=== PATIENT | male | born 1940 | race Caucasian/White ===

== ENCOUNTER → 2023-08-21 14:34 | Outpatient (REF) | payer MEDICARE, SELFPAY ==
[2023-08-21 17:04] LABS: Albumin 3.7 g/dl (3.5-5.0); Blood Urea Nitrogen 40 mg/dl (9-20); Calcium 8.6 mg/dl (8.4-10.2); Carbon Dioxide 19 mmol/L (22-30); Chloride 112 mmol/L (98-107); Glucose 91 mg/dl (70-99); Phosphorus 4.2 mg/dl (2.5-4.5); Potassium 5.1 mmol/L (3.5-5.1); Sodium 140 mmol/L (135-145); eGFR 49.56
== END ==
LOC: REG 14:34
PROVIDERS: ATTENDING PHYSICIAN Internal Medicine Cardiovascular Disease; FAMILY PHYSICIAN Family Medicine
DX: I50.22 Chronic systolic (congestive) heart failure (principal); I48.21 Permanent atrial fibrillation; I25.10 Atherosclerotic heart disease of native coronary artery without angina pectoris
CPT/HCPCS: 36415; 80069

== ENCOUNTER 2023-08-29 15:44 | Inpatient (IN) | payer MEDICARE, SELFPAY ==
[2023-08-29] VITALS (12 sets, daily range): BP systolic 87–116; BP diastolic 51–74; BMI 28.1; BMI 27.1
--- NOTE | 2023-08-29 10:33 | ED.GENMED ---
History of Present Illness
General
Chief Complaint: Change in Mental Status
Source: patient and family
Time Seen by Provider: 08/29/23 09:56
Travel History
Have you had any contact with someone who has COVID-19?: No
Do you have any symptoms of coronavirus? Fever > 100 degrees, chills, cough, shortness of breath, sore throat, loss of taste or smell, muscle aches, or headache?: No
History of Present Illness
History of Present Illness:
83-year-old male presents to the emergency room for evaluation of altered mental status. Patient noted to be more confused than his baseline. Patient suffered a CVA in June. Went to rehab is apparently doing fairly well walking independently.
He does have some residual aphasia and processing things from a physical standpoint was discharged from therapy recently. Over the past several days has been noted to, confused. He fell approximate 4 to 5 days ago. Unclear if he had a head
injury. Patient also complaining of left shoulder pain fall., No chills. Patient has adequate oral intake.
Past History
Past History
ED Past Medical History: Arrthythmia (AFib), CAD, COPD, Hypercholesterolemia, Hypothyroidism and Other (abd aneurysm BPH)
ED Past Surgical History: Bowel resection, Cardiac (coronary stents) and Other (stenting of aorta, hernia repair)
Social History
Tobacco: Former smoker
Alcohol: None
Drug: None
Personal:
Living: with family
Employment: Retired
Family History
Family History: Other; Negative Early CAD
Phy Exam
Physical Exam
Physical Exam:
General: Awake, Alert, Oriented X3. Appears chronically ill
Vitals: Soft blood pressure
Head: Atraumatic
Eyes: Pupils equal, EOMI
Throat: Airway intact, no exudates, dry mucosa
Neck: Trachea midline
Lungs: Clear and equal b/l
Heart: Regular rate, no murmurs
Abd: Soft, Nontender, No pulsatile mass
Neuro: Muscle strength equal throughout, difficulty evaluating left arm due to shoulder pain
Skin: Warm, dry, no rash
Extremities: pulses equal b/l, no edema
Course
Orders/Labs/Results
Orders:
Orders
08/29/23 10:20
Urinalysis Reflex To Culture Urgent
Date Specimen was Collected: 08/29/23
Time Specimen was Collected: 10:41
Urine Microscopic Reflex Cult Urgent
08/29/23 10:31
0.9% Sodium Chloride 500 ml [Nss] 500 ml IV BOLUS
08/29/23 10:32
CT Head W/o Iv Contrast Urgent
Comment:
Reason For Exam: altered mental status
08/29/23 10:33
CR Chest - 2 Views Urgent
Comment:
Reason For Exam: altered mental status
08/29/23 10:36
Shoulder, Left, Trauma CR [CR Shoulder, Trauma - Left] Urgent
Comment:
Reason For Exam: pain after a fall
08/29/23 10:47
Complete Blood Count/With Diff Urgent
Comprehensive Metabolic Panel Urgent
Lactic Acid Q4H
Comment: CANCEL 2nd LACTIC ACID IF 1st LACTIC ACID IS LESS THAN 2
Abnormal Lab Results
08/29/23 08/29/23
10:20 10:47
WBC 12.5 H 10^3/uL
(4.8-10.8)
RBC 3.62 L 10^6/uL
(4.70-6.10)
Hgb 9.9 L g/dL
(13.0-18.0)
Hct 30.2 L %
(39.0-52.0)
MCHC 32.8 L g/dL
(33.0-37.0)
RDW 20.8 H %
(11.5-14.5)
Plt Count 109 L 10^3/uL
(130-400)
Abs Immat Gran (auto) 0.1 H 10^3/uL
(0-0.05)
Absolute Neuts (auto) 10.9 H 10^3/uL
(1.4-6.5)
Absolute Lymphs (auto) 0.9 L 10^3/uL
(1.2-3.4)
Immature Gran % 0.7 H %
(0-0.5)
Neutrophils % 87.0 H %
(42.2-75.2)
Lymphocytes % 6.9 L %
(20.5-51.1)
Chloride 109 H mmol/L
(98-107)
Carbon Dioxide 21 L mmol/L
(22-30)
BUN 38 H mg/dl
(9-20)
Glucose 127 H mg/dl
(70-99)
Total Bilirubin 2.9 H mg/dl
(0.2-1.3)
Urine Ketones Trace A
(Negative)
Urine Bilirubin 1+ A
(Negative)
Leukocyte Esterase Rfl Trace A
(Negative)
08/29/23 10:47
08/29/23 10:47
Vital Signs
Initial and Last Documented VS:
Initial Vital Signs
Temp Pulse Resp BP
97.6 F 80 20 94/51
08/29/23 09:46 08/29/23 09:46 08/29/23 09:46 08/29/23 09:46
Last Documented Vital Signs
Temp Pulse Resp BP Pulse Ox
98.7 F 80 18 116/67 95
08/29/23 10:53 08/29/23 12:30 08/29/23 12:30 08/29/23 12:03 08/29/23 12:15
MDM/Problems Addressed
Differential Diagnosis Includes:
UTI, renal failure, electrode abnormality, dehydration, CVA
MDM/Problems Addressed:
Patient presents with increased confusion, difficulty ambulating. Gross muscle weakness on exam patient clearly cannot ambulate like he did a couple days ago. Exacerbating factors such as UTI or lab abnormality. Will hospitalize patient for
neurology evaluation, further workup.
Chronic conditions affecting care: HTN and CAD
*Radiology
Radiology exam reviewed: radiology read reviewed
*Pulse Oximetry
Patient hypoxic: no
*Critical Care Note
Total Time (30-74mins, 75-104mins- exclusive of procedures): Not Applicable
ED Attending Note
-
Portions of this chart may have been created with voice recognition software.� Occasional wrong word or��sound alike� substitutions may have occurred due to the inherent limitations of voice recognition software.
Discharge Plan
Departure
Patient Disposition: Admit
Date of Disposition: 08/29/23
Time of Disposition: 13:57
Admit to: Telemetry
Presentation/result/management discussed w/ accepting MD/DO: Hospitalist
Condition: Fair
Discharge Problem:
Altered mental status
Prescriptions:
No Action
levothyroxine 50 MCG tablet
50 mcg PO DAILY
furosemide 40 mg Tablet
40 mg PO DAILY Qty: 0 0RF
atorvastatin 40 mg Tablet
40 mg PO HS
Eliquis 5 mg Tablet
5 mg PO BID
Entresto 24-26 mg Tablet
1 tab PO BID
Trelegy Ellipta 100-62.5-25 mcg Blister With Device
1 inh INHALATION DAILY
pantoprazole 40 mg tablet,delayed release (DR/EC)
40 mg PO HS
finasteride 5 MG tablet
5 mg PO DAILY
Referrals:
Tashi Rueda MD [Family Provider] -
Interventions
Interventions:
*Risk Screen - Suicide Last Done: 08/29/23 10:40
*General Assessment Last Done: 08/29/23 10:40
*Neglect/Abuse Screening Last Done: 08/29/23 10:40
ED- Fall Risk Assessment Last Done: 08/29/23 10:40
*ED COVID-19 Vaccine History Last Done: 08/29/23 09:46
ED- Pulmonary Assessment Last Done: 08/29/23 10:40
ED-Psychological Assessment Last Done: 08/29/23 10:40
ED- Neurological Assessment Last Done: 08/29/23 10:40
ED- Cardiac Assessment Last Done: 08/29/23 10:40
ED Swallowing Screen Last Done: 08/29/23 10:40
Discharge Date and Time
Print Language: BENGALI
[2023-08-29] MEDS: NSS 500 IV (10:54)
[2023-08-29 11:04] LABS: Urine Albumin Trace (Neg - Trace); Urine Bilirubin 1+ (Negative); Urine Character Clear (Clear); Urine Color Amber; Urine Glucose Negative (Negative); Urine Ketone Trace (Negative); Urine Leukocyte Trace (Negative); Urine Nitrite Negative (Negative); Urine Occult Blood Negative (Negative); Urine Specific Gravity 1.025 (<1.030); Urine Urobilinogen 1+ (Neg - 1+)
[2023-08-29 11:09] LABS: % Basophils 0.3 % (0-2); % Eosinophils 0.1 % (0-6); % Immature Granulocytes 0.7 % (0-0.5); % Lymphocytes 6.9 % (20.5-51.1); Absolute Immature Granulocytes 0.1 10^3/uL (0-0.05); Absolute Lymphocytes 0.9 10^3/uL (1.2-3.4); Absolute Monocytes 0.6 10^3/uL (0.1-0.6); Absolute Neutrophils 10.9 10^3/uL (1.4-6.5); Hematocrit 30.2 % (39.0-52.0); Hemoglobin 9.9 g/dL (13.0-18.0); Mean Corp Hgb Conc. 32.8 g/dL (33.0-37.0); Mean Corpuscular Hgb 27.3 pg (27.0-31.0); Mean Corpuscular Volume 83.4 fL (80.0-94.0); Mean Platelet Volume 9.9 fL (7.4-10.4); Nucleated Red Blood Cells % 0 % (-); Platelet Count 109 10^3/uL (130-400); Red Blood Cell Count 3.62 10^6/uL (4.70-6.10); Red Cell Dist. Width 20.8 % (11.5-14.5); White Blood Cell Count 12.5 10^3/uL (4.8-10.8)
[2023-08-29 11:17] LABS: Lactic Acid 1.9 mmol/L (0.7-2.0)
[2023-08-29 11:18] LABS: ALT (SGPT) 12 U/L (0-50); AST (SGOT) 20 U/L (17-59); Albumin 3.7 g/dl (3.5-5.0); Alkaline Phosphatase 70 U/L (38-126); Blood Urea Nitrogen 38 mg/dl (9-20); Calcium 8.7 mg/dl (8.4-10.2); Carbon Dioxide 21 mmol/L (22-30); Chloride 109 mmol/L (98-107); Estimated Creatinine Clearance 41 ml/min; Glucose 127 mg/dl (70-99); Potassium 4.3 mmol/L (3.5-5.1); Sodium 138 mmol/L (135-145); Total Bilirubin 2.9 mg/dl (0.2-1.3); Total Protein 7.3 g/dl (6.3-8.2); eGFR 54.17
[2023-08-29 11:20] LABS: Urine Red Blood Cell 0-2 /HPF (0-2); Urine Squamous Cell 0-2 /LPF (Few); Urine White Cell 0-2 /HPF (0-5)
--- NOTE | 2023-08-29 14:58 | HPS.HSE ---
Family Physician
-
Family Physician: Tashi Rueda
Chief Complaint
-
Confusion, left-sided weakness
History of Present Illness
83-year-old male with a past medical history of recent stroke in June 2023 with residual aphasia, permanent atrial fibrillation on Eliquis, CHF, COPD, hypertension, hyperlipidemia, and hypothyroidism presents with a 1 day history of ambulatory
dysfunction, left-sided weakness, and confusion. Patient was admitted at [facility] in June 2023 for stroke, and discharged to short-term rehab. His only residual deficits were aphasia per family. He was released from the short-term
rehab to live with his son and [id number] 4-6 weeks ago. Yesterday, he developed confusion, and was having increased falls due to ambulatory dysfunction. He denies chest pain, shortness of breath, or palpitations. No fever, no vomiting.
Daughter reports that he has not missed any doses of his Eliquis.
Medical History
Past Medical History
Past Medical History: Reports Other
Additional Past Medical History:
Hypothyroidism, COPD, CHF, hyperlipidemia, essential hypertension, permanent atrial fibrillation on Xarelto, history of CVA, history of brachial artery injury intraoperatively requiring repair, history of lung granuloma, COVID-19 viral infection in
20, history of colitis, former smoker, AAA, BPH
Past Surgical History: Reports Other
Additional Past Surgical History:
RLE bypass, bowel resection, coronary stents, stenting of aorta, hernia repair, brachial artery injury intraoperatively requiring repair
Social History
Tobacco: Former Smoker
Alcohol: None
Drug: None
Living: With Family
Family History
Family History: Not pertinent
Allergies / Home Medications
Allergies reflects when Allergies were last updated in [facility].
Home Medications with original date entered in [facility]
Allergy/Medication List:
Allergies
Allergy/AdvReac Type Severity Reaction Status Date / Time
adhesive tape Allergy Unknown Verified 08/29/23 09:49
Iodinated Contrast Media Allergy BURNING Verified 08/29/23 09:49
[IV Dye, Iodine Containing] SENSATION
Home Medications Table - record
�Medication �Instructions �Recorded �Confirmed
finasteride 5 mg tablet 5 mg PO DAILY Urinary issue 06/07/20 08/29/23
levothyroxine 50 mcg tablet 50 mcg PO DAILY Thyroid 06/07/20 08/29/23
acetaminophen 325 mg tablet 650 mg PO Q6HPRN PRN mild pain 08/29/23 08/29/23
(Tylenol)
apixaban 5 mg tablet (Eliquis) 5 mg PO BID Blood Clot 08/29/23 08/29/23
Prevention/Tx
atorvastatin 40 mg tablet 40 mg PO HS High Cholesterol 08/29/23 08/29/23
fluticasone fur. 100 mcg-umeclid 1 inh inhalation R DAILY 08/29/23 08/29/23
62.5 mcg-vilant 25 mcg Lung/Breathing Issues
inhalat.powder (Trelegy Ellipta)
furosemide 40 mg tablet 40 mg PO DAILY Fluid 08/29/23 08/29/23
Retention/Swelling
pantoprazole 40 mg tablet,delayed 40 mg PO HS Gastrointestinal Issue 08/29/23 08/29/23
release
sacubitril 24 mg-valsartan 26 mg 1 tab PO BID Heart Failure 08/29/23 08/29/23
tablet (Entresto)
Review of Systems
-
A 12 point ROS was completed and negative except as noted: Yes
Physical Exam
Vital Signs
Vital Signs
Temp Pulse Resp BP Pulse Ox
98.1 F 77 16 96/64 96
08/29/23 14:48 08/29/23 14:48 08/29/23 14:48 08/29/23 14:48 08/29/23 14:48
Physical Exam
General: No Apparent Distress
HEENT: NormoCephalic, Anicteric and Moist mucous membranes
Cardiac: S1/S2 and Irregular Rhythm
GI: Soft, Non Tender, Non Distended and Normal Bowel Sounds
Musculoskeletal: No Clubbing, No Cyanosis, Edema, Left Lower Extremity and Edema, Right Lower Extremity
Skin: Warm and Dry
Neuro: Awake, Alert, Oriented (Oriented to person and place, not time) and Other (Aphasia noted. Left upper extremity and left lower extremity weakness noted)
Psych: Calm
Laboratory Results
-
08/29/23 10:47
08/29/23 10:47
Laboratory Results
Lactic Acid Cancelled 08/29/23 14:45
Total Bilirubin 2.9 mg/dl (0.2-1.3) H 08/29/23 10:47
AST 20 U/L (17-59) 08/29/23 10:47
ALT 12 U/L (0-50) 08/29/23 10:47
Alkaline Phosphatase 70 U/L (38-126) 08/29/23 10:47
Impression/Plan
-
HPI: 83-year-old male with a past medical history of recent stroke in June 2023 with residual aphasia, permanent atrial fibrillation on Eliquis, CHF, COPD, hypertension, hyperlipidemia, and hypothyroidism presents with a 1 day history of
ambulatory dysfunction, left-sided weakness, and confusion. Patient was admitted at [facility] in June 2023 for stroke, and discharged to short-term rehab. His only residual deficits were aphasia per family. He was released from the
short-term rehab to live with his son and [id number] 4-6 weeks ago. Yesterday, he developed confusion, and was having increased falls due to ambulatory dysfunction. He denies chest pain, shortness of breath, or palpitations. No fever, no
vomiting. Daughter reports that he has not missed any doses of his Eliquis.
#Left-sided weakness
#Altered mental status
Concerning for new CVA
Hold Eliquis, check brain MRI/MRA, check fasting lipid profile, check hemoglobin A1c
Give aspirin 325 mg stat, start aspirin 81 mg daily until MRI returns, continue statin
Consult neurology, PT/OT/SPL
Resume Eliquis when cleared by neurology
#History of recent stroke in June 2023 with residual aphasia
#History of hypertension
#Chronic CHF
Blood pressure soft, hold Entresto, hold Lasix
Will order midodrine for 5 mg every 4 hours as needed
#BPH
Continue finasteride
#COPD
Stable, continue bronchodilators
#Hypothyroidism
Continue Synthroid
#Gastroesophageal reflux disease
Continue PPI
DVT prophylaxis�subcu lovenox until neurology clears patient to resume Eliquis
Full code
Updated daughter and [id number] at bedside on 08/28
Total time spent to see the patient on the floor, examine the patient, review data and lab results, discuss treatment plan with patient, nursing staff around 75 minutes.
--- NOTE | 2023-08-29 15:49 | EDRN ---
pharmacy notified that orders were processed
--- NOTE | 2023-08-29 16:06 | EDRN ---
this RN called the receiving unit and notified them that paper report was going to be tubed up
[2023-08-29] MEDS: LOVENOX 40 MG SC (18:42)
[2023-08-29] MEDS: ASPIRIN 325 MG PO (19:48)
[2023-08-29] MEDS: PROTONIX 40 MG PO (22:24)
[2023-08-29] MEDS: LIPITOR 40 MG PO (22:24)
[2023-08-30] VITALS (8 sets, daily range): BP systolic 96–142; BP diastolic 54–94; PULSE 77; O2SAT 95; BMI 26.6
[2023-08-30] MEDS: SYNTHROID 50 MCG PO (05:44)
[2023-08-30 06:14] LABS: Hematocrit 30.7 % (39.0-52.0); Hemoglobin 9.7 g/dL (13.0-18.0); Mean Corp Hgb Conc. 31.6 g/dL (33.0-37.0); Mean Corpuscular Volume 85.5 fL (80.0-94.0); Mean Platelet Volume 9.1 fL (7.4-10.4); Platelet Count 98 10^3/uL (130-400); Red Blood Cell Count 3.59 10^6/uL (4.70-6.10); Red Cell Dist. Width 20.5 % (11.5-14.5); White Blood Cell Count 6.3 10^3/uL (4.8-10.8)
[2023-08-30 06:41] LABS: Blood Urea Nitrogen 36 mg/dl (9-20); Calcium 8.6 mg/dl (8.4-10.2); Carbon Dioxide 19 mmol/L (22-30); Chloride 111 mmol/L (98-107); Estimated Creatinine Clearance 46 ml/min; Glucose 97 mg/dl (70-99); HDL Cholesterol 23 mg/dl; LDL Cholesterol, Calculated 30 mg/dl; Magnesium 2.2 mg/dl (1.6-2.3); Potassium 3.6 mmol/L (3.5-5.1); Sodium 139 mmol/L (135-145); Total Cholesterol 66 mg/dl (50-199); Triglyceride 69 mg/dl (10-149); Very Low Density Lipoprotein 13 mg/dl (0-30); eGFR 59.63
[2023-08-30] MEDS: SYMBICORT 80/4.5 MCG INHALER 2 PUFF INH ×2 (07:48→19:50)
[2023-08-30] MEDS: SPIRIVA RESPIMAT 2.5 MCG 2 PUFF INH (07:48)
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
[2023-08-30] MEDS: PROSCAR 5 MG PO (08:11)
[2023-08-30] MEDS: ASPIR LOW (ENTERIC COATED) 81 MG PO (08:11)
--- NOTE | 2023-08-30 09:02 | W.PN.HOSP.TC ---
Today's Communication/Plan
-
see bold
Assessment / Plan
Assessment / Plan
HPI: 83-year-old male with a past medical history of recent stroke in June 2023 with residual aphasia, permanent atrial fibrillation on Eliquis, CHF, COPD, hypertension, hyperlipidemia, and hypothyroidism presents with a 1 day history of
ambulatory dysfunction, left-sided weakness, and confusion. Patient was admitted at [facility] in June 2023 for stroke, and discharged to short-term rehab. His only residual deficits were aphasia per family. He was released from the
short-term rehab to live with his son and jyqmiuiw-nh-pfl 4-6 weeks ago. Yesterday, he developed confusion, and was having increased falls due to ambulatory dysfunction. He denies chest pain, shortness of breath, or palpitations. No fever, no
vomiting. Daughter reports that he has not missed any doses of his Eliquis.
#Acute/subacute left CVA
#Left-sided weakness
#Altered mental status
MRI shows few small foci of nonhemorrhagic acute/subacute infarcts in the left cerebral hemisphere
Neurology recommends aspirin 81 mg x 4 weeks with the Eliquis, continue statin
Consult neurology, PT/OT/SPL
Resume Eliquis tomorrow per neurology
#History of recent stroke in June 2023 with residual aphasia
#History of hypertension
#Chronic CHF
Blood pressure soft, hold Entresto, hold Lasix
Improved, monitor for now
#BPH
Continue finasteride
#COPD
Stable, continue bronchodilators
#Hypothyroidism
Continue Synthroid
#Gastroesophageal reflux disease
Continue PPI
DVT prophylaxis�subcu lovenox today, eliquis tomorrow
Full code
Updated daughter and ldwusmfw-vf-zab at bedside on 08/28
Total time spent to see the patient on the floor, examine the patient, review data and lab results, discuss treatment plan with patient, nursing staff around 35 minutes.
Physical Exam
General: No Apparent Distress
HEENT: NormoCephalic, Anicteric and Moist mucous membranes
Cardiac: S1/S2 and Irregular Rhythm
GI: Soft, Non Tender, Non Distended and Normal Bowel Sounds
Musculoskeletal: No Clubbing, No Cyanosis, Edema, Left Lower Extremity and Edema, Right Lower Extremity
Skin: Warm and Dry
Neuro: Awake, Alert, Oriented (Oriented to person and place, not time) and Other (Aphasia noted. Left upper extremity and left lower extremity weakness noted)
Psych: Calm
Anticipated Discharge: Within 24 hours
Subjective/Interval History
-
Date of Service: August 30, 2023
Patient's left sided weakness and confusion are improved. No fever, no vomiting.
Objective Data
-
Labs:
Laboratory Results
08/30/23
05:42
WBC 6.3
Hgb 9.7 L
Hct 30.7 L
Plt Count 98 L
Sodium 139
Potassium 3.6
Chloride 111 H
Carbon Dioxide 19 L
BUN 36 H
Creatinine 1.2
Glucose 97
Calcium 8.6
Vital Signs:
Vital Signs
Temp Pulse Resp BP Pulse Ox
97.4 F 55 18 142/79 100
08/30/23 07:00 08/30/23 07:00 08/30/23 07:00 08/30/23 07:00 08/30/23 07:00
I&O
08/29/23 08/30/23 08/31/23
06:59 06:59 06:59
Intake Total 1060 / 1060
Output Total 600 / 600
Balance 460 / 460
[2023-08-30 09:23] LABS: Glycohemoglobin (HgbA1c) 4.9 % (4.0-5.6)
--- NOTE | 2023-08-30 12:32 | PTOTSP ---
ST Acute Care Evaluation:
Pt presents with mild oropharyngeal dysphagia characterized by impulsivity, reduced insight to deficits, mildly prolonged mastication and bolus formation, mildly reduced bolus formation, and intermittent deficits in airway protection with ingestion
of liquids.
Pt admitted that he is having more difficulty communicating than his baseline, and thus pt would benefit from a comprehensive cognitive communication evaluation.
Recommendations:
- DOWNGRADE pt's diet to SOFT BITE SIZED SOLIDS (IDDSI 6) and continue with REGULAR THIN LIQUIDS, meds whole in applesauce as needed.
- General aspiration precautions: Sitting upright for all PO intake; monitor intake rate and bite size; alternate bites/sips; intermittent supervision; no talking while eating/drinking.
- SLIP COVER MAKER to contact family re: baseline cognitive communication function as well as possibility of accessing hearing aids.
- SLIP COVER MAKER to complete comprehensive cognitive communication evaluation.
- SLIP COVER MAKER will continue to follow for skilled dysphagia tx.
[2023-08-30 12:58] LABS: TSH Reflex To Free T4 3.51 uIU/ml (0.47-4.68)
--- NOTE | 2023-08-30 15:48 | CM ---
Spoke with pts son Tomer
Pt lives in a apartment/in-law suite within his son's home. There are 14 steps to pts apartment, home is multi-story
Pt is confused at baseline, performs adl's with assist and cues, ambulates with rolling walker
DME - rolling walker, shower chair
SNF - has been to [facility] and [facility] in past
HH - has had [facility] in past
Will have ride at d/c
PCP - Dr Rueda
Pharm - [facility]
Seen by PT/OT - recommending SNF. Discussed with son - prefers [facility]. Will send referral in [facility]
Plan - anticipate SNF when medically ready
[2023-08-30] MEDS: LOVENOX 40 MG SC (17:02)
[2023-08-30 17:42] LABS: Folate 10.1 ng/ml (2.76-20); Vitamin B12 781 pg/ml (239-931)
[2023-08-30] MEDS: PROTONIX 40 MG PO (21:43)
[2023-08-30] MEDS: LIPITOR 40 MG PO (21:43)
[2023-08-31] VITALS (8 sets, daily range): BP systolic 96–144; BP diastolic 44–90; PULSE 84; BMI 25.9
[2023-08-31] MEDS: SYNTHROID 50 MCG PO (05:07)
[2023-08-31 06:04] LABS: Hematocrit 29.3 % (39.0-52.0); Hemoglobin 9.3 g/dL (13.0-18.0); Mean Corp Hgb Conc. 31.7 g/dL (33.0-37.0); Mean Corpuscular Hgb 27.3 pg (27.0-31.0); Mean Corpuscular Volume 85.9 fL (80.0-94.0); Mean Platelet Volume 9.4 fL (7.4-10.4); Platelet Count 106 10^3/uL (130-400); Red Blood Cell Count 3.41 10^6/uL (4.70-6.10); Red Cell Dist. Width 20.4 % (11.5-14.5); White Blood Cell Count 7.6 10^3/uL (4.8-10.8)
[2023-08-31 06:38] LABS: Blood Urea Nitrogen 35 mg/dl (9-20); Calcium 8.4 mg/dl (8.4-10.2); Carbon Dioxide 21 mmol/L (22-30); Chloride 112 mmol/L (98-107); Estimated Creatinine Clearance 50 ml/min; Glucose 102 mg/dl (70-99); Magnesium 2.1 mg/dl (1.6-2.3); Sodium 137 mmol/L (135-145); eGFR > 60.00
--- NOTE | 2023-08-31 07:39 | W.PN.NEURO.1 ---
Today's Communication / Plan
-
-Resume Apixaban full dosing
-Keep aspirin 81 mg daily and take this medication for 4 weeks to give some extra protection against atheroembolic stroke
-Continue Atorvastatin 40 mg daily
-Speech, physical therapies
-Goal normotension
-NIH and neurologic checks
Will follow as needed call with questions and concerns
Neuro Assessment/Plan
Assessment
Assessment: Embolic appearing strokes either atheroembolic or cardioembolic in source, occurred despite compliance with apixaban patient with multiple risk factors or atheroembolic stroke as well as risk for embolic stroke with atrial fibrillation.
Presented with sudden change in ambulation, mild aphasia
Subjective/Objective
Subjective Data
Date of Service: August 31, 2023
No acute events, denies headache, eating okay
Objective Data
Vital Signs
Temp Pulse Resp BP Pulse Ox
98.1 F 86 24 113/44 94
08/31/23 03:29 08/31/23 03:29 08/31/23 03:29 08/31/23 03:29 08/31/23 03:29
Lab Results
08/31/23 05:43
08/31/23 05:43
Sodium 137 mmol/L (135-145) 08/31/23 05:43
Potassium 4.0 mmol/L (3.5-5.1) 08/31/23 05:43
BUN 35 mg/dl (9-20) H 08/31/23 05:43
Glucose 102 mg/dl (70-99) H 08/31/23 05:43
Calcium 8.4 mg/dl (8.4-10.2) 08/31/23 05:43
LDL Cholesterol, Calc 30 mg/dl 08/30/23 05:42
Vitamin B12 781 pg/ml (239-931) 08/30/23 05:42
Patient Allergies
adhesive tape Allergy (Verified 08/29/23 09:49)
Unknown
Iodinated Contrast Media [IV Dye, Iodine Containing] Allergy (Verified 08/29/23 09:49)
BURNING SENSATION
Review of Systems
-
History Source: Patient
All other systems: Reviewed and negative
Constitutional: No Symptoms
EENT: No Symptoms Reported
Respiratory: No Symptoms
Cardiac: No Symptoms
Abdomen/GI: No Symptoms
Genitourinary: No Symptoms
Musculoskeletal: No Symptoms
Skin: No Symptoms
Neuro: Speech Problem
Endocrine: No Symptoms
Hematologic / Lymphatic: No Symptoms
Allergy / Immunology: No Symptoms
Physical Exam
-
General: Comfortable
Eyes: No Ptosis
HEENT: Normocephalic
Neck: No Bruits Bilaterally
Respiratory: Clear to Auscultation
Cardiac: Regular Rhythm
GI: Normal Bowel Sounds
Skin: Unremarkable
Extremities: No Clubbing
Psych: Confused; Negative Intact Judgement/Insight
Extended Neurological Exam
Attention Span & Concentration: Awake, Alert and Interactive
Memory: Reduced
Tremor: Hand Tremor Absent
Involuntary Movement: None
Speech: Expressive Aphasia, Receptive Aphasia and Dysarthric
Cranial Nerve II: Left Eye: Pupillary Reactivity Unremarkable, Pupillary Size Unremarkable and Visual Jackson Intact
Cranial Nerve II: Right Eye: Pupillary Reactivity Unremarkable, Pupillary Size Unremarkable and Visual Jackson Intact
Cranial Nerves III, IV, : Extraocular Movement: Extraocular Movement Full in all Directions
Pronator Drift: Drift in Left Upper Extremity
Deep Tendon Reflexes: Trace Throughout
Touch Sensation: Withdrawal to Pain
Coordination: Qpzuxe-huvw-trzoeh Testing Unremarkable
Data Reviewed
-
CT Head: Report Reviewed and Image Reviewed
MRI Head: Report Reviewed and Image Reviewed
MRA Head: Report Reviewed and Image Reviewed
Carotid Ultrasound: Report Reviewed
Echocardiogram: Report Reviewed
Labs: Report Reviewed
[2023-08-31] MEDS: SPIRIVA RESPIMAT 2.5 MCG 2 PUFF INH (08:09)
[2023-08-31] MEDS: SYMBICORT 80/4.5 MCG INHALER 2 PUFF INH ×2 (08:09→20:55)
--- NOTE | 2023-08-31 08:28 | W.PN.HOSP.TC ---
Today's Communication/Plan
-
Discharge to rehab when bed available
Assessment / Plan
Assessment / Plan
HPI: 83-year-old male with a past medical history of recent stroke in June 2023 with residual aphasia, permanent atrial fibrillation on Eliquis, CHF, COPD, hypertension, hyperlipidemia, and hypothyroidism presents with a 1 day history of
ambulatory dysfunction, left-sided weakness, and confusion. Patient was admitted at [facility] in June 2023 for stroke, and discharged to short-term rehab. His only residual deficits were aphasia per family. He was released from the
short-term rehab to live with his son and ezswzvvg-oc-caf 4-6 weeks ago. Yesterday, he developed confusion, and was having increased falls due to ambulatory dysfunction. He denies chest pain, shortness of breath, or palpitations. No fever, no
vomiting. Daughter reports that he has not missed any doses of his Eliquis.
#Acute/subacute left CVA
#Left-sided weakness
#Altered mental status
MRI shows few small foci of nonhemorrhagic acute/subacute infarcts in the left cerebral hemisphere
Neurology recommends aspirin 81 mg x 4 weeks, then stop, continue statin (LDL 30, A1C 4.9)
PT/OT/SPL rec STR. Resume Eliquis 08/31/23 per neurology
#History of recent stroke in June 2023 with residual aphasia
#History of hypertension
#Chronic CHF
Blood pressure improved, hold Entresto, resume Lasix
Improved, monitor for now
#BPH
Continue finasteride
#COPD
Stable, continue bronchodilators
#Hypothyroidism
Continue Synthroid
#Gastroesophageal reflux disease
Continue PPI
DVT prophylaxis�eliquis
Full code
Total time spent to see the patient on the floor, examine the patient, review data and lab results, discuss treatment plan with patient, nursing staff around 35 minutes.
Physical Exam
General: No Apparent Distress
HEENT: NormoCephalic, Anicteric and Moist mucous membranes
Cardiac: S1/S2 and Irregular Rhythm
GI: Soft, Non Tender, Non Distended and Normal Bowel Sounds
Musculoskeletal: No Clubbing, No Cyanosis, Edema, Left Lower Extremity and Edema, Right Lower Extremity
Skin: Warm and Dry
Neuro: Awake, Alert, Oriented (Oriented to person and place, not time) and Other (Aphasia noted. Left upper extremity and left lower extremity weakness noted)
Psych: Calm
Anticipated Discharge: Within 24 hours
Subjective/Interval History
-
Date of Service: August 31, 2023
Patient is left-sided weakness continues to improve. He still has aphasia, and confusion. No fever, no vomiting.
Objective Data
-
Labs:
Laboratory Results
08/31/23
05:43
WBC 7.6
Hgb 9.3 L
Hct 29.3 L
Plt Count 106 L
Sodium 137
Potassium 4.0
Chloride 112 H
Carbon Dioxide 21 L
BUN 35 H
Creatinine 1.1
Glucose 102 H
Calcium 8.4
Vital Signs:
Vital Signs
Temp Pulse Resp BP Pulse Ox
98.1 F 78 16 113/44 95
08/31/23 03:29 08/31/23 08:16 08/31/23 08:16 08/31/23 03:29 08/31/23 08:16
I&O
08/30/23 08/31/23 09/01/23
06:59 06:59 06:59
Intake Total 1060 / 1060 600 / 600
Output Total 600 / 600 550 / 550
Balance 460 / 460 50 / 50
[2023-08-31] MEDS: ASPIR LOW (ENTERIC COATED) 81 MG PO (09:21)
[2023-08-31] MEDS: ELIQUIS 5 MG PO ×2 (09:21→19:43)
[2023-08-31] MEDS: LASIX 40 MG PO (09:22)
[2023-08-31] MEDS: PROSCAR 5 MG PO (09:22)
--- NOTE | 2023-08-31 11:43 | CM ---
Addendum entered by Salima Garrett 08/31/23 15:04:
Called Savannah at [facility] to review referral
Original Note:
Case management following for d/c planning
Recommended SNF when medically stable
Spoke with daughter at bedside - aware of plan
CM will continue to follow for d/c needs
Plan - for SNF when medically stable - will need 3 might stay
[2023-08-31] MEDS: TYLENOL 650 MG PO (20:01)
[2023-08-31] MEDS: LIPITOR 40 MG PO (21:36)
[2023-08-31] MEDS: PROTONIX 40 MG PO (21:36)
[2023-09-01] VITALS (7 sets, daily range): BP systolic 78–125; BP diastolic 49–84; PULSE 80; O2SAT 99; BMI 25.9
[2023-09-01] MEDS: SYNTHROID 50 MCG PO (05:53)
--- NOTE | 2023-09-01 07:53 | W.PN.HOSP.TC ---
Today's Communication/Plan
-
Discharge to short-term rehab when bed available
Assessment / Plan
Assessment / Plan
HPI: 83-year-old male with a past medical history of recent stroke in June 2023 with residual aphasia, permanent atrial fibrillation on Eliquis, CHF, COPD, hypertension, hyperlipidemia, and hypothyroidism presents with a 1 day history of
ambulatory dysfunction, left-sided weakness, and confusion. Patient was admitted at [facility] in June 2023 for stroke, and discharged to short-term rehab. His only residual deficits were aphasia per family. He was released from the
short-term rehab to live with his son and [id number]-[id number] 4-6 weeks ago. Yesterday, he developed confusion, and was having increased falls due to ambulatory dysfunction. He denies chest pain, shortness of breath, or palpitations. No fever, no
vomiting. Daughter reports that he has not missed any doses of his Eliquis.
#Acute/subacute left CVA
#Left-sided weakness
#Altered mental status
MRI shows few small foci of nonhemorrhagic acute/subacute infarcts in the left cerebral hemisphere
Neurology recommends aspirin 81 mg x 4 weeks through 09/25/23. Eliquis resumed 08/31/2023 per neurology.
Continue statin (LDL 30, A1C 4.9). PT/OT/SPL rec STR.
Medically stable for discharge to short-term rehab when bed available.
#History of recent stroke in June 2023 with residual aphasia
#History of hypertension
#Chronic CHF
Blood pressure improved, can resume Lasix and Entresto
#Permanent atrial fibrillation
Continue Eliquis
Rate controlled without any beta-blockers
#Memory impairment concerning for dementia
Check B12, TSH. Follow-up with Dr. Chan outpatient for neuropsychiatric testing.
#BPH
Continue finasteride
#COPD
Stable, continue bronchodilators
#Hypothyroidism
Continue Synthroid
#Gastroesophageal reflux disease
Continue PPI
DVT prophylaxis�eliquis
Full code
Updated son on phone 08/31
Total time spent to see the patient on the floor, examine the patient, review data and lab results, discuss treatment plan with patient, nursing staff around 50 minutes.
Physical Exam
General: No Apparent Distress
HEENT: NormoCephalic, Anicteric and Moist mucous membranes
Cardiac: S1/S2 and Irregular Rhythm
GI: Soft, Non Tender, Non Distended and Normal Bowel Sounds
Musculoskeletal: No Clubbing, No Cyanosis, Edema, Left Lower Extremity and Edema, Right Lower Extremity
Skin: Warm and Dry
Neuro: Waxing waning confusion. Awake, Alert, Oriented to person and place, not time. Aphasia noted. Left upper extremity and left lower extremity weakness noted
Psych: Calm
Anticipated Discharge: 24 - 48 hours
Subjective/Interval History
-
Date of Service: September 01, 2023
No acute events. Confusion waxes and wanes. No fever, no vomiting.
Objective Data
-
Labs:
Laboratory Results
09/01/23
06:00
WBC Pending
Hgb Pending
Hct Pending
Plt Count Pending
Sodium Pending
Potassium Pending
Chloride Pending
Carbon Dioxide Pending
BUN Pending
Creatinine Pending
Glucose Pending
Calcium Pending
Vital Signs:
Vital Signs
Temp Pulse Resp BP Pulse Ox
97.5 F 81 20 125/67 94
09/01/23 03:37 09/01/23 03:37 09/01/23 03:37 09/01/23 03:37 09/01/23 03:37
I&O
08/31/23 09/01/23 09/02/23
06:59 06:59 06:59
Intake Total 600 / 600 520 / 520
Output Total 550 / 550
Balance 50 / 50 520 / 520
[2023-09-01] MEDS: SYMBICORT 80/4.5 MCG INHALER 2 PUFF INH ×2 (08:08→18:12)
[2023-09-01] MEDS: SPIRIVA RESPIMAT 2.5 MCG 2 PUFF INH (08:08)
[2023-09-01 09:25] LABS: Hematocrit 27.2 % (39.0-52.0); Hemoglobin 8.8 g/dL (13.0-18.0); Mean Corp Hgb Conc. 32.4 g/dL (33.0-37.0); Mean Corpuscular Hgb 26.7 pg (27.0-31.0); Mean Corpuscular Volume 82.4 fL (80.0-94.0); Mean Platelet Volume 10.5 fL (7.4-10.4); Platelet Count 110 10^3/uL (130-400); Red Cell Dist. Width 20.4 % (11.5-14.5); White Blood Cell Count 6.6 10^3/uL (4.8-10.8)
[2023-09-01] MEDS: ASPIR LOW (ENTERIC COATED) 81 MG PO (09:31)
[2023-09-01] MEDS: PROSCAR 5 MG PO (09:31)
[2023-09-01] MEDS: ELIQUIS 5 MG PO ×2 (09:31→20:43)
[2023-09-01] MEDS: LASIX 40 MG PO (09:31)
--- NOTE | 2023-09-01 10:27 | CM ---
Per Attending's request, contacted [facility]; spoke with Admissions office; unable to accept patient today.
CM will follow up with Savannah @ [facility] on Sunday
[2023-09-01 10:44] LABS: Blood Urea Nitrogen 34 mg/dl (9-20); Calcium 8.3 mg/dl (8.4-10.2); Carbon Dioxide 19 mmol/L (22-30); Chloride 111 mmol/L (98-107); Estimated Creatinine Clearance 55 ml/min; Glucose 95 mg/dl (70-99); Potassium 3.7 mmol/L (3.5-5.1); Sodium 136 mmol/L (135-145); eGFR > 60.00
[2023-09-01] MEDS: ENTRESTO 24 MG/26 MG 1 TAB PO (20:43)
[2023-09-01] MEDS: PROTONIX 40 MG PO (21:10)
[2023-09-01] MEDS: LIPITOR 40 MG PO (21:10)
[2023-09-02 03:47] VITALS: BP 121/62
[2023-09-02 06:00] VITALS: BMI 25.4
[2023-09-02] MEDS: SYNTHROID 50 MCG PO (06:04)
[2023-09-02 08:04] VITALS: BP 99/54
--- NOTE | 2023-09-02 08:05 | W.PN.HOSP.TC ---
Today's Communication/Plan
-
Discharge to short-term rehab when bed available
Assessment / Plan
Assessment / Plan
HPI: 83-year-old male with a past medical history of recent stroke in June 2023 with residual aphasia, permanent atrial fibrillation on Eliquis, CHF, COPD, hypertension, hyperlipidemia, and hypothyroidism presents with a 1 day history of
ambulatory dysfunction, left-sided weakness, and confusion. Patient was admitted at [facility] in June 2023 for stroke, and discharged to short-term rehab. His only residual deficits were aphasia per family. He was released from the
short-term rehab to live with his son and [id number] 4-6 weeks ago. Yesterday, he developed confusion, and was having increased falls due to ambulatory dysfunction. He denies chest pain, shortness of breath, or palpitations. No fever, no
vomiting. Daughter reports that he has not missed any doses of his Eliquis.
#Acute/subacute left CVA
#Left-sided weakness
#Altered mental status
MRI shows few small foci of nonhemorrhagic acute/subacute infarcts in the left cerebral hemisphere
Neurology recommends aspirin 81 mg x 4 weeks through 09/25/23. Eliquis resumed 08/31/2023 per neurology.
Continue statin (LDL 30, A1C 4.9). PT/OT/SPL rec STR.
Medically stable for discharge to short-term rehab when bed available.
#History of recent stroke in June 2023 with residual aphasia
#Acute on chronic normocytic anemia
Hemoglobin 8.8 today, was 9.9 upon admission
B12/folic acid normal, check iron studies, folic acid
Trend hemoglobin
#History of hypertension
#Chronic CHF
Blood pressure improved, resumed Lasix and Entresto with hold parameters
#Permanent atrial fibrillation
Continue Eliquis
Rate controlled without any beta-blockers
#Memory impairment concerning for dementia
B12, TSH normal. Follow-up with Dr. Chan outpatient for neuropsychiatric testing.
#BPH
Continue finasteride
#COPD
Stable, continue bronchodilators
#Hypothyroidism
Continue Synthroid
#Gastroesophageal reflux disease
Continue PPI
DVT prophylaxis�eliquis
Full code
Updated son on phone 08/31
Total time spent to see the patient on the floor, examine the patient, review data and lab results, discuss treatment plan with patient, nursing staff around 35 minutes.
Physical Exam
General: No Apparent Distress
HEENT: NormoCephalic, Anicteric and Moist mucous membranes
Cardiac: S1/S2 and Irregular Rhythm
GI: Soft, Non Tender, Non Distended and Normal Bowel Sounds
Musculoskeletal: No Clubbing, No Cyanosis, Edema, Left Lower Extremity and Edema, Right Lower Extremity
Skin: Warm and Dry
Neuro: Waxing waning confusion. Awake, Alert, Oriented to person and place, not time. Aphasia noted. Left upper extremity and left lower extremity weakness noted
Psych: Calm
Anticipated Discharge: Within 24 hours
Subjective/Interval History
-
Date of Service: September 01, 2023
No acute events overnight. Patient is intermittently confused. No fever, no vomiting.
Objective Data
-
Labs:
Laboratory Results
09/01/23
08:40
WBC 6.6
Hgb 8.8 L
Hct 27.2 L
Plt Count 110 L
Sodium 136
Potassium 3.7
Chloride 111 H
Carbon Dioxide 19 L
BUN 34 H
Creatinine 1.0
Glucose 95
Calcium 8.3 L
Vital Signs:
Vital Signs
Temp Pulse Resp BP Pulse Ox
97.6 F 68 16 102/76 95
09/01/23 11:00 09/01/23 11:00 09/01/23 11:00 09/01/23 11:09/01/23 08:12
I&O
08/31/23 09/01/23 09/02/23
06:59 06:59 06:59
Intake Total 600 / 600 520 / 520
Output Total 550 / 550
Balance 50 / 50 520 / 520
[2023-09-02 08:18] LABS: Hematocrit 26.7 % (39.0-52.0); Hemoglobin 8.6 g/dL (13.0-18.0); Mean Corp Hgb Conc. 32.2 g/dL (33.0-37.0); Mean Corpuscular Hgb 26.8 pg (27.0-31.0); Mean Corpuscular Volume 83.2 fL (80.0-94.0); Mean Platelet Volume 9.9 fL (7.4-10.4); Platelet Count 113 10^3/uL (130-400); Red Blood Cell Count 3.21 10^6/uL (4.70-6.10); Red Cell Dist. Width 19.9 % (11.5-14.5); White Blood Cell Count 8.1 10^3/uL (4.8-10.8)
[2023-09-02] MEDS: SPIRIVA RESPIMAT 2.5 MCG 2 PUFF INH (08:23)
[2023-09-02] MEDS: SYMBICORT 80/4.5 MCG INHALER 2 PUFF INH ×2 (08:23→20:10)
[2023-09-02] MEDS: ASPIR LOW (ENTERIC COATED) 81 MG PO (08:54)
[2023-09-02] MEDS: PROSCAR 5 MG PO (08:54)
[2023-09-02] MEDS: ELIQUIS 5 MG PO ×2 (08:54→19:42)
[2023-09-02] MEDS: LASIX PO (08:55)
[2023-09-02] MEDS: ENTRESTO 24 MG/26 MG PO (08:55)
[2023-09-02 08:58] LABS: Blood Urea Nitrogen 34 mg/dl (9-20); Calcium 8.5 mg/dl (8.4-10.2); Carbon Dioxide 18 mmol/L (22-30); Chloride 110 mmol/L (98-107); Estimated Creatinine Clearance 50 ml/min; Glucose 99 mg/dl (70-99); Iron 33 ug/dl (49-181); Potassium 3.9 mmol/L (3.5-5.1); Sodium 137 mmol/L (135-145); eGFR > 60.00
[2023-09-02 09:07] LABS: Percent Saturation 15 % (20-50); Total Iron Binding Capacity 211 ug/dl (261-462)
[2023-09-02 11:10] VITALS: BP 112/56
[2023-09-02 11:45] VITALS: BP 102/55; PULSE 73; O2SAT 96
--- NOTE | 2023-09-02 14:01 | PTOTSP ---
Speech Therapy
PORTRAIT PAINTER attempted to assess patient's communicative deficits with the use of the Quick Aphasia Battery in which patient's lethargy appeared to be a large barrier to completion. The patient scored the following: level of consciousness: 15/32, sentence
comprehension: , repetition: 10/03, motor speech: 2/6 tasks completed, and connected speech consisted of dysarthria, expressive aphasia, short (2 word utterances max), and inability to follow conversation (tangential at times).
Continuation of the assessment was stopped due to patient's poor alertness despite PORTRAIT PAINTER's attempt to redirect/ arouse patient. Given the above, expressive aphasia and dysarthria are likely barriers to communication.
PORTRAIT PAINTER will continue to follow; pending hospitalization.
[2023-09-02 15:30] VITALS: BP 94/44
[2023-09-02 19:40] VITALS: BP 116/61
[2023-09-02] MEDS: ENTRESTO 24 MG/26 MG 1 TAB PO (19:42)
[2023-09-02] MEDS: PROTONIX 40 MG PO (21:21)
[2023-09-02] MEDS: LIPITOR 40 MG PO (21:21)
[2023-09-03 03:58] VITALS: BP 110/61; BMI 25.4
[2023-09-03] MEDS: SYNTHROID 50 MCG PO (05:23)
--- NOTE | 2023-09-03 05:49 | W.PN.HOSP.TC ---
Today's Communication/Plan
-
Monitor H&H
Bowel Regimen
Hematology Eval
Assessment / Plan
Assessment / Plan
HPI: 83-year-old male with a past medical history of recent stroke in June 2023 with residual aphasia, permanent atrial fibrillation on Eliquis, CHF, COPD, hypertension, hyperlipidemia, and hypothyroidism presents with a 1 day history of
ambulatory dysfunction, left-sided weakness, and confusion. Patient was admitted at [facility] in June 2023 for stroke, and discharged to short-term rehab. His only residual deficits were aphasia per family. He was released from the
short-term rehab to live with his son and [id number] 4-6 weeks ago. Yesterday, he developed confusion, and was having increased falls due to ambulatory dysfunction. He denies chest pain, shortness of breath, or palpitations. No fever, no
vomiting. Daughter reports that he has not missed any doses of his Eliquis.
#Acute/subacute left CVA
#Left-sided weakness
#Altered mental status
MRI shows few small foci of nonhemorrhagic acute/subacute infarcts in the left cerebral hemisphere
Neurology recommends aspirin 81 mg x 4 weeks through 09/25/23. Eliquis resumed 08/31/2023 per neurology.
Continue statin (LDL 30, A1C 4.9). PT/OT/SPL rec STR.
#History of recent stroke in June 2023 with residual aphasia
#Acute on chronic normocytic anemia
#Anemia of Chronic Disease
Hemoglobin trended down to matthew 8.6, was 9.9 upon admission
B12/folic acid normal, Iron Studies suggestive anemia of chronic disease
Elevated Ferritin
no obvious signs of bleeding
Hgb starting to trend up
Hematology eval requested
#History of hypertension
#Chronic CHF
Blood pressure improved, resumed Lasix and Entresto with hold parameters, continue
#Permanent atrial fibrillation
Continue Eliquis
Rate controlled without any beta-blockers
#Memory impairment concerning for dementia
B12, TSH normal.
Follow-up with Dr. Chan outpatient for neuropsychiatric testing.
#BPH
Continue finasteride
#COPD
Stable, continue bronchodilators
#Hypothyroidism
Continue Synthroid
#Gastroesophageal reflux disease
Continue PPI
#Constipation
unclear when patient's last bowel movement was
none documented during current hospital stay
Laxatives started
DVT prophylaxis�eliquis
Full code
discussed with patient and his grandson at bedside, son Agustin over phone
Total time spent to see the patient on the floor, examine the patient, review data and lab results, discuss treatment plan with patient, nursing staff around 50 minutes.
Physical Exam
General: No Apparent Distress
HEENT: NormoCephalic, Anicteric and Moist mucous membranes
Cardiac: S1/S2 and Irregular Rhythm
GI: Soft, Non Tender, Non Distended and Normal Bowel Sounds
Musculoskeletal: No Clubbing, No Cyanosis, Edema, Left Lower Extremity and Edema, Right Lower Extremity
Skin: Warm and Dry
Neuro: Waxing waning confusion. Awake, Alert, Oriented to person and place, not time. Aphasia noted. Left upper extremity and left lower extremity weakness noted
Psych: Calm
Anticipated Discharge: 24 - 48 hours
Subjective/Interval History
-
Date of Service: September 03, 2023
No acute distress resting comfortably in bed. Grandson present during evaluation. Denies any new acute issues at this time. Unclear as to when patient last had bowel movement. None noted during hospitalization. Patient otherwise reports feeling
well. Denies nausea vomiting abd pain.
Objective Data
-
Vital Signs:
Vital Signs
Temp Pulse Resp BP Pulse Ox
97.6 F 76 20 110/61 94
09/03/23 03:58 09/03/23 03:58 09/03/23 03:58 09/03/23 03:58 09/03/23 03:58
I&O
09/01/23 09/02/2309/02/24
06:59 06:59 06:59
Intake Total 520 / 520 240 / 240
Output Total 600 / 600 150 / 150
Balance 520 / 520 -360 / -360 -150 / -150
[2023-09-03 07:00] VITALS: BP 115/79
[2023-09-03] MEDS: SPIRIVA RESPIMAT 2.5 MCG 2 PUFF INH (08:00)
[2023-09-03] MEDS: SYMBICORT 80/4.5 MCG INHALER 2 PUFF INH ×2 (08:01→19:47)
[2023-09-03] MEDS: ENTRESTO 24 MG/26 MG 1 TAB PO ×2 (08:07→21:16)
[2023-09-03] MEDS: ELIQUIS 5 MG PO ×2 (08:08→21:16)
[2023-09-03] MEDS: ASPIR LOW (ENTERIC COATED) 81 MG PO (08:08)
[2023-09-03] MEDS: LASIX 40 MG PO (08:08)
[2023-09-03] MEDS: PROSCAR 5 MG PO (08:09)
--- NOTE | 2023-09-03 12:52 | CM ---
Case management following for d/c planning
Accepted at [facility] for SNF - bed available
Per Dr Fish - not ready today - following anemia
Plan - SNF ([facility]) when medically ready
[2023-09-03 13:22] LABS: Hematocrit 28.8 % (39.0-52.0); Hemoglobin 9.4 g/dL (13.0-18.0); Mean Corp Hgb Conc. 32.6 g/dL (33.0-37.0); Mean Corpuscular Hgb 27.2 pg (27.0-31.0); Mean Corpuscular Volume 83.2 fL (80.0-94.0); Mean Platelet Volume 9.6 fL (7.4-10.4); Platelet Count 110 10^3/uL (130-400); Red Blood Cell Count 3.46 10^6/uL (4.70-6.10); Red Cell Dist. Width 20.1 % (11.5-14.5); White Blood Cell Count 6.5 10^3/uL (4.8-10.8)
[2023-09-03] MEDS: SENOKOT-S 1 TABLET PO ×2 (13:45→21:27)
[2023-09-03 13:49] LABS: Blood Urea Nitrogen 34 mg/dl (9-20); Calcium 8.2 mg/dl (8.4-10.2); Carbon Dioxide 19 mmol/L (22-30); Chloride 110 mmol/L (98-107); Estimated Creatinine Clearance 50 ml/min; Glucose 112 mg/dl (70-99); Potassium 3.9 mmol/L (3.5-5.1); Sodium 138 mmol/L (135-145); eGFR > 60.00
[2023-09-03 15:00] VITALS: BP 96/61
[2023-09-03 17:52] LABS: Transferrin 144 mg/dL (200-360)
[2023-09-03 20:04] VITALS: BP 105/65
[2023-09-03] MEDS: PROTONIX 40 MG PO (21:27)
[2023-09-03] MEDS: LIPITOR 40 MG PO (21:27)
[2023-09-03 23:29] VITALS: BP 100/62
[2023-09-04 03:47] VITALS: BP 117/62
[2023-09-04] MEDS: SYNTHROID 50 MCG PO (05:25)
[2023-09-04] MEDS: TYLENOL 650 MG PO (05:26)
[2023-09-04 06:00] VITALS: BMI 25.9
[2023-09-04 06:56] LABS: Hematocrit 29.2 % (39.0-52.0); Hemoglobin 9.3 g/dL (13.0-18.0); Mean Corp Hgb Conc. 31.8 g/dL (33.0-37.0); Mean Corpuscular Hgb 26.4 pg (27.0-31.0); Mean Platelet Volume 9.7 fL (7.4-10.4); Platelet Count 110 10^3/uL (130-400); Red Blood Cell Count 3.52 10^6/uL (4.70-6.10); Red Cell Dist. Width 19.8 % (11.5-14.5); White Blood Cell Count 6.5 10^3/uL (4.8-10.8)
--- NOTE | 2023-09-04 07:30 | W.PN.HOSP.TC ---
Today's Communication/Plan
-
discharge
Assessment / Plan
Assessment / Plan
HPI: 83-year-old male with a past medical history of recent stroke in June 2023 with residual aphasia, permanent atrial fibrillation on Eliquis, CHF, COPD, hypertension, hyperlipidemia, and hypothyroidism presents with a 1 day history of
ambulatory dysfunction, left-sided weakness, and confusion. Patient was admitted at [facility] in June 2023 for stroke, and discharged to short-term rehab. His only residual deficits were aphasia per family. He was released from the
short-term rehab to live with his son and [id number] 4-6 weeks ago. Yesterday, he developed confusion, and was having increased falls due to ambulatory dysfunction. He denies chest pain, shortness of breath, or palpitations. No fever, no
vomiting. Daughter reports that he has not missed any doses of his Eliquis.
#Acute/subacute left CVA
#Left-sided weakness
#Altered mental status
MRI shows few small foci of nonhemorrhagic acute/subacute infarcts in the left cerebral hemisphere
Neurology recommends aspirin 81 mg x 4 weeks through 09/25/23. Eliquis resumed 08/31/2023 per neurology.
Continue statin (LDL 30, A1C 4.9). PT/OT/SPL rec STR.
#History of recent stroke in June 2023 with residual aphasia
#Acute on chronic normocytic anemia
#Anemia of Chronic Disease
Hemoglobin trended down to matthew 8.6, was 9.9 upon admission
B12/folic acid normal, Iron Studies suggestive anemia of chronic disease
Elevated Ferritin
no obvious signs of bleeding
Hgb trending up stable >9
Outpatient Hematology follow up recommended
#History of hypertension
#Chronic CHF
Blood pressure improved, resumed Lasix and Entresto with hold parameters, continue
#Permanent atrial fibrillation
Continue Eliquis
Rate controlled without any beta-blockers
#Memory impairment concerning for dementia
B12, TSH normal.
Follow-up with Dr. Chan outpatient for neuropsychiatric testing.
#BPH
Continue finasteride
#COPD
Stable, continue bronchodilators
#Hypothyroidism
Continue Synthroid
#Gastroesophageal reflux disease
Continue PPI
#Constipation
resolved with bowel regimen
DVT prophylaxis�eliquis
Full code
Medically stable for discharge SNF rehab with outpatient follow up recommendations.
discussed with patient at bedside and son Agustin over phone
Total Time Preparing Discharge __50 minutes including examination of the patient, summary of the hospital stay, instructions for continuing care to all relevant caregivers; and preparation of discharge records, prescriptions, and referral
forms if necessary.
Physical Exam
General: No Apparent Distress
HEENT: NormoCephalic, Anicteric and Moist mucous membranes
Cardiac: S1/S2 and Irregular Rhythm
GI: Soft, Non Tender, Non Distended and Normal Bowel Sounds
Musculoskeletal: No Clubbing, No Cyanosis, Edema, Left Lower Extremity and Edema, Right Lower Extremity
Skin: Warm and Dry
Neuro: Waxing waning confusion. Awake, Alert, Oriented to person and place, not time. Aphasia noted. Left upper extremity and left lower extremity weakness noted
Psych: Calm
Anticipated Discharge: Today
Subjective/Interval History
-
Date of Service: September 04, 2023
Seen and examined at bedside in no acute distress resting comfortably in bed. Constipation noted resolved. Denies any new acute issues at this time. overall reports feeling well.
Objective Data
-
Labs:
Laboratory Results
09/04/23
06:27
WBC 6.5
Hgb 9.3 L
Hct 29.2 L
Plt Count 110 L
Sodium Pending
Potassium Pending
Chloride Pending
Carbon Dioxide Pending
BUN Pending
Creatinine Pending
Glucose Pending
Calcium Pending
Vital Signs:
Vital Signs
Temp Pulse Resp BP Pulse Ox
98.2 F 73 20 117/62 93
09/04/23 03:47 09/04/23 03:47 09/04/23 03:47 09/04/23 03:47 09/04/23 03:47
I&O
09/03/23 09/04/23 09/05/23
06:59 06:59 06:59
Intake Total 480 / 480 900 / 900
Output Total 150 / 150 650 / 650
Balance 330 / 330 250 / 250
[2023-09-04] MEDS: SPIRIVA RESPIMAT 2.5 MCG 2 PUFF INH (07:40)
[2023-09-04] MEDS: SYMBICORT 80/4.5 MCG INHALER 2 PUFF INH (07:41)
[2023-09-04 07:44] LABS: Blood Urea Nitrogen 31 mg/dl (9-20); Calcium 8.2 mg/dl (8.4-10.2); Carbon Dioxide 20 mmol/L (22-30); Chloride 110 mmol/L (98-107); Estimated Creatinine Clearance 55 ml/min; Glucose 99 mg/dl (70-99); Magnesium 2.1 mg/dl (1.6-2.3); Phosphorus 3.5 mg/dl (2.5-4.5); Potassium 3.7 mmol/L (3.5-5.1); Sodium 138 mmol/L (135-145); eGFR > 60.00
[2023-09-04 08:00] VITALS: BP 91/60
[2023-09-04] MEDS: SENOKOT-S 1 TABLET PO (08:46)
[2023-09-04] MEDS: ELIQUIS 5 MG PO (08:46)
[2023-09-04] MEDS: LASIX 40 MG PO (08:47)
[2023-09-04] MEDS: ENTRESTO 24 MG/26 MG 1 TAB PO (08:47)
[2023-09-04] MEDS: ASPIR LOW (ENTERIC COATED) 81 MG PO (08:47)
[2023-09-04] MEDS: PROSCAR 5 MG PO (08:47)
[2023-09-04] MEDS: MIRALAX 17 GRAMS PO (08:47)
--- NOTE | 2023-09-04 11:21 | CM ---
Addendum entered by Salima Garrett 09/04/23 12:35:
Transport at 3PM
Facility made aware
LM for pts son Tomer - transport time given
Original Note:
Case management following for d/c planning
Pt for d/c today
Spoke with Savannah at [facility] - able to accept today
Spoke with pts richelle Jeff - aware and agrees with plan
Discussed IMM with pts son
Plan - transfer to [facility]
R - [phone]
- [phone]
[2023-09-04 12:00] VITALS: BP 107/89
--- NOTE | 2023-09-04 13:56 | W.DCSUMMARY ---
Discharge Summary
Discharge Data
Date of Admission: 08/29/23
Date of Discharge: 09/04/23
-
Pending Results: No
Discharge Plan
-
Patient Disposition: Prison/SNF
Discharge Diagnosis/Procedures: Acute stroke, left-sided weakness, altered mental status, recent stroke in June with residual aphasia, permanent atrial fibrillation on Eliquis, Anemia of Chronic Disease
Condition: Good
Diet: Low Fat and Low Cholesterol
Additional Diets: small bites/soft diet
Activity: As tolerated
Driving Restrictions: No driving
Bathing Restrictions: None
Blood Work: Please repeat CBC and BMP with a primary care provider in 1 week of discharge
Other Services: PT, OT and ST
Activity Restrictions/Additional Instructions:
You had a stroke. Confusion from a stroke should improve with time.
Neurology recommends taking aspirin 81 mg for 4 weeks through 09/25/23.
However you may also be having confusion from dementia. Confusion from dementia will wax and wane. Please follow-up with Dr. Chan for neuropsychiatric testing for dementia.
Follow up with Hematology also recommended for anemia of chronic disease.
Please follow-up with your primary care doctor 1 week after leaving rehab.
Referrals:
Deuce Dia MD [Active] - in one month
Tashi Rueda MD [Family Provider] - in one week
Nino Chan PSY [Specified Professional Personl] - in two to four weeks
Karie Infante MD [Active] - in two to four weeks
Prescriptions:
New
aspirin 81 mg Tablet,Delayed Release (Dr/Ec)
81 mg PO DAILY Qty: 21 0RF
Rx Instructions:
Through 09/25/23 then stop
Continued
levothyroxine 50 MCG tablet
50 mcg PO DAILY
atorvastatin 40 mg Tablet
40 mg PO HS
Eliquis 5 mg Tablet
5 mg PO BID
Entresto 24-26 mg Tablet
1 tab PO BID
Trelegy Ellipta 100-62.5-25 mcg Blister With Device
1 inh INHALATION R DAILY
pantoprazole 40 mg tablet,delayed release (DR/EC)
40 mg PO HS
acetaminophen [Tylenol] 325 mg Tablet
650 mg PO Q6HPRN PRN (Reason: mild pain)
furosemide 40 mg tablet
40 mg PO DAILY
finasteride 5 MG tablet
5 mg PO DAILY
Discharge Orders:
Discharge Patient (As Directed); Ordered 09/04/23
Ordered By: Suzi Fish
Discharge Date and Time
Print Language: ESTONIAN
== END 2023-09-04 15:00 | DRG 65 ==
LOC: 3 WEST ACU 15:44
PROVIDERS: ADMITTING PHYSICIAN Family Medicine; ATTENDING PHYSICIAN Internal Medicine; CONSULT PHYSICIAN Student in an Organized Health Care Education/Training Program; EMERGENCY PHYSICIAN Emergency Medicine; FAMILY PHYSICIAN Family Medicine
DX: I63.9 Cerebral infarction, unspecified (principal); G81.94 Hemiplegia, unspecified affecting left nondominant side; I48.21 Permanent atrial fibrillation; D63.8 Anemia in other chronic diseases classified elsewhere; R47.01 Aphasia; I11.0 Hypertensive heart disease with heart failure; I50.9 Heart failure, unspecified; I25.10 Atherosclerotic heart disease of native coronary artery without angina pectoris; J44.9 Chronic obstructive pulmonary disease, unspecified; E03.9 Hypothyroidism, unspecified; E78.00 Pure hypercholesterolemia, unspecified; K21.9 Gastro-esophageal reflux disease without esophagitis
CPT/HCPCS: 70450; 70544; 70551; 71046; 73030; 80048; 80053; 80061; 81003; 81015; 82607; 82728; 82746; 83036; 83540; 83550; 83605; 83735; 84100; 84443; 84466; 85025; 85027; 92507; 92610; 93306; 93880; 94640; 96360; 97116; 97163; 97166; 97530; 97535; 99285

== ENCOUNTER → 2023-09-05 12:27 | Outpatient (REF) | payer OTHER, MEDICARE, SELFPAY ==
[2023-09-05 13:25] LABS: % Basophils 0.3 % (0-2); % Eosinophils 0.1 % (0-6); % Immature Granulocytes 0.7 % (0-0.5); % Lymphocytes 6.6 % (20.5-51.1); % Monocytes 5.6 % (1.7-9.3); % Neutrophils 86.7 % (42.2-75.2); Absolute Immature Granulocytes 0.1 10^3/uL (0-0.05); Absolute Lymphocytes 0.8 10^3/uL (1.2-3.4); Absolute Monocytes 0.7 10^3/uL (0.1-0.6); Absolute Neutrophils 10.4 10^3/uL (1.4-6.5); Hematocrit 29.8 % (39.0-52.0); Hemoglobin 9.4 g/dL (13.0-18.0); Mean Corp Hgb Conc. 31.5 g/dL (33.0-37.0); Mean Corpuscular Hgb 27.3 pg (27.0-31.0); Mean Corpuscular Volume 86.6 fL (80.0-94.0); Mean Platelet Volume 10.4 fL (7.4-10.4); Nucleated Red Blood Cells % 0 % (-); Platelet Count 110 10^3/uL (130-400); Red Blood Cell Count 3.44 10^6/uL (4.70-6.10); Red Cell Dist. Width 19.7 % (11.5-14.5)
[2023-09-05 14:19] LABS: Blood Urea Nitrogen 37 mg/dl (9-20); Calcium 8.2 mg/dl (8.4-10.2); Carbon Dioxide 20 mmol/L (22-30); Chloride 110 mmol/L (98-107); Glucose 115 mg/dl (70-99); Sodium 137 mmol/L (135-145); eGFR 59.63
== END ==
LOC: OLABP 12:27
PROVIDERS: ATTENDING PHYSICIAN Family Medicine
DX: I63.9 Cerebral infarction, unspecified (principal); I50.9 Heart failure, unspecified; J44.9 Chronic obstructive pulmonary disease, unspecified; I25.10 Atherosclerotic heart disease of native coronary artery without angina pectoris; I48.21 Permanent atrial fibrillation; I11.0 Hypertensive heart disease with heart failure
CPT/HCPCS: 36415; 80048; 85025

== ENCOUNTER 2023-09-06 18:23 | Inpatient (IN) | payer MEDICARE, SELFPAY ==
[2023-09-06] VITALS (14 sets, daily range): BP systolic 84–148; BP diastolic 37–133; BMI 28.5; BMI 26.9
[2023-09-06 11:11] LABS: % Basophils 0.3 % (0-2); % Eosinophils 0.1 % (0-6); % Immature Granulocytes 0.7 % (0-0.5); % Lymphocytes 7.4 % (20.5-51.1); % Monocytes 4.4 % (1.7-9.3); % Neutrophils 87.1 % (42.2-75.2); Absolute Immature Granulocytes 0.1 10^3/uL (0-0.05); Absolute Lymphocytes 0.7 10^3/uL (1.2-3.4); Absolute Monocytes 0.4 10^3/uL (0.1-0.6); Absolute Neutrophils 8.7 10^3/uL (1.4-6.5); Hematocrit 30.1 % (39.0-52.0); Hemoglobin 9.2 g/dL (13.0-18.0); Mean Corp Hgb Conc. 30.6 g/dL (33.0-37.0); Mean Corpuscular Hgb 26.3 pg (27.0-31.0); Mean Platelet Volume 9.8 fL (7.4-10.4); Nucleated Red Blood Cells % 0 % (-); Platelet Count 109 10^3/uL (130-400); Red Cell Dist. Width 19.8 % (11.5-14.5); White Blood Cell Count 9.9 10^3/uL (4.8-10.8)
[2023-09-06 11:26] LABS: ALT (SGPT) 17 U/L (0-50); AST (SGOT) 27 U/L (17-59); Alkaline Phosphatase 61 U/L (38-126); Blood Urea Nitrogen 49 mg/dl (9-20); Carbon Dioxide 19 mmol/L (22-30); Chloride 110 mmol/L (98-107); Estimated Creatinine Clearance 31 ml/min; Glucose 149 mg/dl (70-99); Sodium 136 mmol/L (135-145); Total Bilirubin 2.7 mg/dl (0.2-1.3); Total Protein 6.8 g/dl (6.3-8.2); eGFR 39.26
[2023-09-06 11:34] LABS: NT-proBNP 5450 pg/ml
--- NOTE | 2023-09-06 12:03 | ED.GENMED ---
History of Present Illness
<Kelley Garibay PA-C - Last Filed: 09/06/23 17:02>
General
Chief Complaint: Change in Mental Status
Source: patient and records
Exam Limitations: none
Time Seen by Provider: 09/06/23 12:02
Nursing documentation reviewed up to this point in time: agreed with
Travel History
Have you had any contact with someone who has COVID-19?: No
Do you have any symptoms of coronavirus? Fever > 100 degrees, chills, cough, shortness of breath, sore throat, loss of taste or smell, muscle aches, or headache?: No
History of Present Illness
History of Present Illness:
This is a 83-year-old male with a past medical history of COPD, A-fib on Eliquis, recent CVA, CHF presenting to the emergency department with concerns of low blood pressure and confusion. Patient was recently discharged from [facility] for
a stroke. Patient was transferred to [facility] rehab facility where staff noticed that his blood pressure was low today, systolically in the 80s. He also noted that he seemed a bit more confused than his baseline, but their main concern was the
blood pressure. Patient himself does not provide much history due to the confusion. I spoke to patient's son on phone who reports that ever since his stroke, patient has been confused, and he reports that 2 days ago when he visited him, he was
very hard to carry on a conversation with. [place] bailey also notes that patient fell last night from sitting onto the floor, unsure if there is a head strike. Patient himself denies any dysuria, abdominal pain, nausea, vomiting, fevers or chills,
shortness of breath.
Past History
<Kelley Garibay PA-C - Last Filed: 09/06/23 17:02>
Past History
ED Past Medical History: Arrthythmia (AFib), CAD, COPD, Hypercholesterolemia, Hypothyroidism and Other (abd aneurysm BPH)
ED Past Surgical History: Bowel resection, Cardiac (coronary stents) and Other (stenting of aorta, hernia repair)
Social History
Tobacco: Former smoker
Alcohol: None
Drug: None
Personal:
Living: with family
Employment: Retired
Family History
Family History: Other; Negative Early CAD
Review of Systems
<Kelley Garibay PA-C - Last Filed: 09/06/23 17:02>
Review of Systems
All Other Systems: ROS reviewed and negative except as documented in HPI and ROS
Phy Exam
<Kelley Garibay PA-C - Last Filed: 09/06/23 17:02>
Physical Exam
Physical Exam:
General: Patient is well appearing and in no acute distress; non-toxic
Skin: Warm and dry, no rashes or lesions
Head: Normocephalic, atraumatic
Eyes: Sclera non-icteric. EOMs intact. PERRLA.
Cardiac: Regular rate, no murmurs
Peripheral Vascular: No lower extremity swelling, 2+ dorsalis pedis pulses bilaterally
Pulm: Normal respiratory effort, no crackles heard on exam
Abdomen: No abdominal tenderness�no tenderness palpation in the right upper quadrant, no guarding, no rebound tenderness, no palpable mass
Neuro: CN II-XII intact, no focal neurologic deficits. Patient oriented to person but not place and time.
Psychiatric: Poor insight and judgement.
Course
<Kelley Garibay PA-C - Last Filed: 09/06/23 17:02>
Orders/Labs/Results
Orders:
Orders
09/06/23 10:45
Electrocardiogram (*1) Urgent
Reason for Study: Other
Other Reason for Exam: Respiratory Distress
Cardiac Monitoring- Treatment ONCE
EKG- Treatment ONCE
IV Insert/Care/Rem.- Treatment PRN
CR Chest - 2 Views Urgent
Comment:
Reason For Exam: respiratory distress
Pulse Ox/cont/shift [RESP] Urgent
Quantity: 1
Special Instructions: continuous pulse ox
09/06/23 10:53
Complete Blood Count/With Diff Urgent
Comprehensive Metabolic Panel Urgent
NT-proBNP Urgent
09/06/23 12:30
CT Head W/o Iv Contrast Urgent
Comment:
Reason For Exam: fall, confusion
09/06/23 12:37
Urinalysis Reflex To Culture Urgent
Date Specimen was Collected: 09/06/23
Time Specimen was Collected: 12:36
Urine Microscopic Reflex Cult Urgent
Urine Culture Urgent
KIAT Source: U
Specimen Description:
Date Specimen was Collected: 09/06/23
Time Specimen was Collected: 12:36
Abnormal Lab Results
09/06/23 09/06/23
10:53 12:37
RBC 3.50 L 10^6/uL
(4.70-6.10)
Hgb 9.2 L g/dL
(13.0-18.0)
Hct 30.1 L %
(39.0-52.0)
MCH 26.3 L pg
(27.0-31.0)
MCHC 30.6 L g/dL
(33.0-37.0)
RDW 19.8 H %
(11.5-14.5)
Plt Count 109 L 10^3/uL
(130-400)
Abs Immat Gran (auto) 0.1 H 10^3/uL
(0-0.05)
Absolute Neuts (auto) 8.7 H 10^3/uL
(1.4-6.5)
Absolute Lymphs (auto) 0.7 L 10^3/uL
(1.2-3.4)
Immature Gran % 0.7 H %
(0-0.5)
Neutrophils % 87.1 H %
(42.2-75.2)
Lymphocytes % 7.4 L %
(20.5-51.1)
Chloride 110 H mmol/L
(98-107)
Carbon Dioxide 19 L mmol/L
(22-30)
BUN 49 H mg/dl
(9-20)
Creatinine 1.7 H mg/dL
(0.7-1.3)
Glucose 149 H mg/dl
(70-99)
Calcium 8.0 L mg/dl
(8.4-10.2)
Total Bilirubin 2.7 H mg/dl
(0.2-1.3)
Albumin 3.0 L g/dl
(3.5-5.0)
Urine Bilirubin 1+ A
(Negative)
Urine Urobilinogen 3+ A
(Neg - 1+)
Leukocyte Esterase Rfl Trace A
(Negative)
Urine Bacteria (Reflex) Moderate A
(Negative)
09/06/23 10:53
09/06/23 10:53
Vital Signs
Initial and Last Documented VS:
Initial Vital Signs
Temp Pulse Resp Pulse Ox
97.7 F 71 18 100
09/06/23 10:48 09/06/23 10:48 09/06/23 10:48 09/06/23 10:48
Last Documented Vital Signs
Temp Pulse Resp BP Pulse Ox
97.7 F 77 20 97/73 96
09/06/23 10:48 09/06/23 15:00 09/06/23 15:00 09/06/23 14:00 09/06/23 11:07
<Chris Stockton MD - Last Filed: 09/06/23 14:08>
Orders/Labs/Results
Orders:
Orders
09/06/23 10:45
Electrocardiogram (*1) Urgent
Reason for Study: Other
Other Reason for Exam: Respiratory Distress
Cardiac Monitoring- Treatment ONCE
EKG- Treatment ONCE
IV Insert/Care/Rem.- Treatment PRN
CR Chest - 2 Views Urgent
Comment:
Reason For Exam: respiratory distress
Pulse Ox/cont/shift [RESP] Urgent
Quantity: 1
Special Instructions: continuous pulse ox
09/06/23 10:53
Complete Blood Count/With Diff Urgent
Comprehensive Metabolic Panel Urgent
NT-proBNP Urgent
09/06/23 12:30
CT Head W/o Iv Contrast Urgent
Comment:
Reason For Exam: fall, confusion
09/06/23 12:37
Urinalysis Reflex To Culture Urgent
Date Specimen was Collected: 09/06/23
Time Specimen was Collected: 12:36
Urine Microscopic Reflex Cult Urgent
Urine Culture Urgent
KAIT Source: U
Specimen Description:
Date Specimen was Collected: 09/06/23
Time Specimen was Collected: 12:36
Abnormal Lab Results
09/06/23 09/06/23
10:53 12:37
RBC 3.50 L 10^6/uL
(4.70-6.10)
Hgb 9.2 L g/dL
(13.0-18.0)
Hct 30.1 L %
(39.0-52.0)
MCH 26.3 L pg
(27.0-31.0)
MCHC 30.6 L g/dL
(33.0-37.0)
RDW 19.8 H %
(11.5-14.5)
Plt Count 109 L 10^3/uL
(130-400)
Abs Immat Gran (auto) 0.1 H 10^3/uL
(0-0.05)
Absolute Neuts (auto) 8.7 H 10^3/uL
(1.4-6.5)
Absolute Lymphs (auto) 0.7 L 10^3/uL
(1.2-3.4)
Immature Gran % 0.7 H %
(0-0.5)
Neutrophils % 87.1 H %
(42.2-75.2)
Lymphocytes % 7.4 L %
(20.5-51.1)
Chloride 110 H mmol/L
(98-107)
Carbon Dioxide 19 L mmol/L
(22-30)
BUN 49 H mg/dl
(9-20)
Creatinine 1.7 H mg/dL
(0.7-1.3)
Glucose 149 H mg/dl
(70-99)
Calcium 8.0 L mg/dl
(8.4-10.2)
Total Bilirubin 2.7 H mg/dl
(0.2-1.3)
Albumin 3.0 L g/dl
(3.5-5.0)
Urine Bilirubin 1+ A
(Negative)
Urine Urobilinogen 3+ A
(Neg - 1+)
Leukocyte Esterase Rfl Trace A
(Negative)
Urine Bacteria (Reflex) Moderate A
(Negative)
09/06/23 10:53
09/06/23 10:53
Vital Signs
Initial and Last Documented VS:
Initial Vital Signs
Temp Pulse Resp Pulse Ox
97.7 F 71 18 100
09/06/23 10:48 09/06/23 10:48 09/06/23 10:48 09/06/23 10:48
Last Documented Vital Signs
Temp Pulse Resp BP Pulse Ox
97.7 F 77 20 97/73 96
09/06/23 10:48 09/06/23 15:00 09/06/23 15:00 09/06/23 14:00 09/06/23 11:07
<Kelley Garibay PA-C - Last Filed: 09/06/23 17:02>
MDM/Problems Addressed
Differential Diagnosis Includes:
Differential diagnosis includes dehydration, CVA deficit, polypharmacy, delirium, dementia, urinary tract infection, pneumonia,
MDM/Problems Addressed:
altered mental status/hypotension
Chronic conditions affecting care:
afib, CAD, CHF, hyperlipedemia, hypertension, CVA, dementia
<Kelley Garibay PA-C - Last Filed: 09/06/23 17:02>
*Critical Care Note
Total Time (30-74mins, 75-104mins- exclusive of procedures): Not Applicable
<LISA Bañuelos Last Filed: 09/06/23 17:02>
Patient Management
Escalation/DeEscalation of care consider admission/obs:
This is a 83-year-old male with a past medical history of COPD, A-fib on Eliquis, recent CVA, CHF presenting to the emergency department with concerns of low blood pressure and confusion. Patient was recently discharged from [facility] for
a stroke. Son reports that this appears to be patient's baseline as after the stroke, he has been very confused. [place] run seemed to be very concerned about his low blood pressure, upon review of previous records, it appears that patient's blood
pressure does run lower at his baseline. On exam, patient is oriented to person but not place or time. He has no focal deficits, his CBC demonstrates a chronic anemia and his CMP shows a OBI as well as a baseline elevated bilirubin. Considering
he was just discharged 2 days ago, we spoke to the hospitalist physician on-call who happened to see him throughout his hospital stay, and he recommends admission and is concerned about overdiuresis and acute encephalopathy. Patient made aware of
plan. Son updated.
ED Attending Note
<Kelley Garibay PA-C - Last Filed: 09/06/23 17:02>
-
Portions of this chart may have been created with voice recognition software.� Occasional wrong word or��sound alike� substitutions may have occurred due to the inherent limitations of voice recognition software.
<Chris Stockton MD - Last Filed: 09/06/23 14:08>
ED Attending Note
Patient seen and examined by attending physician: Yes
I performed the substantive portion of visit, reviewed & personally made and approve the management plan that is documented in note by myself or ANDERS.: Yes
ED Attending Note:
Patient sent for some increased confusion and mental status changes. Recently discharged for CVA. On exam patient is mildly hypotensive. Alert to name only. Warm and dry. Perfusing well. Lungs clear and equal. Heart mildly irregular.
Baseline mental status somewhat difficult not knowing this patient. Suspect this is near his baseline. Mildly prerenal. Will ask the hospitalist to evaluate who know this patient from 2 days ago.
Discharge Plan
Departure
Patient Disposition: Admit
Date of Disposition: 09/06/23
Time of Disposition: 16:42
Admit to: Med/Surg
Admit to doctor: Dr. Fish
Presentation/result/management discussed w/ accepting MD/DO: Hospitalist
Patient with high blood pressure during this ER visit?: No
Condition: Fair
Discharge Problem:
OBI (acute kidney injury), Altered mental status
Prescriptions:
No Action
levothyroxine 50 MCG tablet
50 mcg PO DAILY
atorvastatin 40 mg Tablet
40 mg PO HS
Eliquis 5 mg Tablet
5 mg PO BID
Entresto 24-26 mg Tablet
1 tab PO BID
Trelegy Ellipta 100-62.5-25 mcg Blister With Device
1 inh INHALATION R HS
pantoprazole 40 mg tablet,delayed release (DR/EC)
40 mg PO HS
acetaminophen [Tylenol] 325 mg Tablet
650 mg PO Q4HPRN MDD 3000 mg PRN (Reason: mild pain/fever>100)
furosemide 40 mg tablet
40 mg PO DAILY
aspirin 81 mg Tablet,Delayed Release (Dr/Ec)
81 mg PO DAILY Qty: 21 0RF
melatonin 3 mg Tablet
3 mg PO HS PRN (Reason: cerebral infarction)
magnesium hydroxide [Milk of Magnesia] 400 mg/5 mL Suspension
30 ml PO DAILY PRN (Reason: if no BM x 4 days)
bisacodyl [Dulcolax (bisacodyl)] 10 mg Suppository
10 mg WA DAILY PRN (Reason: if MOM ineffective, give on day 5 of no BM)
Fleet Enema 19-7 gram/118 mL Enema
118 ml WA DAILYPRN PRN (Reason: if dulcolax supp ineffective, on day 6 of no BM)
finasteride 5 MG tablet
5 mg PO DAILY
Referrals:
UNKNOWN,NO INTERVIEW [Family Provider] -
Interventions
Interventions:
*Risk Screen - Suicide Last Done: 09/06/23 10:48
*General Assessment Last Done: 09/06/23 10:48
*Neglect/Abuse Screening Last Done: 09/06/23 10:48
*ED COVID-19 Vaccine History Last Done: 09/06/23 10:48
ED- Pulmonary Assessment Last Done: 09/06/23 10:59
ED- Neurological Assessment Last Done: 09/06/23 10:59
ED Swallowing Screen Last Done: 09/06/23 10:59
Discharge Date and Time
Print Language: ARMENIAN
[2023-09-06 13:18] LABS: Urine Albumin Trace (Neg - Trace); Urine Bilirubin 1+ (Negative); Urine Character Clear (Clear); Urine Color Amber; Urine Glucose Negative (Negative); Urine Ketone Negative (Negative); Urine Leukocyte Trace (Negative); Urine Nitrite Negative (Negative); Urine Occult Blood Negative (Negative); Urine Specific Gravity 1.025 (<1.030); Urine Urobilinogen 3+ (Neg - 1+)
[2023-09-06 13:27] LABS: Urine Mucus Many
[2023-09-06 13:28] LABS: Urine Bacteria Moderate (Negative); Urine Red Blood Cell 0-2 /HPF (0-2); Urine White Cell 0-2 /HPF (0-5)
--- NOTE | 2023-09-06 13:46 | HPS.HSE ---
Family Physician
-
Family Physician: NO INTERVIEW UNKNOWN
Chief Complaint
-
AMS
History of Present Illness
83M COPD, A-fib on Eliquis, recent CVA, HFpEF (recovered EF) presents from [place] d/t concerns low blood pressure confusion fall. Patient was recently discharged from this facility following hospitalization for stroke. Following transfer to [facility]
blood pressure was noted periodically low systolic 80s. Patient also seemed confused, though possible baseline given aphasia. Patient was found sitting on the floor sparking concerns for unwitnessed fall prompting return to ED for evaluation.
Medical History
Past Medical History
Past Medical History: Reports Other (as above)
Past Surgical History: Reports Other (as above)
Social History
Unable to obtain full social history at this time due to: Other (Patient confused)
Family History
Family History: Not pertinent (reviewed)
Allergies / Home Medications
Allergies reflects when Allergies were last updated in [employer].
Home Medications with original date entered in [employer]
Allergy/Medication List:
Allergies
Allergy/AdvReac Type Severity Reaction Status Date / Time
adhesive tape Allergy Unknown Verified 08/29/23 09:49
Iodinated Contrast Media Allergy BURNING Verified 08/29/23 09:49
[IV Dye, Iodine Containing] SENSATION
Home Medications
finasteride 5 mg tablet 5 mg PO DAILY Urinary issue 06/07/20
levothyroxine 50 mcg tablet 50 mcg PO DAILY Thyroid 06/07/20
acetaminophen 325 mg tablet (Tylenol) 650 mg PO Q4HPRN PRN mild pain/fever>100 08/29/23
apixaban 5 mg tablet (Eliquis) 5 mg PO BID Blood Clot Prevention/Tx 08/29/23
atorvastatin 40 mg tablet 40 mg PO HS High Cholesterol 08/29/23
fluticasone fur. 100 mcg-umeclid 62.5 mcg-vilant 25 mcg inhalat.powder (Trelegy Ellipta) 1 inh inhalation R HS Lung/Breathing Issues 08/29/23
furosemide 40 mg tablet 40 mg PO DAILY Fluid Retention/Swelling 08/29/23
pantoprazole 40 mg tablet,delayed release 40 mg PO HS Gastrointestinal Issue 08/29/23
sacubitril 24 mg-valsartan 26 mg tablet (Entresto) 1 tab PO BID Heart Failure 08/29/23
aspirin 81 mg tablet,delayed release 81 mg PO DAILY #21 tabs 09/04/23
bisacodyl 10 mg rectal suppository (Dulcolax (bisacodyl)) 10 mg NE DAILY PRN if MOM ineffective, give on day 5 of no BM 09/06/23
magnesium hydroxide 400 mg/5 mL oral suspension (Milk of Magnesia) 30 ml PO DAILY PRN if no BM x 4 days 09/06/23
melatonin 3 mg tablet 3 mg PO HS PRN cerebral infarction 09/06/23
sodium phosphates 19 gram-7 gram/118 mL enema (Fleet Enema) 118 ml NE DAILYPRN PRN if dulcolax supp ineffective, on day 6 of no BM 09/06/23
Review of Systems
-
Unable to obtain full review of systems at this time due to: Other (patient confused, unable to obtain meaningful ROS)
Physical Exam
Vital Signs
Vital Signs
Temp Pulse Resp BP Pulse Ox
97.7 F 73 13 93/37 96
09/06/23 10:48 09/06/23 11:30 09/06/23 11:30 09/06/23 11:07 09/06/23 11:07
Physical Exam
General: Other (as below)
Laboratory Results
-
09/06/23 10:53
09/06/23 10:53
Laboratory Results
Total Bilirubin 2.7 mg/dl (0.2-1.3) H 09/06/23 10:53
AST 27 U/L (17-59) 09/06/23 10:53
ALT 17 U/L (0-50) 09/06/23 10:53
Alkaline Phosphatase 61 U/L (38-126) 09/06/23 10:53
Troponin I Cancelled 09/06/23 10:45
Impression/Plan
-
Physical Exam
General: No pallor, cyanosis, or jaundice.
HEENT: Throat clear. Normocephalic atraumatic. Possible left side facial droop vs ptosis
NECK: Supple. No JVD Carotid Bruits
RESPIRATORY: Lungs clear to auscultation. No crackles wheezes stridor
CVS: S1, S2 normal. RRR. No murmur, rub or gallop.
ABDOMEN: Soft, non-tender. No distension. BS+/normal.
EXTREMITIES: No peripheral cyanosis or edema.
BRICK BURNER HEAD: Awake Conversant but seems confused Aphasia noted. Left sided weakness
IMPRESSION:
83M COPD, A-fib on Eliquis, recent CVA, HFpEF (recovered EF) [place] d/t concerns low blood pressure confusion fall. Patient was recently discharged from this facility 3 days ago following hospitalization for stroke. Following transfer to
[facility] blood pressure was noted periodically low systolic 80s. Patient also seemed confused, though possible baseline given aphasia. Patient was found sitting on the floor sparking concerns for unwitnessed fall prompting return to ED for
evaluation. CT head noted no acute abn's. Patient was hypotensive 80s since improved 90s without intervention. Afebrile stable respiratory status room air. Labs were notable for OBI Cr 1.7, baseline 1.0-1.1. T bili elevation and BNP elevation
5000s though improved from prior Apr 2023. Weight gain was noted. 85k. Patient was 79.407 kg on discharge 3 days ago. CXR noted mild interstitial edema cardiomegaly.
PLAN:
#Acute Encephalopathy possibly 2/2 acute on Chronic HFpEF cardiorenal syndrome vs overdiuresis dehydration hypotension
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
#hx CVA
Tele admit
Daily weight I/O fluid restriction diet 50 oz
hold Lasix Entresto for now
Cardio eval requested
CT head notes no new acute abn's
Cont home Eliquis ASA
Neuro eval requested
neuro checks NIH
CXR notes new pulmonary nodule
persistent bilirubin elevation
follow up abd US AM
#OBI possibley cardiorenal vs dehydration vs hypotension
monitor off lasix Entresto for now
bladder renal US
Urinalysis not suggestive of UTI though bacteria present
monitor off abx
follow up urine cx
#BPH cont finasteride
#COPD
Stable respiratory status room air
cont home inhalers
#Hypothyroidism
Continue Synthroid
Recent TSH wnl
#Gastroesophageal reflux disease
Continue PPI
dvt ppx Eliquis
gi ppx protonix
meds reconciled and resumed as appropriate
Full Code
discussed with patient's son CORBY Jeff
I spent a total of 80 minutes with the patient or on the floor. More than 50% of this time involved counseling and coordination of care.
[2023-09-06] MEDS: ELIQUIS 5 MG PO (22:45)
[2023-09-06] MEDS: PROTONIX 40 MG PO (22:45)
[2023-09-06] MEDS: LIPITOR 40 MG PO (22:45)
[2023-09-06] MEDS: HALDOL 1 MG IV (23:23)
[2023-09-06] MEDS: FLUSH (NSS) 2 FLUSH IV (23:25)
[2023-09-07] VITALS (8 sets, daily range): BP systolic 99–128; BP diastolic 53–107; PULSE 84; O2SAT 95–100; BMI 26.9; BMI 26.5
--- NOTE | 2023-09-07 02:46 | PTCARENOTE ---
Patient received form ED via stretcher and was pulled to bed by staff. He was drowsy but arousable. Able to follow commands and answer some questions but became more wakeful, agitated and uncooperative. He continued to attempt to climb OOB.
Patient A x 3 to zeus chair. LE weak. Patient restless in the zeus chair and flailing in chair. He sustained a left woodson skin tear. Wound care done. Tray and chair covered with blanket for protection. Haldol as ordered. Patient continued
with confused conversation including some hallucinations. Maintained in Zeus chair for safety.
--- NOTE | 2023-09-07 05:56 | W.PN.UPDATE ---
Update Note
Progress Note Update
Patient noted earlier to be agitated and climbing oob. Brought him out to nursing station in [facility] for safety and Haldol IV x1 given in hopes he could calm down and sleep. Few hours later he began with episodes of tremors of upper and lower
extremities (which was his baseline) but this time they were amplified lasting about 10 seconds. He would state prior to this 'Oh, here we go...' He never loses consciousness or has post-ictal period to suggest this is seizure activity. Almost has
the appearance of him trying to stop the sensation of falling or the feeling of the room spinning and he is trying to stop it. AM labs are pending. Added a stat ABG.
--- NOTE | 2023-09-07 06:04 | W.PN.UPDATE ---
Update Note
Progress Note Update
ABG with critical pO2 56. 4 liter NC added will recheck ABG again at 1000
[2023-09-07 06:12] LABS: Glucose - Point of Care 122 mg/dl (70-99)
[2023-09-07 06:23] LABS: B.E. -5.2 mmol/L; HCO3 17.4 mmol/L (21-28); O2 Saturation % 90.9 % (94-98); PCO2 25 mmHg (35-48); pH 7.45 (7.35-7.45)
--- NOTE | 2023-09-07 06:26 | PTCARENOTE ---
Patient falling asleep intermittently. He is having intermittent episode of body tremors approximately 10seconds long but with awareness. During one episode he stated 'Here we go'. [employer] MANAGER, covering house, to floor and able to witness. ABG
ordered. BS 122. VSS
[2023-09-07 06:34] LABS: PO2 59 mmHg (83-108)
--- NOTE | 2023-09-07 06:59 | W.PN.HOSP.TC ---
Today's Communication/Plan
-
Seroquel HS prn as per psych
resume Lasix, continue hold Entresto as per Cardiology
small bite sized diet
Wean O2 supplementation as tolerated
Assessment / Plan
Assessment / Plan
Physical Exam
General: No pallor, cyanosis, or jaundice.
HEENT: Throat clear. Normocephalic atraumatic. Possible left side facial droop vs ptosis
NECK: Supple. No JVD Carotid Bruits
RESPIRATORY: Lungs clear to auscultation. No crackles wheezes stridor
CVS: S1, S2 normal. RRR. No murmur, rub or gallop.
ABDOMEN: Soft, non-tender. No distension. BS+/normal.
EXTREMITIES: No peripheral cyanosis or edema.
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 Left sided weakness
IMPRESSION:
83M COPD, A-fib on Eliquis, recent CVA, HFpEF (recovered EF) presents from [place] d/t concerns low blood pressure confusion fall. Patient was recently discharged from this facility 3 days ago following hospitalization for stroke. Following transfer to
[facility] blood pressure was noted periodically low systolic 80s. Patient also seemed confused, though possible baseline given aphasia. Patient was found sitting on the floor sparking concerns for unwitnessed fall prompting return to ED for
evaluation. CT head noted no acute abn's. Patient was hypotensive 80s since improved 90s without intervention. Afebrile stable respiratory status room air. Labs were notable for OBI Cr 1.7, baseline 1.0-1.1. T bili elevation and BNP elevation
5000s though improved from prior Apr 2023. Weight gain was noted. 85k. Patient was 79.407 kg on discharge 3 days ago. CXR noted mild interstitial edema cardiomegaly.
PLAN:
#Acute Encephalopathy possibly 2/2 acute on Chronic HFpEF cardiorenal syndrome vs overdiuresis dehydration hypotension OBI
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
#hx CVA
Tele admit
Daily weight I/O fluid restriction diet 50 oz
Cardio eval appreciated cont hold Entresto, resume Lasix
CT head notes no new acute abn's
Cont home Eliquis ASA
Neuro eval appreciated likely Toxic Metabolic Encephalopathy no further brain imaging recommended at this time
Psych eval appreciated prn seroquel HS
Hypoxia/low PaO2 noted on ABG during episode confusion delirium agitation overnight
since improved on nasal cannula 4L
wean O2 supplementation as tolerated
ABG note respiratory alkalosis with compensated Metabolic acidosis
CXR notes new pulmonary nodule, outpt follow up recommended
persistent bilirubin elevation
Abd US notes cholelithiasis with top normal common bile duct/no intrahepatic biliary dilation
Hepatosplenomegaly
#OBI possibly cardiorenal (less likely) vs dehydration/hypotension (more likely)
Initial Cr 1.7 improved to 1.2 without IVF or diuresis
bladder renal US appreciated b/l renal cysts up to 6 cm, incompletely distended bladder, no hydronephrosis abnormal solid or complex renal masses, no renal calculi
Urinalysis not suggestive of UTI though bacteria present
Urine cx no significant growth, no need for abx at this time.
#BPH cont finasteride
#COPD
Stable respiratory status room air
cont home inhalers
#Hypothyroidism
Continue Synthroid
Recent TSH wnl
#Gastroesophageal reflux disease
Continue PPI
dvt ppx Eliquis
gi ppx protonix
Full Code
discussed with patient's son CORBY Jeff
I spent a total of 58 minutes with the patient or on the floor. More than 50% of this time involved counseling and coordination of care.
Anticipated Discharge: 24 - 48 hours
Subjective/Interval History
-
Date of Service: September 07, 2023
Seen and examined at bedside in no acute distress sitting up comfortably in bed. Confusion appears improved from initial presentation in ED. Aphasia remains significant.
Objective Data
-
Labs:
Laboratory Results
09/07/23 09/07/23 09/07/23
06:00 06:11 10:00
WBC Pending
Hgb Pending
Hct Pending
Plt Count Pending
HCO3 17.4 L Pending
Sodium Pending
Potassium Pending
Chloride Pending
Carbon Dioxide Pending
BUN Pending
Creatinine Pending
Glucose Pending
Calcium Pending
Total Bilirubin Pending
AST Pending
ALT Pending
Alkaline Phosphatase Pending
Vital Signs:
Vital Signs
Temp Pulse Resp BP Pulse Ox
98.5 F 96 20 99/63 96
09/07/23 04:44 09/07/23 03:45 09/07/23 03:45 09/07/23 03:45 09/07/23 04:44
I&O
09/05/23 09/06/23 09/07/23
06:59 06:59 06:59
Intake Total 240 / 240
Output Total 100 / 100
Balance 140 / 140
--- NOTE | 2023-09-07 07:34 | PTCARENOTE ---
Patient placed on 4lpm nasal cannula for critical ABG pO2 of 25. AN, covering house, notified. Orders entered.
--- NOTE | 2023-09-07 07:38 | CON.NEURO4 ---
Consultation - Neurology 4
-
CONSULTING PHYSICIAN: Jenae Dia
REFERRING PHYSICIAN: Hospitalist
DICTATED BY: Jenae Dia
DATE/TIME OF REQUEST: 09/06/23
DATE/TIME OF CONSULTATION: 09/07/23
Reason for Consultation: Encephalopathy, history of recent stroke
History of Present Illness:
Patient is an 83 year old man with history of recent ischemic stroke, atrial fibrillation, CAD, HFpEF presenting from snf due to confusion and low blood pressure. He had had a recent hospitalization here for ischemic strokes in the left
MCA territory, had aspirin added to existing Eliquis. He had some hypotension here with lowest blood pressure 86/63 and 84/66 which have since improved, labwork notable for OBI with creatinine elevated to 1.7 from baseline around 1.0. Noted to have
some weight gain compared to discharge with elevated BNP in 5000's.
He had some agitation last night, climbing out of bed, was given one dose of IV Haloperidol, had tremors of the arms and legs a couple of hours later without loss of consciousness. Had ABG drawn showing pH 7.45, pCO2 25 and pO2 low at 59.
Currently patient denies pain or headache, denies dyspnea or chest pain. Has confusion and aphasia.
Past Medical History: Ischemic strokes in June and August of 2023, Atrial fibrillation, CAD, CHF, COPD, emphysema, ILD, HTN, HLD, AAA, BPH, hypothyroidism, PAD, depression, colitis
Surgical History: Right popliteal artery bypass, cardiac stents, EVAR, hernia repair x5, brachial artery injury repair, colectomy, right hand trigger finger repair
Family History: Reviewed and noncontributory.
Social History: Lives with son who is supportive, former smoker. No alcohol or illicit drug use.
Review of Symptoms:
Patient denies any fever, headache, chest pain, shortness of breath, GI or symptoms.
Physical Exam:
Elderly man no acute distress, no trauma to head or neck, dry mucous membranes, neck no masses, eyes clear, heart rate irregular, no wheezing or rhales, abdomen soft non tender, no edema or rash of lower extremities
Neurologic Examination:
Mental Status: Patient is awake and alert, oriented to person, , son's name, understands in hospital, little recall to recent events, inattentive, difficulty with multi step commands and complex tasks, obeys simple commands consistently, some
word finding difficulty with mixed aphasia
Cranial Nerves: Dysarthria present, no ptosis seen, resting gaze midline, EOM are normal, visual dubose intact to visual threat in all quadrants, smile symmetric
Motor: Normal bulk and tone, no abnormal movements or tremor seen, mild left leg weaknesss 4/5, shoulder abduction arm flexion 5/5 bilaterally
Sensory: Intact light touch and noxious sitmulation
Reflexes: Diminished throughout
Coordination: Normal spontaneous movements and finger to nose of arms bilaterally
Gait: Unable to assess
Neuro Imaging: CT head non contrast with no acute infarct or hemorrhage, no masses
Previous brain MRI from August 29 with left sided small ischemic strokes
Impressions
1. Most likely metabolic encephalopathy due to OBI, hypoxia on top of a recent ischemic stroke.
2. Recent ischemic stroke in left MCA territory despite Apixaban use. Some residual aphasia and dyarthria. Atheroembolic versus cardioembolic cause. Aspirin for 4 weeks recommended by myself last admission for this
3.
4.
Patient has the following risk factors for their symptoms: OBI, elderly age, history of recent stroke, hypoxia
Recommendations:
1. Would use IM Olanzapine instead of Haloperidol if having further agitation
2. Workup OBI and hypoxia
3. Agree with the reduced dosing of Apixaban given OBI
4. Continue with aspirin 81 mg daily, end date of aspirin 09/25
5. Minimize sedating medications as able
6. Not recommending further brain imaging
7. Try to keep sleep wake cycles, avoid naps during day, melatonin at night, minimize nighttime interruptions and invasive lines
Will follow as needed call with questions and concerns
[2023-09-07 08:20] LABS: Hematocrit 28.8 % (39.0-52.0); Hemoglobin 9.1 g/dL (13.0-18.0); Mean Corp Hgb Conc. 31.6 g/dL (33.0-37.0); Mean Corpuscular Hgb 26.5 pg (27.0-31.0); Mean Corpuscular Volume 83.7 fL (80.0-94.0); Mean Platelet Volume 8.9 fL (7.4-10.4); Platelet Count 111 10^3/uL (130-400); Red Blood Cell Count 3.44 10^6/uL (4.70-6.10); Red Cell Dist. Width 19.7 % (11.5-14.5); White Blood Cell Count 10.7 10^3/uL (4.8-10.8)
[2023-09-07] MEDS: SPIRIVA RESPIMAT 2.5 MCG INH (08:39)
[2023-09-07] MEDS: SYMBICORT 80/4.5 MCG INHALER INH (08:39)
[2023-09-07 08:58] LABS: ALT (SGPT) 21 U/L (0-50); AST (SGOT) 31 U/L (17-59); Alkaline Phosphatase 80 U/L (38-126); Blood Urea Nitrogen 47 mg/dl (9-20); Calcium 8.3 mg/dl (8.4-10.2); Carbon Dioxide 18 mmol/L (22-30); Chloride 113 mmol/L (98-107); Estimated Creatinine Clearance 44 ml/min; Glucose 100 mg/dl (70-99); Sodium 138 mmol/L (135-145); Total Bilirubin 3.1 mg/dl (0.2-1.3); Total Protein 6.7 g/dl (6.3-8.2); eGFR 59.63
[2023-09-07] MEDS: ASPIR LOW (ENTERIC COATED) 81 MG PO (09:06)
[2023-09-07] MEDS: PROSCAR 5 MG PO (09:06)
[2023-09-07] MEDS: ELIQUIS 2.5 MG PO (09:06)
--- NOTE | 2023-09-07 09:14 | CON.CAR ---
Addendum entered and electronically signed by Max Barcenas MD 09/07/23 11:18:
Patient seen and examined in collaboration with PLANNING ASSISTANT; agree with below.
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
-Cardiology was consulted for OBI, as patient is on Entresto and diuretic at home; Entresto was held upon admission.
-Would not resume Entresto, given OBI; creatinine improved from 1.7-1.2 today.
-Continue current home dose of Lasix 40 mg daily.
-Recommend Eliquis 5 mg twice daily.
-No further cardiac recommendations at this time; Cardiology will remain available on an as-needed basis.
-Outpatient follow-up with Cardiology.
Original Note:
Consultation
Consultation Request
Date/Time Consultation Requested: 09/06/23 6p
Date/Time Consultation Performed: 09/07/23 9a
Requesting Provider: Dr. Fish
Performing Provider: AN Song for Dr. Barcenas
Reason for Consultation: HFmrEF
Medical History
-
Chief Complaint: change in mental status
History of Present Illness:
Mr. Velázquez is an 83 yo male with HFmrEF, permanent Afib on Eliquis, CAD PCI RCA 10/2008, PAD (prior bypass RLE, prior EVAR, left brachial artery repair), ischemic CVA 06/2023 and 08/2023, HLD, HTN, depression and COPD, who presents with change in
mental status. He is admitted to the hospitalist service and we are consulted for HFmrEF. ProBNP 5450, CXR with mild CHF. He is disoriented and unable to provide any history/information/ROS. Lasix and Entresto held due to hypotension and OBI on
admit.
Past Medical History
Past Medical History: Other (as above)
Past Surgical History: Other (as above)
Social History
Tobacco: Former Smoker
Alcohol: None
Personal:
Family History
Family History: Reviewed & Not Pertinent
Allergies / Home Medications
Allergy/AdvReac Type Severity Reaction Status Date / Time
adhesive tape Allergy Unknown Verified 08/29/23 09:49
Iodinated Contrast Media Allergy BURNING Verified 08/29/23 09:49
[IV Dye, Iodine Containing] SENSATION
�Medication �Instructions �Recorded �Confirmed �Type
finasteride 5 mg tablet 5 mg PO DAILY Urinary issue 06/07/20 09/06/23 History
levothyroxine 50 mcg tablet 50 mcg PO DAILY Thyroid 06/07/20 09/06/23 History
acetaminophen 325 mg tablet 650 mg PO Q4HPRN PRN mild 08/29/23 09/06/23 History
(Tylenol) pain/fever>100
apixaban 5 mg tablet (Eliquis) 5 mg PO BID Blood Clot 08/29/23 09/06/23 History
Prevention/Tx
atorvastatin 40 mg tablet 40 mg PO HS High Cholesterol 08/29/23 09/06/23 History
fluticasone fur. 100 mcg-umeclid 1 inh inhalation R HS 08/29/23 09/06/23 History
62.5 mcg-vilant 25 mcg Lung/Breathing Issues
inhalat.powder (Trelegy Ellipta)
furosemide 40 mg tablet 40 mg PO DAILY Fluid 08/29/23 09/06/23 History
Retention/Swelling
pantoprazole 40 mg tablet,delayed 40 mg PO HS Gastrointestinal Issue 08/29/23 09/06/23 History
release
sacubitril 24 mg-valsartan 26 mg 1 tab PO BID Heart Failure 08/29/23 09/06/23 History
tablet (Entresto)
aspirin 81 mg tablet,delayed 81 mg PO DAILY #21 tabs 09/04/23 09/06/23 Rx
release
bisacodyl 10 mg rectal suppository 10 mg UT DAILY PRN if MOM 09/06/23 09/06/23 History
(Dulcolax (bisacodyl)) ineffective, give on day 5 of no BM
magnesium hydroxide 400 mg/5 mL 30 ml PO DAILY PRN if no BM x 4 09/06/23 09/06/23 History
oral suspension (Milk of Magnesia) days
melatonin 3 mg tablet 3 mg PO HS PRN cerebral infarction 09/06/23 09/06/23 History
sodium phosphates 19 gram-7 118 ml UT DAILYPRN PRN if dulcolax 09/06/23 09/06/23 History
gram/118 mL enema (Fleet Enema) supp ineffective, on day 6 of no BM
Review of Systems
-
Unable to obtain full review of systems at this time due to: Other (acute encephalopathy, aphasia, disoriented)
Physical Exam
Vital Signs
Temp Pulse Resp BP Pulse Ox
98.5 F 83 16 111/53 100
09/07/23 07:50 09/07/23 07:50 09/07/23 07:50 09/07/23 07:50 09/07/23 07:50
Lab Results
09/07/23 07:59
09/07/23 07:59
Troponin I Cancelled 09/06/23 10:45
Fel-W-Wmjkmrxbqzi Pept 5450 pg/ml 09/06/23 10:53
Physical Exam
General: Well Developed and Well Nourished
HEENT: Normocephalic and Moist Mucous Membranes
Respiratory: Clear (diminished b/l bases) and Non Labored Respirations
Cardiac: S1/S2, Irregular Rhythm and Peripheral Edema (trace b/l LE)
Breast: Deferred by me
GI: Soft, Non Tender and Normal Bowel Sounds
Rectal: Deferred by Provider
Musculoskeletal: No Clubbing and No Cyanosis
Skin: Warm and Dry
Neuro: Awake, Alert and Other (confused, aphasic, disoriented)
Psych: Calm
Impression / Plan
-
HFmrEF/CM - acute on chronic, mild on CXR.
- proBNP 5450, CXR with mild CHF.
- he is unable to provide history or ROS.
- Entresto and Lasix held on admit due to OBI and hypotension, now creatinine is 1.2.
- EF 45% on echo.
- resume Lasix 40mg PO daily and monitor renal function.
- stay off Entresto for now.
- follow daily weights.
- GDMT limited by bradycardia on Atenolol previously, baseline hypotension and intermittent OBI.
Afib - permanent.
- rate controlled.
- Eliquis 5mg BID prior to admit then reduced to 2.5mg BID due to OBI (creat 1.7), now OBI resolved with creat 1.2 today.
- resume Eliquis 5mg BID.
CVA - recent hospitalizations 06/2023 and 08/29/23 here for ischemic strokes in the left MCA territory.
- aspirin added to existing Eliquis, continue.
- neurology following.
CAD - stable.
- PCI to RCA 10/2008.
- continue ASA, Lipitor
PAD - stable.
- prior bypass RLE, prior EVAR, left brachial artery repair.
PHTN - PASP 53 mmHg on echo 08/29/23.
-mild MR, mild/mod TR
COPD - chronic.
- pO2 was 59 this am, on oxygen.
- Trelegy.
OBI - resolved, now creatinine 1.2.
- monitor.
Data Reviewed
-
EKG: Tracing Personally Visualized and interpreted (Afib with PVCs, 80 bpm, NS T wave abn, no change from prior)
CT Scan: Report Reviewed by me (head: There is no acute infarct, hemorrhage or extra-axial fluid collection.)
MRI: Report Reviewed by me (brain 08/30/23: There are a few small foci of non hemorrhagic acute/subacute infarcts in the left cerebral hemisphere as described)
Medical Tests (Nuc Med, Echo etc): Report Reviewed by me (echo 08/29/23: EF 45-50%, mild diffuse global HK, dilated RV with mildly reduced function, mild MR, mild/mod TR, PASP 53mmHg)
Labs: Labs Reviewed by me
Old Records: Reviewed
[2023-09-07] MEDS: SYNTHROID PO (10:24)
[2023-09-07 10:27] LABS: HCO3 17.3 mmol/L (21-28); O2 Saturation % 99.6 % (94-98); PCO2 26 mmHg (35-48); PO2 116 mmHg (83-108); pH 7.43 (7.35-7.45)
--- NOTE | 2023-09-07 11:07 | CM ---
CM following re: discharge planning.
Reviewed pt's chart, met with pt, left a message to pt's daughter Richa and spoke to daughter Kelsi.
Pt is an 83 year old male, admitted with primary dx of HF.
Pt is not a great historian, information obtained from daughter Kelsi. Per daughter pt is admitted to from [facility] where he was since Sunday09/03/23. Per daughter, family is holding a bed at [facility] and they requested pt returns back to
[facility] when medically stable.
Per daughter, pt lives in a apartment/in-law suite within his son's home. There are 14 steps to pts apartment, home is multi-story
Pt is confused at baseline, performs ADL with assist and cues, ambulates with rolling walker, has shower chair. Pt has been to [facility] and [facility] in past. Known to [facility] in past
PCP - Tashi Rueda
Pharm - MICHAEL Khan
D/C plan: return back to [facility] when medically stable.
CM will follow with discharge plan updates as hospitalization progresses.
--- NOTE | 2023-09-07 12:18 | CON.MD ---
Consultation - Medical
-
patient seen chart reviewed. discussed w nursing. the aptient is an 83 year old male brought to [facility] confusion. he was recently dc from after rx for mca stroke. he had been sent to [employer] [facility] for rehab. the patient's bp noted to be low and he
was also seen to be confused which has not abated. he was seen by neuro who dx tme and made recommendations for his rx. the patient was sitting up in chair. he was pleasant although he was very confused. when i asked him the year he told me
. i wrote it out for him after asking him several times thinking perhaps he was hearing me wrong but he clearly could not answer. there was a sheet at the bedside with simple px of eg gloves chair etc. he could name none of the objects i
pointed to. nursing reports he ate a good breakfast. he did have a very difficult night however with ongoing agitation not ameliorated by haldol. patient's son reports he has been confused since the stroke. there is also notation in the record
that he fell at [facility].noted to be anoxic on several abg's nursing reports oxygenation has improved this am.
past psych hx there is a notation in the chart that there is hx of depression . there are no meds for depression or anxiety in current regimen
past med hx see above. cva in mca territory. hx pvd aaa cad w stents hld htn emphysema (former smoker( anemia chf a fib colitis ecg w normal qtc bp 11/53 pulse 83 labs w hgb 9.1 bun 47 cr 1.7 on admit now 1.2 b12 folate tsh done in
august were nl
fh non contributory
substance abuse not known but presumably not an issue at ma
social resides w son who is supportive
mse patient profoundly confused. i could not engage him in any coherent discussion. sometimes he would say a word which i often could not understand. when i understood the word did not seem relevant
dx tme secondary to medical illness
plan given his agitation during the night and non response to haldol would try seroquel 25 mg prn insomia agitation. would try to avoid im medications if possible given they are painful. zyprexa is also very anticholinergic and could contribute to
confusion. psych will follow
--- NOTE | 2023-09-07 12:26 | PTOTSP ---
SPEECH THERAPY SWALLOW EVALUATION:
Patient exhibits clinical signs of oropharyngeal dysphagia, likely [id number] related to recent CVA and exacerbated by acute encephalopathy. Patient is at high risk for aspiration and related complications given significant impulsivity and
confusion. Recommend IDDSI Level 6 Soft and Bite Sized Diet, thin liquids. Medications whole in puree. Strict aspiration precautions includin% supervision/assistance with meals; Ensure patient swallows prior to next bite; upright positioning;
tactile cues for small single sips/bites as needed (remove cup/pinch straw as needed); Alternate textures; no talking while eating; Remain upright 30 minutes after eating/drinking; Oral care 3x/day. Speech therapy to follow, assess diet tolerance
and modify as appropriate, monitor CXR and labs, provide education regarding aspiration risks/precautions, and provide continued diagnostic swallow therapy as appropriate. Discussed with RN.
RECOMMEND:
1) IDDSI Level 6 Soft and Bite Sized Diet, thin liquids
2) Medications whole in puree
3) Strict aspiration precautions includin% supervision/assistance with meals; Ensure patient swallows prior to next bite; upright positioning; tactile cues for small single sips/bites as needed (remove cup/pinch straw as needed); Alternate
textures; no talking while eating; Remain upright 30 minutes after eating/drinking; Oral care 3x/day
4) Speech therapy to follow
[2023-09-07] MEDS: LASIX 40 MG PO (13:30)
[2023-09-07] MEDS: SYMBICORT 80/4.5 MCG INHALER 2 PUFF INH (19:25)
[2023-09-07] MEDS: ELIQUIS 5 MG PO (20:07)
[2023-09-07] MEDS: LIPITOR PO ×2 (22:17→22:26)
[2023-09-07] MEDS: MELATONIN PO ×2 (22:17→22:27)
[2023-09-07] MEDS: PROTONIX PO ×2 (22:18→22:24)
[2023-09-08] VITALS (7 sets, daily range): BP systolic 104–126; BP diastolic 46–98
[2023-09-08] MEDS: TYLENOL/FEVERALL 650 MG RECTAL (01:12)
--- NOTE | 2023-09-08 05:40 | W.PN.UPDATE ---
Update Note
Progress Note Update
RN notified DENTAL AIDE, patient had temp of 101.7, ordered Tylenol via rectum, Temp came down to 100.5, otherwise stable VS. Patient denies any pain. will order, Covid, Influenza, blood culture, urine culture, and labs in AM.
[2023-09-08] MEDS: SYNTHROID PO (06:14)
--- NOTE | 2023-09-08 06:38 | W.PN.HOSP.TC ---
Today's Communication/Plan
-
empiric abx ceftriaxone
follow cultures
wean O2 supplementation as tolerated
prn Seroquel HS as per psych
GI eval
Assessment / Plan
Assessment / Plan
Physical Exam
General: No pallor, cyanosis, or jaundice.
HEENT: Throat clear. Normocephalic atraumatic. Possible left side facial droop vs ptosis
NECK: Supple. No JVD Carotid Bruits
RESPIRATORY: Lungs clear to auscultation. No crackles wheezes stridor
CVS: S1, S2 normal. RRR. No murmur, rub or gallop.
ABDOMEN: Soft, non-tender. No distension. BS+/normal.
EXTREMITIES: No peripheral cyanosis or edema.
ORTHOPAEDIC NURSE: Awake Conversant but confused Aphasic. Left sided weakness
IMPRESSION:
83M COPD, A-fib on Eliquis, recent CVA, HFpEF (recovered EF) presents from [place] d/t concerns low blood pressure confusion fall. Patient was recently discharged from this facility 3 days ago following hospitalization for stroke. Following transfer to
[facility] blood pressure was noted periodically low systolic 80s. Patient also seemed confused, though possible baseline given aphasia. Patient was found sitting on the floor sparking concerns for unwitnessed fall prompting return to ED for
evaluation. CT head noted no acute abn's. Patient was hypotensive 80s since improved 90s without intervention. Afebrile stable respiratory status room air. Labs were notable for OBI Cr 1.7, baseline 1.0-1.1. T bili elevation and BNP elevation
5000s though improved from prior Apr 2023. Weight gain was noted. 85k. Patient was 79.407 kg on discharge 3 days ago. CXR noted mild interstitial edema cardiomegaly.
PLAN:
#Acute Encephalopathy possibly 2/2 acute on Chronic HFpEF cardiorenal syndrome vs overdiuresis dehydration hypotension OBI
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
#hx CVA
Tele admit
Daily weight I/O fluid restriction diet 50 oz
Cardio eval appreciated cont hold Entresto, Lasix briefly resumed (held again due to worsening obi as below)
CT head notes no new acute abn's
Cont home Eliquis ASA
Neuro eval appreciated likely Toxic Metabolic Encephalopathy no further brain imaging recommended at this time
Psych eval appreciated prn seroquel HS
Hypoxia/low PaO2 noted on ABG during episode confusion delirium agitation overnight
since improved on nasal cannula 4L
wean O2 supplementation as tolerated
ABG note respiratory alkalosis with compensated Metabolic acidosis
CXR notes new pulmonary nodule, outpt follow up recommended
persistent bilirubin elevation
Abd US notes cholelithiasis with top normal common bile duct/no intrahepatic biliary dilation
Hepatosplenomegaly
Abd exam benign no acute tenderness noted
GI eval requested
Fever noted overnight
COVID Flu Neg
blood cx's pending
Repeat Urinalysis neg for UTI
mild associate Leukocytosis noted in am
empiric Ceftriaxone started
#OBI possibly cardiorenal (less likely) vs dehydration/hypotension (more likely)
Initial Cr 1.7 improved to 1.2 without IVF or diuresis, increased to 1.5 following restart lasix since placed on hold.
bladder renal US appreciated b/l renal cysts up to 6 cm, incompletely distended bladder, no hydronephrosis abnormal solid or complex renal masses, no renal calculi
Urinalysis not suggestive of UTI though bacteria present
Urine cx no significant growth
#BPH cont finasteride
#COPD
Stable respiratory status room air
cont home inhalers
#Hypothyroidism
Continue Synthroid
Recent TSH wnl
#Gastroesophageal reflux disease
Continue PPI
dvt ppx Eliquis
gi ppx protonix
Full Code
discussed with patient's son CORBY Jeff
I spent a total of 58 minutes with the patient or on the floor. More than 50% of this time involved counseling and coordination of care.
Anticipated Discharge: > 48 hours
Subjective/Interval History
-
Date of Service: September 08, 2023
Fever overnight since resolved. Patient remains confused this morning, aphasic. Not agitated.
Objective Data
-
Labs:
Laboratory Results
09/08/23
06:00
WBC Pending
Hgb Pending
Hct Pending
Plt Count Pending
Sodium Pending
Potassium Pending
Chloride Pending
Carbon Dioxide Pending
BUN Pending
Creatinine Pending
Glucose Pending
Calcium Pending
Total Bilirubin Pending
AST Pending
ALT Pending
Alkaline Phosphatase Pending
Vital Signs:
Vital Signs
Temp Pulse Resp BP Pulse Ox
98.8 F 92 20 126/98 99
09/08/23 03:00 09/08/23 03:00 09/08/23 03:00 09/08/23 03:00 09/08/23 03:00
I&O
09/06/23 09/07/23 09/08/23
06:59 06:59 06:59
Intake Total 240 / 240
Output Total 100 / 100
Balance 140 / 140
--- NOTE | 2023-09-08 07:21 | PTCARENOTE ---
late entry 0015 patient temp 101.3 rectal, MANAGING EDITOR Vanessa Aguilar notified, Tylenol 650 mg NV given at 0115, repeat temp at 0215 101.0 rectal, then 100.3 at 0315. Flu A&B, Covid sent. Blood cx's and labs ordered for AM. Attempt to st cath for urine cx,
unsuccessful d/t patient incontinent of urine and unable to get specimen.
[2023-09-08 07:30] LABS: COVID-19 Antigen Negative (Negative)
[2023-09-08] MEDS: SPIRIVA RESPIMAT 2.5 MCG 2 PUFF INH (07:43)
[2023-09-08] MEDS: SYMBICORT 80/4.5 MCG INHALER 2 PUFF INH ×2 (07:43→18:20)
[2023-09-08 08:14] LABS: Hematocrit 25.9 % (39.0-52.0); Hemoglobin 8.2 g/dL (13.0-18.0); Mean Corp Hgb Conc. 31.7 g/dL (33.0-37.0); Mean Corpuscular Hgb 26.5 pg (27.0-31.0); Mean Corpuscular Volume 83.5 fL (80.0-94.0); Mean Platelet Volume 9.1 fL (7.4-10.4); Platelet Count 107 10^3/uL (130-400); Red Cell Dist. Width 19.4 % (11.5-14.5); White Blood Cell Count 12.9 10^3/uL (4.8-10.8)
[2023-09-08] MEDS: ASPIR LOW (ENTERIC COATED) 81 MG PO (08:18)
[2023-09-08] MEDS: PROSCAR 5 MG PO (08:18)
[2023-09-08] MEDS: ELIQUIS 5 MG PO ×2 (08:18→20:22)
[2023-09-08] MEDS: LASIX 40 MG PO (08:18)
[2023-09-08] MEDS: STERILE WATER FOR INJECTION 20 ML IV (08:19)
[2023-09-08] MEDS: ROCEPHIN 2000 MG IV (08:19)
[2023-09-08 08:22] LABS: Ammonia < 9 umol/L (9-30); Lactic Acid 1.3 mmol/L (0.7-2.0)
[2023-09-08 08:36] LABS: ALT (SGPT) 21 U/L (0-50); AST (SGOT) 32 U/L (17-59); Albumin 2.8 g/dl (3.5-5.0); Alkaline Phosphatase 77 U/L (38-126); Blood Urea Nitrogen 55 mg/dl (9-20); Calcium 8.6 mg/dl (8.4-10.2); Carbon Dioxide 16 mmol/L (22-30); Chloride 116 mmol/L (98-107); Estimated Creatinine Clearance 35 ml/min; Glucose 111 mg/dl (70-99); Potassium 4.1 mmol/L (3.5-5.1); Sodium 142 mmol/L (135-145); Total Bilirubin 3.2 mg/dl (0.2-1.3); Total Protein 6.5 g/dl (6.3-8.2); eGFR 45.62
[2023-09-08 08:41] LABS: Direct Bilirubin 1.4 mg/dl (0.0-0.4)
[2023-09-08 10:31] LABS: Urine Albumin Negative (Neg - Trace); Urine Bilirubin 1+ (Negative); Urine Character Clear (Clear); Urine Color Amber; Urine Glucose Negative (Negative); Urine Ketone Negative (Negative); Urine Leukocyte Trace (Negative); Urine Nitrite Negative (Negative); Urine Occult Blood Negative (Negative); Urine Urobilinogen 2+ (Neg - 1+)
[2023-09-08 10:39] LABS: Urine Red Blood Cell 0-2 /HPF (0-2)
[2023-09-08 10:40] LABS: Urine Bacteria Few (Negative)
--- NOTE | 2023-09-08 16:29 | CON.GI ---
Consultation
-
Date/Time Consultation Requested: 09/07/2022, 7:45 am
Date/Time Consultation Performed: 09/07/2022, 4:30pm
Requesting Provider: Dr. Fish
Performing Provider: Dr. Caruso
Reason for Consultation: hyperbilirubinemia and hepatosplenomegaly
Medical History
Chief Complaint / HPI
Chief Complaint: AMS
History of Present Illness:
83 yo M pmh A fib on Eliquis, CVA, HF presenting from [place] with fall and AMS. BP in 80s. Confused on admission not sure baseliine also aphasic. Was discharged 09/03 with a stroke. Neurology has seen patient and likely thinks he has metabolic
encephalopathy due to OBI and hypoxia on top of recent stroke. Psych has seen patient as well - they gave recommendations and also s/w son who states patient has been confused since his CVA. Also was noted to have a temp this AM.
Unable to take history of patient - not responding appropriately.
GI consulted due to concern with elevated bilirubin - 3.1 repeat 3.2, direct bilirubin 1.4. Other LFTs are normal.
Abd US 09/06: Cholelithiasis with top normal common bile duct and no intrahepatic biliary dilatation; hepatosplenomegaly; bilateral renal cysts
Labs with elevated WBC 12.9 today, Hb 8.2 (around baseline), plt 107, no coags checked, Cr 1.5.
Had cscope with [facility] 2009, 2014 with tics and small polyps
Past Medical History
Past Medical History: Arrhythmias (a fib), CAD, CHF, COPD, CVA, HTN, Hypercholesterolemia and Other (AAA, hypothyroid, PAD)
Past Surgical History: Other (R hemicolectomy (assumed has ileocolonic anastomosis on cscope, vascular and cardiac stents, hernia, brachial artery injury repair)
Social History
Tobacco: Former Smoker
Family History
Family History: Unable to Obtain
Allergies / Home Medications
Allergy/AdvReac Type Severity Reaction Status Date / Time
adhesive tape Allergy Unknown Verified 08/29/23 09:49
Iodinated Contrast Media Allergy BURNING Verified 08/29/23 09:49
[IV Dye, Iodine Containing] SENSATION
�Medication �Instructions �Recorded
finasteride 5 mg tablet 5 mg PO DAILY Urinary issue 06/07/20
levothyroxine 50 mcg tablet 50 mcg PO DAILY Thyroid 06/07/20
acetaminophen 325 mg tablet 650 mg PO Q4HPRN PRN mild 08/29/23
(Tylenol) pain/fever>100
apixaban 5 mg tablet (Eliquis) 5 mg PO BID Blood Clot 08/29/23
Prevention/Tx
atorvastatin 40 mg tablet 40 mg PO HS High Cholesterol 08/29/23
fluticasone fur. 100 mcg-umeclid 1 inh inhalation R HS 08/29/23
62.5 mcg-vilant 25 mcg Lung/Breathing Issues
inhalat.powder (Trelegy Ellipta)
furosemide 40 mg tablet 40 mg PO DAILY Fluid 08/29/23
Retention/Swelling
pantoprazole 40 mg tablet,delayed 40 mg PO HS Gastrointestinal Issue 08/29/23
release
sacubitril 24 mg-valsartan 26 mg 1 tab PO BID Heart Failure 08/29/23
tablet (Entresto)
aspirin 81 mg tablet,delayed 81 mg PO DAILY #21 tabs 09/04/23
release
bisacodyl 10 mg rectal suppository 10 mg FL DAILY PRN if MOM 09/06/23
(Dulcolax (bisacodyl)) ineffective, give on day 5 of no BM
magnesium hydroxide 400 mg/5 mL 30 ml PO DAILY PRN if no BM x 4 09/06/23
oral suspension (Milk of Magnesia) days
melatonin 3 mg tablet 3 mg PO HS PRN sleep 09/06/23
sodium phosphates 19 gram-7 118 ml FL DAILYPRN PRN if dulcolax 09/06/23
gram/118 mL enema (Fleet Enema) supp ineffective, on day 6 of no BM
Review of Systems
-
Unable to obtain full review of systems at this time due to: Other (AMS)
Vital Signs
Temp Pulse Resp BP Pulse Ox
98.6 F 78 18 125/52 97
09/08/23 15:00 09/08/23 15:00 09/08/23 15:00 09/08/23 15:00 09/08/23 15:00
Physical Exam
Exam
General: Well Developed
HEENT: Normocephalic
Respiratory: Clear
Cardiac: S1/S2
GI: Non Tender and Non Distended
Musculoskeletal: No Clubbing
Skin: Warm
Neuro: Other (AAOX0)
Psych: Confused
Results
WBC 12.9 10^3/uL (4.8-10.8) H 09/08/23 07:54
Hgb 8.2 g/dL (13.0-18.0) L 09/08/23 07:54
Hct 25.9 % (39.0-52.0) L 09/08/23 07:54
MCV 83.5 fL (80.0-94.0) 09/08/23 07:54
Plt Count 107 10^3/uL (130-400) L 09/08/23 07:54
Absolute Neuts (auto) 8.7 10^3/uL (1.4-6.5) H 09/06/23 10:53
Sodium 142 mmol/L (135-145) 09/08/23 07:54
Potassium 4.1 mmol/L (3.5-5.1) 09/08/23 07:54
Chloride 116 mmol/L (98-107) H 09/08/23 07:54
Carbon Dioxide 16 mmol/L (22-30) L 09/08/23 07:54
BUN 55 mg/dl (9-20) H 09/08/23 07:54
Creatinine 1.5 mg/dL (0.7-1.3) H 09/08/23 07:54
Calcium 8.6 mg/dl (8.4-10.2) 09/08/23 07:54
Total Bilirubin 3.2 mg/dl (0.2-1.3) H 09/08/23 07:54
AST 32 U/L (17-59) 09/08/23 07:54
ALT 21 U/L (0-50) 09/08/23 07:54
Alkaline Phosphatase 77 U/L (38-126) 09/08/23 07:54
Diagnostic Image Results:
Prior GI Procedures:
EGD:
Colonoscopy:
Assessment / Plan
-
83 yo M pmh as above recent CVA p/w AMS today this AM with a fever.
Bili rising, stones on US no lore dil, HSM, low platelets (question of cirrhosis as well).
Recommend MRI/MRCP both to look at bile ducts and get better look at liver - unclear if pt will be able to sit for exam
Seems less likely cholangitis given the fact AST/ALT/AP all normal and no intrahep lore dil on US but with direct/total bili elevation and fever seems prudent to check
Check coags.
D/w hospitalist re: August - if needs procedure may need to hold with recent stroke would prefer to wait for MRI to see if procedure needed
On ceftriaxone - will add flagyl for now
Will add lactulose in case could be underlying cirrhosis
-
-
Thank you for consultation and allowing me to participate in the patient's care. Please call the destination coordinator GI physician during the after hours with any questions or concerns.
--- NOTE | 2023-09-08 16:47 | W.PN.UPDATE ---
Update Note
Progress Note Update
Pt seen at bedside, resting comfortably. Chart reviewed - seems that he had a fever overnight, but this has resolved as of this AM. Although it seems he remains confused, no acute agitation noted since yesterday. Allowed pt to rest, will return to
check on him again.
Continue prn seroquel, psych will follow
[2023-09-08] MEDS: FLAGYL 500 MG 100 IV (18:08)
[2023-09-08] MEDS: DUPHALAC/CHRONULAC PO ×2 (20:22→20:40)
--- NOTE | 2023-09-08 22:14 | PTCARENOTE ---
this RN went in to assess pt and perform NIHSS. pt confused, hallucinating, slurring words, unable to answer any orientation questions. pt uncooperative in following commands. this RN asked pt to make a fist and pt proceeded to put his middle finger
up. pt closing eyes when RN speaking to him and pt not responding to his name, then few seconds later pt fidgeting with gown and oxygen tubing. AN Aguilar notified and came up to assess pt. no new orders at this time. pt remained drowsy throughout
interaction with this RN. pt asleep in bed with bed alarm and medsitter. plan of care continued.
--- NOTE | 2023-09-08 23:00 | PTCARENOTE ---
@2205;Tele monitor alarming; 25 beat run of [place] while pt was asleep.Skin warm and dry.BP= 84/50, HR=80 ,Resp= 16,POX on 3L=93% and rectal temp= 98.9.@2224;Instructed AN Lu on the above note.Manual BP= 84/54.@2238; Dr Fish into see
pt.Instructed Dr Fish verbally that pt was agitated,aphasic, does move extremities in the bed and unable to follow verbal direction to do tonight stroke scale.Dr Fish stated, 'will need to speak to neuro'.IV bolus ordered and administered.Pt appears
comfortable sleeping.
[2023-09-08] MEDS: LIPITOR PO (23:11)
[2023-09-08] MEDS: MELATONIN PO (23:11)
[2023-09-08] MEDS: PROTONIX PO (23:11)
[2023-09-09] VITALS (7 sets, daily range): BP systolic 84–113; BP diastolic 50–62; BMI 26.4
[2023-09-09] MEDS: SYNTHROID 50 MCG PO (06:28)
--- NOTE | 2023-09-09 06:41 | W.PN.HOSP.TC ---
Today's Communication/Plan
-
gentle IV hydration
O2 supplementation prn
Monitor renal function
cont abx, follow cx's
pending MRI/MRCP
cont Eliquis ASA (reduce Eliquis to 2.5 when Cr 1.5 or higher)
Assessment / Plan
Assessment / Plan
Physical Exam
General: No pallor, cyanosis, or jaundice.
HEENT: Throat clear. Normocephalic atraumatic. Possible left side facial droop vs ptosis
NECK: Supple. No JVD Carotid Bruits
RESPIRATORY: Lungs clear to auscultation. No crackles wheezes stridor
CVS: S1, S2 normal. RRR. No murmur, rub or gallop.
ABDOMEN: Soft, non-tender. No distension. BS+/normal.
EXTREMITIES: No peripheral cyanosis or edema.
LONG WINDER TENDER: Awake Conversant but confused Aphasic. Left sided weakness
IMPRESSION:
83M COPD, A-fib on Eliquis, recent CVA, HFpEF (recovered EF) presents from [place] d/t concerns low blood pressure confusion fall. Patient was recently discharged from this facility 3 days ago following hospitalization for stroke. Following transfer to
[facility] blood pressure was noted periodically low systolic 80s. Patient also seemed confused, though possible baseline given aphasia. Patient was found sitting on the floor sparking concerns for unwitnessed fall prompting return to ED for
evaluation. CT head noted no acute abn's. Patient was hypotensive 80s since improved 90s without intervention. Afebrile stable respiratory status room air. Labs were notable for OBI Cr 1.7, baseline 1.0-1.1. T bili elevation and BNP elevation
5000s though improved from prior Apr 2023. Weight gain was noted. 85k. Patient was 79.407 kg on discharge 3 days ago. CXR noted mild interstitial edema cardiomegaly.
PLAN:
#Acute Encephalopathy possibly 2/2 acute on Chronic HFpEF cardiorenal syndrome vs overdiuresis dehydration hypotension OBI
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
#hx CVA
Tele admit
Daily weight I/O fluid restriction diet 50 oz
Cardio eval appreciated cont hold Entresto, Lasix briefly resumed (held again due to worsening obi as below)
CT head notes no new acute abn's
Cont home Eliquis ASA (Eliquis to be reduced to 2.5 when Cr 1.5 or higher)
Neuro eval appreciated likely Toxic Metabolic Encephalopathy no further brain imaging recommended at this time
Psych eval appreciated prn seroquel HS
Speech Eval appreciated
IDDSI lvl 6 soft and bite sized diet, thin liquids
medications whole in puree
Aspiration precautions
PT/OT eval appreciated SNF rehab
COPD
Continue home inhalers
Episode Hypoxia/low PaO2 noted on ABG during episode confusion delirium agitation overnight
since improved on nasal cannula 4L
wean O2 supplementation as tolerated
ABG note respiratory alkalosis with compensated Metabolic acidosis
no wheezing/crackles noted
Oxygen dependence remains persistent
Pulm eval requested
CXR notes new 9 mm nodule right mid to lower lung zone, outpt CT and follow up with Pulm recommended
persistent bilirubin elevation
Abd US notes cholelithiasis with top normal common bile duct/no intrahepatic biliary dilation
Hepatosplenomegaly
Abd exam benign no acute tenderness noted
GI eval appreciated pending MRI/MRCP evaluating for possible cholangitis (less likely d/t normal LFTs) and possible cirrhosis (elevated INR), empiric Lactulose started for possible hepatic encephalopathy
Fever noted overnight
COVID Flu Neg
blood cx's pending
Repeat Urinalysis neg for UTI
mild associate Leukocytosis noted in am
empiric Ceftriaxone started, flaygll added as per GI
Fever White count since resolved
#OBI possibly cardiorenal (less likely) vs dehydration/hypotension (more likely)
bladder renal US appreciated b/l renal cysts up to 6 cm, incompletely distended bladder, no hydronephrosis abnormal solid or complex renal masses, no renal calculi
Initial Cr 1.7 improved to 1.2 without IVF or diuresis, increased to 1.5 following restart lasix since placed on hold. Kidney function improving off Lasix
Patient refusing meals AMS, continued hold lasix pending improvement oral intake, gentle IVF hydration started
Urinalysis not suggestive of UTI though bacteria present
Urine cx no significant growth
#BPH cont finasteride
#Hypothyroidism
Continue Synthroid
Recent TSH wnl
#Gastroesophageal reflux disease
Continue PPI
dvt ppx Eliquis
gi ppx protonix
Full Code
discussed with patient's son CORBY Jeff
I spent a total of 58 minutes with the patient or on the floor. More than 50% of this time involved counseling and coordination of care.
Anticipated Discharge: > 48 hours
Subjective/Interval History
-
Date of Service: September 09, 2023
remains confused aphasic. Occasionally gives coherent appropriate responses to questions. But largely confused, reports he's late for work.
Objective Data
-
Labs:
Laboratory Results
09/09/23
06:02
WBC Pending
Hgb Pending
Hct Pending
Plt Count Pending
PT Pending
INR Pending
Sodium Pending
Potassium Pending
Chloride Pending
Carbon Dioxide Pending
BUN Pending
Creatinine Pending
Glucose Pending
Calcium Pending
Total Bilirubin Pending
AST Pending
ALT Pending
Alkaline Phosphatase Pending
Vital Signs:
Vital Signs
Temp Pulse Resp BP Pulse Ox
98.1 F 86 20 113/59 97
09/09/23 03:00 09/09/23 03:00 09/09/23 03:00 09/09/23 03:00 09/09/23 03:00
I&O
09/07/23 09/08/23 09/09/23
06:59 06:59 06:59
Intake Total 240 / 240 1260 / 1260
Output Total 100 / 100 100 / 100
Balance 140 / 140 1160 / 1160
[2023-09-09 07:25] LABS: INR 2.87
[2023-09-09 07:30] LABS: Hematocrit 26.6 % (39.0-52.0); Hemoglobin 8.2 g/dL (13.0-18.0); Mean Corp Hgb Conc. 30.8 g/dL (33.0-37.0); Mean Corpuscular Hgb 26.4 pg (27.0-31.0); Mean Corpuscular Volume 85.5 fL (80.0-94.0); Mean Platelet Volume 9.5 fL (7.4-10.4); Platelet Count 100 10^3/uL (130-400); Red Blood Cell Count 3.11 10^6/uL (4.70-6.10); Red Cell Dist. Width 19.3 % (11.5-14.5); White Blood Cell Count 10.3 10^3/uL (4.8-10.8)
[2023-09-09] MEDS: SPIRIVA RESPIMAT 2.5 MCG 2 PUFF INH (07:52)
[2023-09-09] MEDS: SYMBICORT 80/4.5 MCG INHALER 2 PUFF INH ×2 (07:53→19:59)
[2023-09-09 08:06] LABS: ALT (SGPT) 20 U/L (0-50); AST (SGOT) 30 U/L (17-59); Albumin 2.8 g/dl (3.5-5.0); Alkaline Phosphatase 77 U/L (38-126); Blood Urea Nitrogen 55 mg/dl (9-20); Calcium 8.5 mg/dl (8.4-10.2); Carbon Dioxide 16 mmol/L (22-30); Chloride 116 mmol/L (98-107); Estimated Creatinine Clearance 41 ml/min; Glucose 95 mg/dl (70-99); Potassium 3.6 mmol/L (3.5-5.1); Sodium 143 mmol/L (135-145); Total Bilirubin 2.2 mg/dl (0.2-1.3); Total Protein 6.4 g/dl (6.3-8.2); eGFR 54.17
[2023-09-09 08:16] LABS: Direct Bilirubin 1.1 mg/dl (0.0-0.4)
--- NOTE | 2023-09-09 09:20 | CM ---
PT indicating patient needs SNF. Will discuss options with patient's family. Patient was recently at [facility].
Plan: Case management will continue to follow and assist with discharge planning. Will discuss SNF options.
[2023-09-09] MEDS: ELIQUIS 2.5 MG PO (09:59)
[2023-09-09] MEDS: STERILE WATER FOR INJECTION 20 ML IV (10:00)
[2023-09-09] MEDS: ROCEPHIN 2000 MG IV (10:05)
[2023-09-09] MEDS: PROSCAR PO (10:22)
[2023-09-09] MEDS: ASPIR LOW (ENTERIC COATED) PO (10:23)
[2023-09-09] MEDS: DUPHALAC/CHRONULAC PO ×2 (10:23→21:55)
--- NOTE | 2023-09-09 11:36 | W.PN.GI.CBS2 ---
Addendum entered and electronically signed by Ashish Caruso MD 09/10/23 07:44:
error last fever 09/07
Original Note:
Today's Communication / Plan
-
pending mri, trend labs, monitor mental status
Assessment / Plan
-
83 yo M pmh as above recent CVA p/w AMS today this AM with a fever.
Bili rising, stones on US no lore dil, HSM, low platelets, elevated INR (question of cirrhosis as well). Bili today improving.
Pending MRI/MRCP both to look at bile ducts and get better look at liver - unclear if pt will be able to sit for exam
Seems less likely cholangitis given the fact AST/ALT/AP all normal and no intrahep lore dil on US but with direct/total bili elevation and fever seems prudent to check
D/w hospitalist re: August - if needs procedure may need to hold with recent stroke would prefer to wait for MRI to see if procedure needed
Continue antibiotics
Continue lactulose, no asterixis appreciated today
Subjective
Subjective
Date of Service: September 09, 2023
More awake still confused
Thinks he is in a car
Denies abd pain
Last fever 09/07 at 00:16 101.3
Objective
Data Reviewed
Laboratory Data:
Laboratory Results
09/09/23 06:02
09/09/23 06:02
Laboratory Results
PT 30.0 Sec (11.4-14.6) H 09/09/23 06:02
INR 2.87 09/09/23 06:02
Total Bilirubin 2.2 mg/dl (0.2-1.3) H 09/09/23 06:02
AST 30 U/L (17-59) 09/09/23 06:02
ALT 20 U/L (0-50) 09/09/23 06:02
Alkaline Phosphatase 77 U/L (38-126) 09/09/23 06:02
Vital Signs and I&O:
Vital Signs
Temp Pulse Resp BP Pulse Ox
98.4 F 85 18 85/62 93
09/09/23 11:00 09/09/23 11:00 09/09/23 11:00 09/09/23 11:00 09/09/23 11:00
I&O
09/08/23 09/09/23 09/10/23
06:59 06:59 06:59
Intake Total 1260 / 1260 60 / 60
Output Total 100 / 100 200 / 200
Balance 1160 / 1160 -140 / -140
Physical Exam
Physical Exam
HEENT: Anicteric
Cardiology: Normal Sinus Rhythm
Pulmonary: Clear
GI: Non Distended and Non Tender
Neuro: Other (aaox1)
[2023-09-09] MEDS: ELIQUIS 5 MG PO (21:11)
[2023-09-09] MEDS: PROTONIX 40 MG PO (21:12)
[2023-09-09] MEDS: MELATONIN 3 MG PO (21:12)
[2023-09-09] MEDS: LIPITOR 40 MG PO (21:12)
--- NOTE | 2023-09-09 22:00 | PTCARENOTE ---
@2030;Pt uncooperative and restless in bed.Attempted to do stroke scale and neuro check with out success.Pt was able to answer only 2 questions until he became agitated and not verbally directable. Pt responded verbally ,' It's august ' to
month/ age.Pt's conversation was confused and became more agitated with the stroke Scale questions.Was able to check both eyes with light.Right and left pupil were size 3 and reacted briskly.No facial drop noted .Pt is able to move arms and legs in
bed but pt uncooperative with stroke scale.Did crush pt's meds in apple sauce.Pt spit them out at staff and stated,' that's awful'.Pt wanted ,'coke a cola.'Crushed meds in small amount of soda and gave to pt in between sips of drinking soda.Then pt
feel asleep and appeared comfortable.
[2023-09-09] MEDS: NSS 250 IV (23:00)
[2023-09-09] MEDS: NSS 1000 IV (23:53)
[2023-09-10] VITALS (8 sets, daily range): BP systolic 92–138; BP diastolic 52–90; PULSE 85; O2SAT 96; BMI 26.9
[2023-09-10 07:31] LABS: Hematocrit 27.6 % (39.0-52.0); Hemoglobin 8.4 g/dL (13.0-18.0); Mean Corp Hgb Conc. 30.4 g/dL (33.0-37.0); Mean Corpuscular Hgb 26.3 pg (27.0-31.0); Mean Corpuscular Volume 86.5 fL (80.0-94.0); Mean Platelet Volume 9.4 fL (7.4-10.4); Platelet Count 94 10^3/uL (130-400); Red Blood Cell Count 3.19 10^6/uL (4.70-6.10); Red Cell Dist. Width 18.9 % (11.5-14.5); White Blood Cell Count 7.2 10^3/uL (4.8-10.8)
[2023-09-10 07:39] LABS: INR 2.63
[2023-09-10] MEDS: ELIQUIS 5 MG PO ×2 (07:52→21:47)
[2023-09-10] MEDS: SYNTHROID 50 MCG PO (07:53)
[2023-09-10] MEDS: PROSCAR 5 MG PO (07:53)
[2023-09-10] MEDS: ASPIR LOW (ENTERIC COATED) 81 MG PO (07:53)
[2023-09-10] MEDS: DESENEX/MITRAZOL/ZEASORB 1 APPLIC TOPICAL ×2 (07:54→21:48)
[2023-09-10] MEDS: DUPHALAC/CHRONULAC PO (07:54)
[2023-09-10] MEDS: STERILE WATER FOR INJECTION 20 ML IV (07:56)
[2023-09-10] MEDS: ROCEPHIN 2000 MG IV (07:56)
[2023-09-10 07:59] LABS: ALT (SGPT) 21 U/L (0-50); AST (SGOT) 27 U/L (17-59); Albumin 2.5 g/dl (3.5-5.0); Alkaline Phosphatase 69 U/L (38-126); Blood Urea Nitrogen 53 mg/dl (9-20); Calcium 8.2 mg/dl (8.4-10.2); Carbon Dioxide 20 mmol/L (22-30); Chloride 119 mmol/L (98-107); Estimated Creatinine Clearance 48 ml/min; Glucose 88 mg/dl (70-99); Potassium 3.7 mmol/L (3.5-5.1); Sodium 146 mmol/L (135-145); Total Bilirubin 1.7 mg/dl (0.2-1.3); Total Protein 6.1 g/dl (6.3-8.2); eGFR > 60.00
[2023-09-10] MEDS: SPIRIVA RESPIMAT 2.5 MCG 2 PUFF INH (08:17)
[2023-09-10] MEDS: SYMBICORT 80/4.5 MCG INHALER 2 PUFF INH ×2 (08:17→20:10)
--- NOTE | 2023-09-10 08:33 | W.PN.HOSP.TC ---
Today's Communication/Plan
-
see bold
Assessment / Plan
Assessment / Plan
IMPRESSION:
83M COPD, A-fib on Eliquis, recent CVA, HFpEF (recovered EF) presents from [place] d/t concerns low blood pressure confusion fall. Patient was recently discharged from this facility 3 days ago following hospitalization for stroke. Following transfer to
[facility] [place] blood pressure was noted periodically low systolic 80s. Patient also seemed confused, though possible baseline given aphasia. Patient was found sitting on the floor sparking concerns for unwitnessed fall prompting return to ED for
evaluation. CT head noted no acute abn's. Patient was hypotensive 80s since improved 90s without intervention. Afebrile stable respiratory status room air. Labs were notable for OBI Cr 1.7, baseline 1.0-1.1. T bili elevation and BNP elevation
5000s though improved from prior Apr 2023. Weight gain was noted. 85k. Patient was 79.407 kg on discharge 3 days ago. CXR noted mild interstitial edema cardiomegaly.
PLAN:
#Acute Encephalopathy possibly 2/2 acute on Chronic HFpEF cardiorenal syndrome vs overdiuresis dehydration hypotension OBI
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
#hx CVA
Daily weight I/O fluid restriction diet 50 oz
Cardio eval appreciated cont hold Entresto, Lasix briefly resumed (held again due to worsening obi as below)
CT head notes no new acute abn's
Cont home Eliquis ASA (Eliquis to be reduced to 2.5 when Cr 1.5 or higher)
Neuro eval appreciated likely Toxic Metabolic Encephalopathy no further brain imaging recommended at this time
Psych eval appreciated prn seroquel HS
From [facility] (was there a few days), lives at home w/ son and DIL
Speech Eval appreciated
IDDSI lvl 6 soft and bite sized diet, thin liquids
medications whole in puree
Aspiration precautions
PT/OT eval appreciated SNF rehab
COPD
Continue home inhalers
Episode Hypoxia/low PaO2 noted on ABG during episode confusion delirium agitation overnight
since improved on nasal cannula 4L
wean O2 supplementation as tolerated
ABG note respiratory alkalosis with compensated Metabolic acidosis
no wheezing/crackles noted
Oxygen dependence remains persistent
Pulm eval requested, pt appears to be breathing through his mouth
CXR notes new 9 mm nodule right mid to lower lung zone, outpt CT and follow up with Pulm recommended
#Persistent bilirubin elevation
Abd US notes cholelithiasis with top normal common bile duct/no intrahepatic biliary dilation
Hepatosplenomegaly
Abd exam benign no acute tenderness noted
GI eval appreciated, pending MRI/MRCP evaluating for possible cholangitis (less likely d/t normal LFTs) and possible cirrhosis (elevated INR), empiric Lactulose started for possible hepatic encephalopathy
Bili downtrending
Fever noted overnight
COVID Flu Neg
blood cx's pending
Repeat Urinalysis neg for UTI
mild associate Leukocytosis noted in am
empiric Ceftriaxone started, flagyl added as per GI
Fever White count since resolved, last fever 09/08/23
#OBI possibly cardiorenal (less likely) vs dehydration/hypotension (more likely)
bladder renal US appreciated b/l renal cysts up to 6 cm, incompletely distended bladder, no hydronephrosis abnormal solid or complex renal masses, no renal calculi
Initial Cr 1.7 improved to 1.2 without IVF or diuresis, increased to 1.5 following restart lasix since placed on hold. Kidney function improving off Lasix
Patient refusing meals AMS, continued hold lasix pending improvement oral intake, gentle IVF hydration started
#Hypernatremia
Change IVFs to 1/2 NS
Urinalysis not suggestive of UTI though bacteria present
Urine cx no significant growth
#BPH cont finasteride
#Hypothyroidism
Continue Synthroid
Recent TSH wnl
#Gastroesophageal reflux disease
Continue PPI
DVT prophylaxis�Eliquis
Total time spent to see the patient on the floor, examine the patient, review data and lab results, discuss treatment plan with patient, nursing staff around 50 minutes.
Physical Exam
General: No pallor, cyanosis, or jaundice.
HEENT: Throat clear. Normocephalic atraumatic. Possible left side facial droop vs ptosis
NECK: Supple. No JVD Carotid Bruits
RESPIRATORY: Lungs clear to auscultation. No crackles wheezes stridor
CVS: S1, S2 normal. RRR. No murmur, rub or gallop.
ABDOMEN: Soft, non-tender. No distension. BS+/normal.
EXTREMITIES: No peripheral cyanosis or edema.
STEWARD/STEWARDESS THIRD CLASS: Awake Conversant but confused Aphasic. Left sided weakness
Anticipated Discharge: > 48 hours
Subjective/Interval History
-
Date of Service: September 10, 2023
Mentation waxing/waning. No fever, no vomiting.
Objective Data
-
Labs:
Laboratory Results
09/10/23
06:55
WBC 7.2
Hgb 8.4 L
Hct 27.6 L
Plt Count 94 L
PT 28.0 H
INR 2.63
Sodium 146 H
Potassium 3.7
Chloride 119 H
Carbon Dioxide 20 L
BUN 53 H
Creatinine 1.1
Glucose 88
Calcium 8.2 L
Total Bilirubin 1.7 H
AST 27
ALT 21
Alkaline Phosphatase 69
Vital Signs:
Vital Signs
Temp Pulse Resp BP Pulse Ox
97.7 F 81 18 108/62 91
09/10/23 07:00 09/10/23 07:00 09/10/23 07:00 09/10/23 07:00 09/10/23 07:00
I&O
09/09/23 09/10/23 09/11/23
06:59 06:59 06:59
Intake Total 1260 / 1260 750 / 750
Output Total 100 / 100 320 / 320
Balance 1160 / 1160 430 / 430
--- NOTE | 2023-09-10 09:25 | WOUNDNOTE ---
Magdiel CRENSHAW (UPPER)
--- NOTE | 2023-09-10 09:26 | WOUNDNOTE ---
L GREAT TOE TIP
--- NOTE | 2023-09-10 09:26 | WOUNDNOTE ---
L FOREARM (UNDER SIDE)
--- NOTE | 2023-09-10 09:26 | WOUNDNOTE ---
L FOREARM (UNDER SIDE)
--- NOTE | 2023-09-10 09:32 | WOUNDNOTE ---
[facility] RN note: Patient admitted with OBI, AMS, encephalopathy vs dementia, unwitnessed fall, confusion. Patient admitted from [facility]
See H&P for complete history.
PMH: COPD, a fib (Eliquis), CVA, HF, recent [facility] admission, BPH, R leg bypass.
Wound Location and type/assessment: Patient admitted with: L arm dermal skin tears, L upper woodson dermal skin tear, R anterior thigh linear scabbed abrasion. MASD groin folds, perianal skin. L great toe tip small bruise.
Bilateral heel dull purple bruise vs evolving DTI? Pedal pulses heard easily via portable Doppler.
Appetite: fair.
Pressure redistribution devices in place: Versac[employer] Accumax. TruVue Lite boots. Patient cannot turn himself in bed. Discussed with JOSE MARTIN Acuña who stated patient has not been trying to get out of bed.
Plan: Patient incontinent of urine. Marika care given, patient turned and Waffle air overlay applied with help from [employer]as. Discussed with JOSE MARTIN Acuña who will switch bed to an air bed if patient is trying to get out of bed. TruVue Lite heel relief
boots reapplied after changing heel foam dressings. R arm dressing changed. Patient turned to R semi side lying position.
Will confirm orders with hospitalist.
Care plan to be updated and will follow as needed.
[2023-09-10] MEDS: 0.45%NACL 1000 IV (10:26)
--- NOTE | 2023-09-10 10:35 | CON.PUL ---
Consultation
Consultation Request
Date/Time Consultation Requested: 09/09/2023 - 2305
Date/Time Consultation Performed: 09/10/2023 - 1019
Requesting Provider: Dr. Fish
Performing Provider: Dr. Hay
Reason for Consultation: Hypoxia
Medical History
-
Chief Complaint: AMS
History of Present Illness:
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
via TTE on 08/29/2023) who p/w AMS. Patient recently hospitalized here at from 08/28 � 09/04/2023 due to AMS, and found to have multiple nonhemorrhagic acute/subacute L-sided CVA on brain MRI, diagnosed on 08/30/2023. He was DC'd to [place] but on
AM of arrival he was difficult to arouse and was confused, per staff. Here in the ER he was afebrile to 97.7 �F, pulse rate 71, RR: 18, saturating 100% on room air, and BP 141/119. Labs showed chronic anemia 9.2, chronic thrombocytopenia 109, OBI
with creatinine 1.7, elevated total bilirubin to 2.7, proBNP 5450 and urinalysis was suggestive of UTI with trace leukocyte esterase and moderate bacteria. He was admitted to the hospitalist service and started on antibiotics for possible UTI. CT
head showed no acute intracranial abnormality. Initial CXR showed acute interstitial edema. Abdominal ultrasound obtained given patient's elevated bilirubin, and US showed cholelithiasis with top normal CBD with no intrahepatic biliary dilatation.
There is also hepatosplenomegaly. GI consulted. The patient initially required no oxygen and during hospital stay has required 3-4 L/min of nasal cannula. Given patient's diagnosis of COPD and now oxygen requirements, pulmonary service consulted
for additional recommendations.
When I saw the patient he was in bed with nasal cannula off his face. He was breathing comfortably in no acute distress. He is very hard of hearing but still is confused as to why I was seeing him. He says he is breathing comfortably and denies
chest pain or SOB.
Of note, patient follows with us in [facility] office with Dr. Chawla, last office visit on 08/13/2023. He has history of mild COPD on Trelegy 100mcg. Last PFT performed on 08/13/2023 showed an FEV1 of 2.6 L (106%), with normal lung volumes and a severely
reduced DLCO of 24%. Last TTE performed on 08/29/2023 showed mildly reduced LVEF at 45-50%, with mild diffuse global hypokinesis, and a dilated RV with mild reduced systolic function. Also PASP is 53 mmHg assuming an RAP of 3, and his PHTN is
improved compared to prior TTE from April 2023 which showed a PASP of 71 mmHg (with an assumed RAP of 8mmHg). His last CT was performed on 06/12/2023 at an outside hospital showing centrilobular/paraseptal emphysema with multiple pulmonary nodules
and hilar/mediastinal lymphadenopathy. It appears his largest nodule is in his right oblique fissure measuring roughly 8.8 mm.
PMHx: COPD, A-fib s/p DCCV on Eliquis, history of L-sided ischemic CVA (diagnosed August 2023), history of lung granuloma, colitis, history of AAA s/p repair, PVD, CAD s/p stent, history of Anemia, MDD, Hypothyroidism
PSHx: Right lower extremity bypass, hernia repair x 5, colectomy, brachial artery repair, popliteal artery aneurysm repair, coronary stent, AAA stent graft repair
Past Medical History
Past Medical History: Other (Above as per HPI)
Past Surgical History: Other (Above as per HPI)
Social History
Tobacco: Former Smoker
Alcohol: None
Drug: None
Family History
Family History: CAD (Father (with history of CABG)) and Hypertension (Father)
Allergies / Home Medications
Allergies
Allergy/AdvReac Type Severity Reaction Status Date / Time
adhesive tape Allergy Unknown Verified 08/29/23 09:49
Iodinated Contrast Media Allergy BURNING Verified 08/29/23 09:49
[IV Dye, Iodine Containing] SENSATION
Home Medications
�Medication �Instructions �Recorded �Confirmed �Last Taken �Type
finasteride 5 mg tablet 5 mg PO DAILY Urinary issue 06/07/20 09/06/23 09/05/23 History
levothyroxine 50 mcg tablet 50 mcg PO DAILY Thyroid 06/07/20 09/06/23 09/06/23 History
acetaminophen 325 mg tablet 650 mg PO Q4HPRN PRN mild 08/29/23 09/06/23 09/06/23 History
(Tylenol) pain/fever>100
apixaban 5 mg tablet (Eliquis) 5 mg PO BID Blood Clot 08/29/23 09/06/23 09/05/23 History
Prevention/Tx
atorvastatin 40 mg tablet 40 mg PO HS High Cholesterol 08/29/23 09/06/23 09/05/23 History
fluticasone fur. 100 mcg-umeclid 1 inh inhalation R HS 08/29/23 09/06/23 09/05/23 History
62.5 mcg-vilant 25 mcg Lung/Breathing Issues
inhalat.powder (Trelegy Ellipta)
furosemide 40 mg tablet 40 mg PO DAILY Fluid 08/29/23 09/06/23 09/05/23 History
Retention/Swelling
pantoprazole 40 mg tablet,delayed 40 mg PO HS Gastrointestinal Issue 08/29/23 09/06/23 09/05/23 History
release
sacubitril 24 mg-valsartan 26 mg 1 tab PO BID Heart Failure 08/29/23 09/06/23 09/05/23 History
tablet (Entresto)
aspirin 81 mg tablet,delayed 81 mg PO DAILY #21 tabs 09/04/23 09/06/23 09/05/23 Rx
release
bisacodyl 10 mg rectal suppository 10 mg MI DAILY PRN if MOM 09/06/23 09/06/23 Unknown History
(Dulcolax (bisacodyl)) ineffective, give on day 5 of no BM
magnesium hydroxide 400 mg/5 mL 30 ml PO DAILY PRN if no BM x 4 09/06/23 09/06/23 Unknown History
oral suspension (Milk of Magnesia) days
melatonin 3 mg tablet 3 mg PO HS PRN sleep 09/06/23 09/06/23 09/06/23 History
sodium phosphates 19 gram-7 118 ml MI DAILYPRN PRN if dulcolax 09/06/23 09/06/23 Unknown History
gram/118 mL enema (Fleet Enema) supp ineffective, on day 6 of no BM
Review of Systems
-
Unable to Obtain full review of systems at this time due to: Other (Confused)
Vitals / Labs / Diagnostic Testing
Vital Signs
Temp Pulse Resp BP Pulse Ox
97.7 F 81 18 108/62 91
09/10/23 07:00 09/10/23 07:00 09/10/23 07:00 09/10/23 07:00 09/10/23 07:00
Lab Data
09/10/23 06:55
09/10/23 06:55
Laboratory Results
09/10/23
06:55
PT 28.0 H
INR 2.63
Microbiology
09/08/23 09:05 Blood/Venous Blood Culture - Preliminary
No Growth in 48 hours- Final report to follow
09/08/23 07:54 Blood/Venous Blood Culture - Preliminary
No Growth in 48 hours- Final report to follow
09/07/23 10:30 Nose MRSA Screen - Final
No Methicillin Resistant Staphylococcus aureus isolated.
09/08/23 05:30 Nasal Swab Influenza Types A & B (JUAN ALBERTO) - Final
Negative for Influenza A & B, NAAT
Negative results must be combined with clinical observations
and patient history.
Nucleic Acid Amplification test (NAAT)performed on the
[employer] platform.
09/06/23 12:37 Urine Urine Culture - Final
No Significant Growth
Diagnostic Testing:
Physical Exam
-
HEENT: Normocephalic and Anicteric
Cardiovascular: S1/S2 and Peripheral Edema (negative)
Respiratory: Wheeze (negative), Rales (bibasilar), Rhonchi (negative) and Non-Labored Respirations
GI: Soft, Non Distended and Non Tender
Neurology: Awake, Alert and Other (Confused, AAOx2)
Skin: Warm and Dry
General: Comfortable and Chills (negative)
Assessment
-
Assessment: 83-year-old male former tobacco smoker (quit in 1999) with a past medical history of panlobular emphysema/COPD, A-fib on Eliquis, PAD s/p RLE bypass, CAD s/p DCCV on Eliquis, history of COVID-19, chronic rhinitis and history of HFmrEF
(LVEF: 45-50% via TTE on 08/29/2023) who p/w AMS. Patient recently hospitalized here at from 08/28ue to AMS, and found to have multiple nonhemorrhagic acute/subacute L-sided CVA on brain MRI, diagnosed on 08/30/2023. He was DC'd to
[facility] but on AM of arrival he was difficult to arouse and was confused, per staff. Here in the ER he was afebrile to 97.7 �F, pulse rate 71, RR: 18, saturating 100% on room air, and BP 141/119. Labs showed chronic anemia 9.2, chronic
thrombocytopenia 109, OBI with creatinine 1.7, elevated total bilirubin to 2.7, proBNP 5450 and urinalysis was suggestive of UTI with trace leukocyte esterase and moderate bacteria. He was admitted to the hospitalist service and started on
antibiotics for possible UTI. CT head showed no acute intracranial abnormality. Initial CXR showed acute interstitial edema. Abdominal ultrasound obtained given patient's elevated bilirubin, and US showed cholelithiasis with top normal CBD with
no intrahepatic biliary dilatation. There is also hepatosplenomegaly. GI consulted. The patient initially required no oxygen and during hospital stay has required 3-4 L/min of nasal cannula. On evening of 09/06, pt spiked fever to 101.3. Given
patient's diagnosis of COPD and now oxygen requirements, pulmonary service consulted for additional recommendations.
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
Anemia, MDD, Hypothyroidism, personal history of COVID-19 (05/2020)
Impression:
#Acute respiratory failure with hypoxia on supplemental oxygen - likely due to acute HFmrEF exacerbation with acute interstitial/pulmonary edema
#Acute HFmrEF exacerbation
#Acute kidney injury
#Hyperbilirubinemia with cholelithiasis
#Abnormal UA with trace leukocyte esterase and moderate bacteria, suggestive of UTI
#Chronic anemia/thrombocytopenia
#Mild COPD/emphysema with severe gas exchange capacity defect as per PFTs (DLco: 24% on PFT from 08/13/2023)
#Moderate pHTN
#Multiple pulmonary nodules - largest nodule is approximately 9mm nodule seen on recent CT chest from 06/12/2023 - it is within the right oblique fissure - this is consistent with an intra-fissural lymph node and does not need follow up; it appears
his 2nd largest nodule is in RLL measuring 6.6mm - this should be monitored closely
#AMS likely due to TME in setting of OBI with suspected UTI in a patient with known CVA at risk for vascular dementia
Plan:
- Maintain net negative fluid balance as tolerated
- Titrate down O2 flow rate to keep SpO2 >88% and <96%
- Elevated T. bili with cholelithiasis and top-normal CBD workup as per GI
- Continue with Abx for possible UTI - would complete 7 days; Follow up blood and urine Cx
- Continue inhalers with Symbicort 80mcg and Spiriva (rinse mouth after using ICS-containing MDI inhaler)
- Aspiration precautions
- Avoid narcotics or any sedating medications
- Incentive spirometer encouraged
- prn nebulized bronchodilators
- Trend sCr and UOP
- Replete electrolytes with K>4, Mg>2
- Maintain euglycemia with goal BG >100 and <180
- DVT ppx
Pulmonary service will continue to follow along. Outpatient follow up with [facility] with Dr. Chawla for his COPD and multiple pulmonary nodules.
Total time spent today was 55 minutes for this encounter. Time includes reviewing laboratory test/imaging results, reviewing pertinent medical records, obtaining and reviewing medical history, performing an appropriate exam, ordering medications,
tests and procedures. Time also includes documentation of this encounter, coordinating patient care and communicating with other healthcare professionals. Total time does not include separately billed tests performed on this date of service.
Data:
CXR 09-06-2023:
Mild interstitial edema, cardiomegaly, findings consistent with CHF. No focal airspace process.
There is a 9 mm nodule right mid to lower lung zone. Prominent hilar regions suggest adenopathy. This should be correlated with the report from the outside chest CT scan dated 06/12/2023.
Abdominal US 09-07-2023:
Cholelithiasis with top normal common bile duct and no intrahepatic biliary dilatation
Hepatosplenomegaly
Bilateral renal cysts
TTE 08-29-2023:
Normal LV size with mildly reduced systolic function.
LVEF is 45 to 50% by visual assessment.
Mild diffuse global hypokinesis.
Dilated RV with mildly reduced systolic function.
Mild mitral regurgitation.
Mild to moderate tricuspid regurgitation.
Estimated pulmonary artery pressure of 53 mmHg, assuming a right atrial
pressure of 3 mmHg.
Compared to prior from April 09, 2023, MR is mild from mild to moderate and
TR is mild to moderate from moderate to severe. Estimated PASP is mild to
moderately elevated compared to severely elevated on previous study.
[2023-09-10] MEDS: DUPHALAC/CHRONULAC 20 GRAMS PO ×2 (14:09→21:49)
--- NOTE | 2023-09-10 15:25 | WOUNDNOTE ---
WOC RN note: khushi Dunn re: recommend air mattress at SNF; patient is high risk for a pressure injury.
--- NOTE | 2023-09-10 15:32 | W.PN.GI.CBS2 ---
Today's Communication / Plan
-
pending mri
Assessment / Plan
-
83 yo M pmh as above recent CVA p/w AMS today this AM with a fever.
Bili rising, stones on US no lore dil, HSM, low platelets, elevated INR (question of cirrhosis as well). Bili today improving.
Pending MRI/MRCP both to look at bile ducts and get better look at liver - unclear if pt will be able to sit for exam
Seems less likely cholangitis given the fact AST/ALT/AP all normal and no intrahep lore dil on US but with direct/total bili elevation and fever seems prudent to check
D/w hospitalist re: August - if needs procedure may need to hold with recent stroke would prefer to wait for MRI to see if procedure needed
Continue antibiotics
Continue lactulose
Subjective
Subjective
Date of Service: September 10, 2023
More oriented today x2 but per daughter was having issues arousing him today
Objective
Data Reviewed
Laboratory Data:
Laboratory Results
09/10/23 06:55
09/10/23 06:55
Laboratory Results
PT 28.0 Sec (11.4-14.6) H 09/10/23 06:55
INR 2.63 09/10/23 06:55
Total Bilirubin 1.7 mg/dl (0.2-1.3) H 09/10/23 06:55
AST 27 U/L (17-59) 09/10/23 06:55
ALT 21 U/L (0-50) 09/10/23 06:55
Alkaline Phosphatase 69 U/L (38-126) 09/10/23 06:55
Vital Signs and I&O:
Vital Signs
Temp Pulse Resp BP Pulse Ox
97.9 F 89 17 96/58 94
09/10/23 15:00 09/10/23 15:00 09/10/23 15:00 09/10/23 15:00 09/10/23 15:00
I&O
09/09/23 09/10/23 09/11/23
06:59 06:59 06:59
Intake Total 1260 / 1260 750 / 750
Output Total 100 / 100 320 / 320
Balance 1160 / 1160 430 / 430
Physical Exam
Physical Exam
HEENT: Anicteric
Cardiology: Normal Sinus Rhythm
Pulmonary: Clear
GI: Non Distended and Non Tender
Neuro: Other (aaox2)
--- NOTE | 2023-09-10 16:08 | CM ---
Received notification from wound care that patient will need an air mattress at facility.
Plan: Case management will continue to follow and assist with discharge planning. Patient needs SNF, will discuss options.
[2023-09-10] MEDS: MELATONIN 3 MG PO (21:48)
[2023-09-10] MEDS: LIPITOR 40 MG PO (21:48)
[2023-09-10] MEDS: PROTONIX 40 MG PO (21:48)
[2023-09-11] VITALS (7 sets, daily range): BP systolic 99–118; BP diastolic 58–96; PULSE 72; O2SAT 97; BMI 27.6
[2023-09-11] MEDS: 0.45%NACL 1000 IV (03:00)
[2023-09-11] MEDS: SYNTHROID 50 MCG PO (06:31)
[2023-09-11 07:04] LABS: Hematocrit 28.4 % (39.0-52.0); Hemoglobin 8.5 g/dL (13.0-18.0); Mean Corp Hgb Conc. 29.9 g/dL (33.0-37.0); Mean Corpuscular Hgb 25.9 pg (27.0-31.0); Mean Corpuscular Volume 86.6 fL (80.0-94.0); Mean Platelet Volume 9.5 fL (7.4-10.4); Platelet Count 96 10^3/uL (130-400); Red Blood Cell Count 3.28 10^6/uL (4.70-6.10); Red Cell Dist. Width 18.6 % (11.5-14.5); White Blood Cell Count 6.6 10^3/uL (4.8-10.8)
--- NOTE | 2023-09-11 07:21 | W.PN.HOSP.TC ---
Today's Communication/Plan
-
Replete potassium
Check procalcitonin
Discharged to [facility] tomorrow
Assessment / Plan
Assessment / Plan
IMPRESSION:
83M COPD, A-fib on Eliquis, recent CVA, HFpEF (recovered EF) presents from [place] d/t concerns low blood pressure confusion fall. Patient was recently discharged from this facility 3 days ago following hospitalization for stroke. Following transfer to
[facility] blood pressure was noted periodically low systolic 80s. Patient also seemed confused, though possible baseline given aphasia. Patient was found sitting on the floor sparking concerns for unwitnessed fall prompting return to ED for
evaluation. CT head noted no acute abn's. Patient was hypotensive 80s since improved 90s without intervention. Afebrile stable respiratory status room air. Labs were notable for OBI Cr 1.7, baseline 1.0-1.1. T bili elevation and BNP elevation
5000s though improved from prior Apr 2023. Weight gain was noted. 85k. Patient was 79.407 kg on discharge 3 days ago. CXR noted mild interstitial edema cardiomegaly.
PLAN:
#Acute Encephalopathy possibly 2/2 acute on chronic HFmrEF cardiorenal syndrome vs overdiuresis dehydration hypotension OBI
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
#hx CVA
Daily weight I/O fluid restriction diet 50 oz
Cardio eval appreciated cont hold Entresto, Lasix briefly resumed (held again due to worsening obi as below)
CT head notes no new acute abn's
Cont home Eliquis ASA (Eliquis to be reduced to 2.5 when Cr 1.5 or higher)
Neuro eval appreciated likely Toxic Metabolic Encephalopathy no further brain imaging recommended at this time
Psych eval appreciated prn seroquel HS - has not required
From [facility] (was there a few days), lives at home w/ son and DIL
Plan for discharge back to short-term rehab tomorrow
#Acute hypoxic respiratory insufficiency
#COPD
Episode Hypoxia/low PaO2 noted on ABG during episode confusion delirium agitation overnight
ABG note respiratory alkalosis with compensated Metabolic acidosis
no wheezing/crackles noted
Oxygen dependence remains persistent
Pulmonology following, recommend continuing inhalers
Patient appears to be breathing through his mouth, unclear if he is actually needing 2.5 L of oxygen
Continue to wean as tolerated
Speech Eval appreciated
IDDSI lvl 6 soft and bite sized diet, thin liquids
medications whole in puree
Aspiration precautions
PT/OT eval appreciated SNF rehab
CXR notes new 9 mm nodule right mid to lower lung zone, outpt CT and follow up with Pulm recommended
# Acute on chronic hyperbilirubinemia
Abd US notes cholelithiasis with top normal common bile duct/no intrahepatic biliary dilation
Hepatosplenomegaly
Abd exam benign no acute tenderness noted
GI eval appreciated, abdominal MRI negative for CBD dilatation
Bilirubin downtrending to 1.6, about his baseline
Fever noted 09/07
COVID Flu Neg
blood cx's NTD
Repeat Urinalysis neg for UTI
mild associate Leukocytosis noted in am
empiric Ceftriaxone started, flagyl added as per GI
Fever White count since resolved, last fever 09/08/23
Check procalcitonin
#OBI possibly cardiorenal (less likely) vs dehydration/hypotension (more likely)
bladder renal US appreciated b/l renal cysts up to 6 cm, incompletely distended bladder, no hydronephrosis abnormal solid or complex renal masses, no renal calculi
Initial Cr 1.7 improved to 1.2 without IVF or diuresis, increased to 1.5 following restart lasix since placed on hold. Kidney function improving off Lasix
Patient refusing meals AMS, continued hold lasix pending improvement oral intake, gentle IVF hydration started
#Hypernatremia
Change IVFs to 1/2 NS
Urinalysis not suggestive of UTI though bacteria present
Urine cx no significant growth
#BPH cont finasteride
#Hypothyroidism
Continue Synthroid
Recent TSH wnl
#Gastroesophageal reflux disease
Continue PPI
DVT prophylaxis�Eliquis
Updated son on phone 09/10
Total time spent to see the patient on the floor, examine the patient, review data and lab results, discuss treatment plan with patient, nursing staff around 50 minutes.
Physical Exam
General: No pallor, cyanosis, or jaundice.
HEENT: Throat clear. Normocephalic atraumatic. Possible left side facial droop vs ptosis
NECK: Supple. No JVD Carotid Bruits
RESPIRATORY: Lungs clear to auscultation. No crackles wheezes stridor
CVS: S1, S2 normal. RRR. No murmur, rub or gallop.
ABDOMEN: Soft, non-tender. No distension. BS+/normal.
EXTREMITIES: No peripheral cyanosis or edema.
DONOR PROCESSOR: Awake Conversant but confused Aphasic. Left sided weakness
Anticipated Discharge: Within 24 hours
Subjective/Interval History
-
Date of Service: September 11, 2023
Patient awake, alert, back to normal mentation. No fever, no vomiting.
Objective Data
-
Labs:
Laboratory Results
09/11/23
06:06
WBC 6.6
Hgb 8.5 L
Hct 28.4 L
Plt Count 96 L
Sodium Pending
Potassium Pending
Chloride Pending
Carbon Dioxide Pending
BUN Pending
Creatinine Pending
Glucose Pending
Calcium Pending
Total Bilirubin Pending
AST Pending
ALT Pending
Alkaline Phosphatase Pending
Vital Signs:
Vital Signs
Temp Pulse Resp BP Pulse Ox
97.6 F 81 16 103/69 96
09/11/23 03:47 09/11/23 03:47 09/11/23 03:47 09/11/23 03:47 09/11/23 03:47
I&O
09/10/23 09/11/23 09/12/23
06:59 06:59 06:59
Intake Total 750 / 750 1050 / 1050
Output Total 320 / 320 600 / 600
Balance 430 / 430 450 / 450
[2023-09-11 07:25] LABS: ALT (SGPT) 21 U/L (0-50); AST (SGOT) 27 U/L (17-59); Albumin 2.5 g/dl (3.5-5.0); Alkaline Phosphatase 70 U/L (38-126); Blood Urea Nitrogen 40 mg/dl (9-20); Carbon Dioxide 20 mmol/L (22-30); Chloride 116 mmol/L (98-107); Estimated Creatinine Clearance 59 ml/min; Glucose 90 mg/dl (70-99); Potassium 3.4 mmol/L (3.5-5.1); Sodium 141 mmol/L (135-145); Total Bilirubin 1.6 mg/dl (0.2-1.3); Total Protein 6.1 g/dl (6.3-8.2); eGFR > 60.00
--- NOTE | 2023-09-11 07:57 | PN.CDI ---
CDI
- -
CDI:
Physician Documentation Request
Admit Date: 09/06/23 18:23
Dear Doctor Do,
Please review the following and provide your response in the progress notes.
Clinical Indicators:
- 09/06 Cardiology indicates acute on chronic HFmrEF
- 09/09 PN 'acute on Chronic HFpEF'
- 08/28 Echo EF 45-50%
Please provide further specificity regarding the most likely type of CHF you are evaluating, treating or monitoring.
Acute on chronic HFmrEF
Acute on chronic HFrEF
Other
Use of terms such as suspected, likely, concern for, or probable (associated with a specific diagnosis that is being evaluated, monitored, or treated as if it exists) are acceptable and can be coded in the inpatient setting, when documented at the
time of discharge.
Thank you,
Naif Zheng RN
CDI Specialist
Please use your independent medical judgment in providing your response.
[2023-09-11] MEDS: SPIRIVA RESPIMAT 2.5 MCG 2 PUFF INH (08:17)
[2023-09-11] MEDS: SYMBICORT 80/4.5 MCG INHALER 2 PUFF INH ×2 (08:17→21:06)
--- NOTE | 2023-09-11 10:06 | CM ---
Placed a call to [facility] admissions and spoke with Savannah to update that patient will need an air mattress upon return. Savannah stated that she will obtain one and to update her when patient is cleared for discharge.
Plan: Case management will continue to follow and assist with discharge planning. Back to [facility] when stable.
--- NOTE | 2023-09-11 11:09 | W.PN.PUL3 ---
Today's Communication / Plan
-
Continue Symbicort and Spiriva
Antibiotics for suspected UTI
Maintain net negative fluid balance as tolerated
Recheck chest x-ray in the morning and trend BNP
Outpatient follow-up with [facility] with Dr. Chawla
Pulmonary service to continue to briefly follow along
Assessment
-
Assessment: 83-year-old male former tobacco smoker (quit in 1999) with a past medical history of panlobular emphysema/COPD, A-fib on Eliquis, PAD s/p RLE bypass, CAD s/p DCCV on Eliquis, history of COVID-19, chronic rhinitis and history of HFmrEF
(LVEF: 45-50% via TTE on 08/29/2023) who p/w AMS. Patient recently hospitalized here at from 08/28ue to AMS, and found to have multiple nonhemorrhagic acute/subacute L-sided CVA on brain MRI, diagnosed on 08/30/2023. He was DC'd to
[facility] but on AM of arrival he was difficult to arouse and was confused, per staff. Here in the ER he was afebrile to 97.7 �F, pulse rate 71, RR: 18, saturating 100% on room air, and BP 141/119. Labs showed chronic anemia 9.2, chronic
thrombocytopenia 109, OBI with creatinine 1.7, elevated total bilirubin to 2.7, proBNP 5450 and urinalysis was suggestive of UTI with trace leukocyte esterase and moderate bacteria. He was admitted to the hospitalist service and started on
antibiotics for possible UTI. CT head showed no acute intracranial abnormality. Initial CXR showed acute interstitial edema. Abdominal ultrasound obtained given patient's elevated bilirubin, and US showed cholelithiasis with top normal CBD with
no intrahepatic biliary dilatation. There is also hepatosplenomegaly. GI consulted. The patient initially required no oxygen and during hospital stay has required 3-4 L/min of nasal cannula. On evening of 09/06, pt spiked fever to 101.3. Given
patient's diagnosis of COPD and now oxygen requirements, pulmonary service consulted for additional recommendations.
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
Anemia, MDD, Hypothyroidism, personal history of COVID-19 (05/2020)
Impression:
#Acute respiratory failure with hypoxia on supplemental oxygen - likely due to acute HFmrEF exacerbation with acute interstitial/pulmonary edema
#Acute HFmrEF exacerbation
#Acute kidney injury
#Hyperbilirubinemia with cholelithiasis - negative MRCP with no definite evidence of biliary ductal dilatation (however limited by metal artifact)
#Abnormal UA with trace leukocyte esterase and moderate bacteria, suggestive of UTI
#Chronic anemia/thrombocytopenia
#Mild COPD/emphysema with severe gas exchange capacity defect as per PFTs (DLco: 24% on PFT from 08/13/2023)
#Moderate pHTN
#Multiple pulmonary nodules - largest nodule is approximately 9mm nodule seen on recent CT chest from 06/12/2023 - it is within the right oblique fissure - this is consistent with an intra-fissural lymph node and does not need follow up; it appears
his 2nd largest nodule is in RLL measuring 6.6mm - this should be monitored closely
#AMS likely due to TME in setting of OBI with suspected UTI in a patient with known CVA at risk for vascular dementia
Plan:
- Maintain net negative fluid balance as tolerated --> I will re-check CXR in AM to re-assess lung parenchyma
- He has now been weaned off O2 and is on room air; maintain SpO2 between >88% and <96%
- Elevated T. bili with cholelithiasis and top-normal CBD workup as per GI; continue to trend LFTs
- Continue with Abx for possible UTI - would complete 7 days; Follow up blood and urine Cx
- Continue inhalers with Symbicort 80mcg and Spiriva (rinse mouth after using ICS-containing MDI inhaler)
- Aspiration precautions
- Avoid narcotics or any sedating medications
- Incentive spirometer encouraged
- prn nebulized bronchodilators
- Trend sCr and UOP
- Trend BNP
- Replete electrolytes with K>4, Mg>2
- Maintain euglycemia with goal BG >100 and <180
- DVT ppx
Disposition efforts --> PT/OT both recommend skilled rehab upon discharge
Pulmonary service will continue to follow along. Outpatient follow up with [facility] with Dr. Chawla for his COPD and multiple pulmonary nodules.
Total time spent today was 35 minutes for this encounter. Time includes reviewing laboratory test/imaging results, reviewing pertinent medical records, obtaining and reviewing medical history, performing an appropriate exam, ordering medications,
tests and procedures. Time also includes documentation of this encounter, coordinating patient care and communicating with other healthcare professionals. Total time does not include separately billed tests performed on this date of service.
Data:
CXR 09-06-2023:
Mild interstitial edema, cardiomegaly, findings consistent with CHF. No focal airspace process.
There is a 9 mm nodule right mid to lower lung zone. Prominent hilar regions suggest adenopathy. This should be correlated with the report from the outside chest CT scan dated 06/12/2023.
Abdominal US 09-07-2023:
Cholelithiasis with top normal common bile duct and no intrahepatic biliary dilatation
Hepatosplenomegaly
Bilateral renal cysts
MRCP 09-11-2023:
Limited by metal artifact as result of aortic stent graft.
Possible cholelithiasis.
No definite evidence to suggest biliary ductal dilatation, though limited by metal artifact. Nondiagnostic evaluation of the pancreas.
Consider further evaluation and follow-up ultrasound and/or CT.
Splenomegaly.
Renal cysts.
Questionable partially visualized pulmonary nodule in the anterior right lung base.
TTE 08-29-2023:
Normal LV size with mildly reduced systolic function.
LVEF is 45 to 50% by visual assessment.
Mild diffuse global hypokinesis.
Dilated RV with mildly reduced systolic function.
Mild mitral regurgitation.
Mild to moderate tricuspid regurgitation.
Estimated pulmonary artery pressure of 53 mmHg, assuming a right atrial
pressure of 3 mmHg.
Compared to prior from April 09, 2023, MR is mild from mild to moderate and
TR is mild to moderate from moderate to severe. Estimated PASP is mild to
moderately elevated compared to severely elevated on previous study.
Subjective Data
-
Date of Service:
Date of Service: September 11, 2023
Chief Complaint: Pulmonary Follow Up
Subjective:
Patient seen and evaluated today at bedside. Laying in bed on room air breathing comfortably. He is confused but in no acute distress. Denies chest pain, abdominal pain, shortness of breath, fevers or chills.
Review of Systems
General: Other (Unable to obtain due to patient's acute clinical status/dementia)
Objective Data
Data Reviewed
Vital Signs / I&O / Oxygen:
Vital Signs
Temp Pulse Resp BP Pulse Ox
97.6 F 86 20 101/60 98
09/11/23 19:06 09/11/23 19:06 09/11/23 19:06 09/11/23 19:06 09/11/23 19:06
Intake and Output
09/10/23 09/11/23 09/12/23
06:59 06:59 06:59
Intake Total 750 / 750 1050 / 1050 960 / 960
Output Total 320 / 320 600 / 600 500 / 500
Balance 430 / 430 450 / 450 460 / 460
SaO2 98
Nasal Cannula flow liters per 3
minute
Physical Exam
General: Respiratory Distress (negative) and Comfortable
HEENT: Normocephalic and Anicteric
Cardiovascular: S1-S2 and Peripheral Edema (Negative)
Respiratory: Wheeze (Negative), Crackles (Negative), Rhonchi (Negative), Non-Labored Respirations and Other (Coarse breath sounds heard bilaterally)
GI: Soft, Non Distended and Non Tender
Neurology: Awake and Alert
Skin: Warm and Dry
Labs/Micro/Reports
Lab Data
09/11/23 06:06
09/11/23 06:06
Microbiology
09/08/23 09:05 Blood/Venous Blood Culture - Preliminary
No Growth in 72 hours- Final report to follow
09/08/23 07:54 Blood/Venous Blood Culture - Preliminary
No Growth in 72 hours- Final report to follow
--- NOTE | 2023-09-11 11:57 | W.PN.UPDATE ---
Update Note
Progress Note Update
Patient seen at bedside, chart reviewed, discussed with staff. Mr. Velázquez is pleasantly confused. Pending MRI/MRCP after a fever and elevated bili and INR and stones on U/S. On antibiotics and lactulose. No acute issues overnight, no agitation
reported. PRN Seroquel has not been needed.
Impression/Recommendations: TME secondary to medical illness - Seroquel available for agitation however, has not been needed. Psych will sign off. Call or reconsult with any new or immediate needs.
[2023-09-11] MEDS: ELIQUIS 5 MG PO ×2 (12:08→19:19)
[2023-09-11] MEDS: DESENEX/MITRAZOL/ZEASORB 1 APPLIC TOPICAL ×2 (12:08→21:12)
[2023-09-11] MEDS: DUPHALAC/CHRONULAC 20 GRAMS PO ×2 (12:08→19:19)
[2023-09-11] MEDS: ASPIR LOW (ENTERIC COATED) 81 MG PO (12:08)
[2023-09-11] MEDS: STERILE WATER FOR INJECTION 20 ML IV (12:09)
[2023-09-11] MEDS: ROCEPHIN 2000 MG IV (12:09)
[2023-09-11] MEDS: PROSCAR 5 MG PO (12:09)
--- NOTE | 2023-09-11 13:58 | W.PN.GI.CBS2 ---
Today's Communication / Plan
-
MRI/MRCP w/o ductal dilatation, normal liver. Cholelithiasis, somewhat limited study due to artifact. Consider CCK-HIDA. Tbili is at baseline for patient. GI will sign off, please call with questions.
Assessment / Plan
-
Deuce Velázquez is an 83 y.o. male w/ pmhx CVA, panlobular emphysema/copd, afib on eliquis, PAD s/p RLE bypass, CAD s/p DCCV on Eliquis, HFmrEF, admitted with encephalopathy, found to be febrile with elevated total bilirubin, GI consulted due to
concerns for biliary source.
Initial labs with elevated bilirubin and INR with question of underlying chronic liver disease and c/f cholangitis. MRI abdomen performed today showed a large, prominent signal void metal artifact in the central abdomen secondary to the presence of
stent graft. Liver unremarkable. Splenomegaly. Moderate gallbladder distention, limited evaluation of the gallbladder lumen. Suggestion of small low-attenuation structure along the nondependent margin near the gallbladder neck measuring
approximately 5 mm, raising the possibility of cholelithiasis. No definite apparent bile duct dilatation, though largely obscured by metallic artifact. Pancreas is obscured. Questionable partially filled visualized pulmonary nodule in the
anterior right lung base.
Bilirubin slightly improved from 1.7 -->1.6 today. Reviewing his prior labs, patient has had a persistently elevated bilirubin dating back to 07/31/16, and current value of 1.6 seems to be his baseline. He has no evidence of cirrhosis on imaging. He
has no biliary ductal dilatation to suggest cholangitis or choledocholithiasis. He does likely have cholelithiasis but no evidence to suggest acute cholecystitis. Could consider CCK-HIDA if felt to be possible source of fevers/encephalopathy and
discuss with surgery/IR best management strategy given age and comorbidities.
No plans for endoscopic intervention at this time. GI will sign off, please call with questions.
Subjective
Subjective
Date of Service: September 11, 2023
Patient seen in follow-up today, pleasant but confused, AAOx2 on exam. MRI shows possible cholelithiasis, normal appearing liver and no ductal dilatation. Study largely limited due to prominent signal void metal artifact due to stent graft. Tbili
slightly improved to 1.6 today.
Objective
Data Reviewed
Laboratory Data:
Laboratory Results
09/11/23 06:06
09/11/23 06:06
Laboratory Results
PT 28.0 Sec (11.4-14.6) H 09/10/23 06:55
INR 2.63 09/10/23 06:55
Total Bilirubin 1.6 mg/dl (0.2-1.3) H 09/11/23 06:06
AST 27 U/L (17-59) 09/11/23 06:06
ALT 21 U/L (0-50) 09/11/23 06:06
Alkaline Phosphatase 70 U/L (38-126) 09/11/23 06:06
Vital Signs and I&O:
Vital Signs
Temp Pulse Resp BP Pulse Ox
98.6 F 89 17 118/69 97
09/11/23 10:48 09/11/23 10:48 09/11/23 10:48 09/11/23 10:48 09/11/23 12:32
I&O
09/10/23 09/11/23 09/12/23
06:59 06:59 06:59
Intake Total 750 / 750 1050 / 1050
Output Total 320 / 320 600 / 600
Balance 430 / 430 450 / 450
Physical Exam
Physical Exam
HEENT: Anicteric
Cardiology: Normal Sinus Rhythm
Pulmonary: Clear
GI: Non Distended and Non Tender
Neuro: Other (aaox2)
[2023-09-11] MEDS: KCL 40 MEQ PO (15:32)
[2023-09-11] MEDS: LASIX 40 MG PO (15:32)
[2023-09-11] MEDS: SEROQUEL 25 MG PO (19:19)
[2023-09-11] MEDS: MELATONIN 3 MG PO (21:12)
[2023-09-11] MEDS: PROTONIX 40 MG PO (21:12)
[2023-09-11] MEDS: LIPITOR 40 MG PO (21:12)
[2023-09-12 05:38] VITALS: BP 100/51
[2023-09-12] MEDS: SYNTHROID 50 MCG PO (05:44)
[2023-09-12 06:00] VITALS: BMI 27.7
[2023-09-12 06:16] LABS: Hematocrit 25.2 % (39.0-52.0); Hemoglobin 7.8 g/dL (13.0-18.0); Mean Corpuscular Hgb 26.3 pg (27.0-31.0); Mean Corpuscular Volume 84.8 fL (80.0-94.0); Mean Platelet Volume 9.5 fL (7.4-10.4); Platelet Count 94 10^3/uL (130-400); Red Blood Cell Count 2.97 10^6/uL (4.70-6.10); Red Cell Dist. Width 18.6 % (11.5-14.5); White Blood Cell Count 5.8 10^3/uL (4.8-10.8)
--- NOTE | 2023-09-12 06:34 | PTCARENOTE ---
Pt fixated on leaving and attempting to get oob at beginning of this RNs shift. PRN seroqel given (see MAR). Pt agitated at times throughout shift, able to redirect pt multiple times. Pt awake majority of shift, pt now resting comfortably, eyes
closed, respirations even and unlabored. Bed alarm in place and plan of care ongoing.
[2023-09-12 06:40] LABS: ALT (SGPT) 19 U/L (0-50); AST (SGOT) 22 U/L (17-59); Albumin 2.4 g/dl (3.5-5.0); Alkaline Phosphatase 67 U/L (38-126); Blood Urea Nitrogen 31 mg/dl (9-20); Calcium 7.8 mg/dl (8.4-10.2); Carbon Dioxide 19 mmol/L (22-30); Chloride 117 mmol/L (98-107); Estimated Creatinine Clearance 53 ml/min; Glucose 93 mg/dl (70-99); Potassium 3.6 mmol/L (3.5-5.1); Sodium 140 mmol/L (135-145); Total Bilirubin 1.6 mg/dl (0.2-1.3); Total Protein 5.8 g/dl (6.3-8.2); eGFR > 60.00
[2023-09-12 06:46] LABS: Procalcitonin 0.24 ng/ml (0.0-0.25)
[2023-09-12 06:47] LABS: NT-proBNP 4880 pg/ml
[2023-09-12 07:00] VITALS: BP 101/74
--- NOTE | 2023-09-12 07:53 | PN.CDI ---
CDI
- -
CDI:
Physician Documentation Request
Admit Date: 09/06/23 18:23
Dear Doctor Do,
Please review the following and provide your response in the progress notes.
Clinical Indicators:
- 09/10 Pulmonary 'Acute respiratory failure with hypoxia...likely due to acute HFmrEF exacerbation with acute interstitial/pulmonary edema'
- 09/10 PN 'Acute hypoxic respiratory insufficiency'
- 'Oxygen dependence remains persistent'
- 3-4L O2, pulse ox >92%
Clarify which of the following accurately represents the patient's respiratory status:
Acute hypoxic respiratory failure
Acute hypoxic respiratory insufficiency
Hypoxia
Other
Additional information for Respiratory Failure:
Recognized criteria for Respiratory Failure (Source: [facility] Hospitalist Mar 2013)
ABGs: (1 or more) Symptoms Please indicate type if known
1. p)2 <60 or RA SPO2 <91% on RA 1. Tachypnea, SOB, dyspnea Hypoxic
2. pCO2 50 and pH <7.35 2. Use of accessory muscles Hypercapnic
3. pO2 decrease of pCO2 increase by 3. Pallor or cyanosis Hypoxic and Hypercapnic
10 mmHg from baseline if known 4. Anxiety or restlessness Unable to determine
5. Unable to speak in full sentences
Supplemental O2 of > 40% (5LPM) Intubation is not required
Use of terms such as suspected, likely, concern for, or probable (associated with a specific diagnosis that is being evaluated, monitored, or treated as if it exists) are acceptable and can be coded in the inpatient setting, when documented at the
time of discharge.
Thank you,
Naif Zheng RN
CDI Specialist
Please use your independent medical judgment in providing your response.
[2023-09-12] MEDS: SYMBICORT 80/4.5 MCG INHALER 2 PUFF INH ×2 (08:24→19:14)
[2023-09-12] MEDS: SPIRIVA RESPIMAT 2.5 MCG 2 PUFF INH (08:24)
--- NOTE | 2023-09-12 08:25 | W.PN.HOSP.TC ---
Today's Communication/Plan
-
see bold
Assessment / Plan
Assessment / Plan
IMPRESSION:
83M COPD, A-fib on Eliquis, recent CVA, HFpEF (recovered EF) presents from [place] d/t concerns low blood pressure confusion fall. Patient was recently discharged from this facility 3 days ago following hospitalization for stroke. Following transfer to
[facility] blood pressure was noted periodically low systolic 80s. Patient also seemed confused, though possible baseline given aphasia. Patient was found sitting on the floor sparking concerns for unwitnessed fall prompting return to ED for
evaluation. CT head noted no acute abn's. Patient was hypotensive 80s since improved 90s without intervention. Afebrile stable respiratory status room air. Labs were notable for OBI Cr 1.7, baseline 1.0-1.1. T bili elevation and BNP elevation
5000s though improved from prior Apr 2023. Weight gain was noted. 85k. Patient was 79.407 kg on discharge 3 days ago. CXR noted mild interstitial edema cardiomegaly.
PLAN:
#Worsening acute on chronic normocytic anemia
Hemoglobin is 7.9 today, MCV normal
Hemoglobin on 08/29/2023 was 9.9
He is currently on Eliquis and aspirin, nursing staff denies black or bloody stools, no hematuria
Check iron, ferritin, B12, folic acid, TIBC, transferrin, reticulocyte count
Heme test stools, consult hematology
#Acute Encephalopathy
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
#Hx CVA
Daily weight I/O fluid restriction diet 50 oz
Cardio eval appreciated cont hold Entresto, Lasix briefly resumed (held again due to worsening obi as below)
CT head notes no new acute abn's
Cont home Eliquis ASA (Eliquis to be reduced to 2.5 when Cr 1.5 or higher)
Neuro eval appreciated likely Toxic Metabolic Encephalopathy no further brain imaging recommended at this time, stop stroke scales
Psych eval appreciated prn seroquel HS - has not required
From [facility] (was there a few days), lives at home w/ son and DIL
Plan for discharge back to short-term rehab tomorrow
#Acute on chronic HFmrEF
Resolved, back on oral Lasix
#Acute hypoxic respiratory insufficiency
#COPD
Episode Hypoxia/low PaO2 noted on ABG during episode confusion delirium agitation overnight
ABG note respiratory alkalosis with compensated Metabolic acidosis
No wheezing/crackles noted
Pulmonology following, recommend continuing inhalers
Was requiring 3 L, now on room air
It was noted that he was breathing through his mouth, unclear if he was actually getting the 3 L
Speech Eval appreciated
IDDSI lvl 6 soft and bite sized diet, thin liquids
medications whole in puree
Aspiration precautions
CXR notes new 9 mm nodule right mid to lower lung zone, outpt CT and follow up with Pulm recommended
# Acute on chronic hyperbilirubinemia
Abd US notes cholelithiasis with top normal common bile duct/no intrahepatic biliary dilation
Hepatosplenomegaly
Abd exam benign no acute tenderness noted
GI eval appreciated, abdominal MRI negative for CBD dilatation
Bilirubin downtrending to 1.6, about his baseline
Fever noted 09/07
COVID Flu Neg
blood cx's NTD
Repeat Urinalysis neg for UTI
mild associate Leukocytosis noted in am
empiric Ceftriaxone started, flagyl added as per GI
Fever White count since resolved, last fever 09/08/23
Procalcitonin negative, will continue antibiotics while in the hospital, no need to continue upon discharge
#OBI possibly cardiorenal (less likely) vs dehydration/hypotension (more likely)
bladder renal US appreciated b/l renal cysts up to 6 cm, incompletely distended bladder, no hydronephrosis abnormal solid or complex renal masses, no renal calculi
Initial Cr 1.7 improved to 1.2 without IVF or diuresis, increased to 1.5 following restart lasix since placed on hold. Kidney function improving off Lasix
Patient now eating, resume Lasix
#Hypernatremia
Resolved status post IV fluids
Urinalysis not suggestive of UTI though bacteria present
Urine cx no significant growth
#BPH cont finasteride
#Hypothyroidism
Continue Synthroid
Recent TSH wnl
#Gastroesophageal reflux disease
Continue PPI
DVT prophylaxis�Eliquis
Updated son on phone 09/11
Total time spent to see the patient on the floor, examine the patient, review data and lab results, discuss treatment plan with patient, nursing staff around 51 minutes.
Physical Exam
General: No pallor, cyanosis, or jaundice.
HEENT: Throat clear. Normocephalic atraumatic. Possible left side facial droop vs ptosis
NECK: Supple. No JVD Carotid Bruits
RESPIRATORY: Lungs clear to auscultation. No crackles wheezes stridor
CVS: S1, S2 normal. RRR. No murmur, rub or gallop.
ABDOMEN: Soft, non-tender. No distension. BS+/normal.
EXTREMITIES: No peripheral cyanosis or edema.
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 Left sided weakness
Anticipated Discharge: Within 24 hours
Subjective/Interval History
-
Date of Service: September 12, 2023
Patient remains intermittently confused. He is off oxygen. No fever, no vomiting.
Objective Data
-
Labs:
Laboratory Results
09/12/23
06:00
WBC 5.8
Hgb 7.8 L
Hct 25.2 L
Plt Count 94 L
Sodium 140
Potassium 3.6
Chloride 117 H
Carbon Dioxide 19 L
BUN 31 H
Creatinine 1.0
Glucose 93
Calcium 7.8 L
Total Bilirubin 1.6 H
AST 22
ALT 19
Alkaline Phosphatase 67
Vital Signs:
Vital Signs
Temp Pulse Resp BP Pulse Ox
98.4 F 71 18 101/74 94
09/12/23 07:00 09/12/23 07:00 09/12/23 07:00 09/12/23 07:00 09/12/23 07:00
I&O
09/11/23 09/12/23 09/13/23
06:59 06:59 06:59
Intake Total 1050 / 1050 960 / 960
Output Total 600 / 600 1100 / 1100
Balance 450 / 450 -140 / -140
[2023-09-12 09:05] LABS: Hemoglobin 7.9 g/dL (13.0-18.0); Mean Corp Hgb Conc. 31.6 g/dL (33.0-37.0); Mean Corpuscular Hgb 26.2 pg (27.0-31.0); Mean Corpuscular Volume 82.8 fL (80.0-94.0); Mean Platelet Volume 10.2 fL (7.4-10.4); Platelet Count 94 10^3/uL (130-400); Red Blood Cell Count 3.02 10^6/uL (4.70-6.10); Red Cell Dist. Width 18.6 % (11.5-14.5); White Blood Cell Count 5.6 10^3/uL (4.8-10.8)
[2023-09-12 09:29] LABS: Total Iron Binding Capacity 176 ug/dl (261-462)
[2023-09-12 09:33] LABS: Iron < 20 ug/dl (49-181)
[2023-09-12] MEDS: ROCEPHIN 2000 MG IV (10:11)
[2023-09-12] MEDS: ASPIR LOW (ENTERIC COATED) 81 MG PO (10:12)
[2023-09-12] MEDS: DUPHALAC/CHRONULAC 20 GRAMS PO ×2 (10:12→22:05)
[2023-09-12] MEDS: LASIX 40 MG PO (10:12)
[2023-09-12] MEDS: PROSCAR 5 MG PO (10:12)
[2023-09-12] MEDS: ELIQUIS 5 MG PO ×2 (10:12→22:04)
[2023-09-12] MEDS: STERILE WATER FOR INJECTION 20 ML IV (10:13)
[2023-09-12] MEDS: DESENEX/MITRAZOL/ZEASORB 1 APPLIC TOPICAL ×2 (10:13→22:05)
[2023-09-12 10:29] LABS: Folate 8.2 ng/ml (2.76-20); Vitamin B12 > 1000 pg/ml (239-931)
[2023-09-12 11:00] VITALS: BP 101/54
[2023-09-12 11:04] LABS: Reticulocyte Count 3.3 % (0.4-2.8)
--- NOTE | 2023-09-12 11:10 | CM ---
CM reviewed pt with Dr Enamorado- not ready to dc today due to hgb
Update sent to [facility] admission
Bed continues to be available for pt on dc/ private pay bedhold
Discharge Disposition- return [facility]
--- NOTE | 2023-09-12 12:37 | W.PN.PUL3 ---
Today's Communication / Plan
-
Continue Symbicort and Spiriva --> DC home on Trelegy
Antibiotics for suspected UTI
Maintain net negative fluid balance as tolerated
CXR done today shows persistent mild interstitial edema but improved compared to prior; bnp also improving;
I will arrange for outpatient office follow-up with [facility] with Dr. Chawla for his COPD and multiple pulmonary nodules.
Pulmonary service will now sign off. Please reconsult if there are any additional questions/concerns, or if patient's respiratory status deteriorates.
Assessment
-
Assessment: 83-year-old male former tobacco smoker (quit in 1999) with a past medical history of panlobular emphysema/COPD, A-fib on Eliquis, PAD s/p RLE bypass, CAD s/p DCCV on Eliquis, history of COVID-19, chronic rhinitis and history of HFmrEF
(LVEF: 45-50% via TTE on 08/29/2023) who p/w AMS. Patient recently hospitalized here at from 08/28 � 09/04/2023 due to AMS, and found to have multiple nonhemorrhagic acute/subacute L-sided CVA on brain MRI, diagnosed on 08/30/2023. He was DC'd to
[facility] but on AM of arrival he was difficult to arouse and was confused, per staff. Here in the ER he was afebrile to 97.7 �F, pulse rate 71, RR: 18, saturating 100% on room air, and BP 141/119. Labs showed chronic anemia 9.2, chronic
thrombocytopenia 109, OBI with creatinine 1.7, elevated total bilirubin to 2.7, proBNP 5450 and urinalysis was suggestive of UTI with trace leukocyte esterase and moderate bacteria. He was admitted to the hospitalist service and started on
antibiotics for possible UTI. CT head showed no acute intracranial abnormality. Initial CXR showed acute interstitial edema. Abdominal ultrasound obtained given patient's elevated bilirubin, and US showed cholelithiasis with top normal CBD with
no intrahepatic biliary dilatation. There is also hepatosplenomegaly. GI consulted. The patient initially required no oxygen and during hospital stay has required 3-4 L/min of nasal cannula. On evening of 09/06, pt spiked fever to 101.3. Given
patient's diagnosis of COPD and now oxygen requirements, pulmonary service consulted for additional recommendations.
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
Anemia, MDD, Hypothyroidism, personal history of COVID-19 (05/2020)
Impression:
#Acute respiratory failure with hypoxia on supplemental oxygen - likely due to acute HFmrEF exacerbation with acute interstitial/pulmonary edema
#Acute HFmrEF exacerbation
#Acute kidney injury - improving
#Hyperbilirubinemia with cholelithiasis - negative MRCP with no definite evidence of biliary ductal dilatation (however limited by metal artifact)
#Abnormal UA with trace leukocyte esterase and moderate bacteria, suggestive of UTI
#Chronic anemia/thrombocytopenia - counts are stable
#Mild COPD/emphysema with severe gas exchange capacity defect as per PFTs (DLco: 24% on PFT from 08/13/2023)
#Moderate pHTN
#Multiple pulmonary nodules - largest nodule is approximately 9mm nodule seen on recent CT chest from 06/12/2023 - it is within the right oblique fissure - this is consistent with an intra-fissural lymph node and does not need follow up; it appears
his 2nd largest nodule is in RLL measuring 6.6mm - this should be monitored closely
#AMS likely due to TME in setting of OBI with suspected UTI in a patient with known CVA at risk for vascular dementia
Plan:
- Maintain net negative fluid balance as tolerated (he is net (-) 140cc last 24 hrs
- He has now been weaned off O2 and is on room air; maintain SpO2 between >88% and <96%
- Elevated T. bili with cholelithiasis and top-normal CBD workup as per GI - negative MRCP with no biliary ductal dilatation seen; continue to trend LFTs
- Continue with Abx for possible UTI - would complete 7 days; Follow up blood and urine Cx
- Continue inhalers with Symbicort 80mcg and Spiriva (rinse mouth after using ICS-containing MDI inhaler)
- Aspiration precautions
- Avoid narcotics or any sedating medications
- Incentive spirometer encouraged
- prn nebulized bronchodilators
- Trend sCr and UOP
- Trend BNP
- Replete electrolytes with K>4, Mg>2
- Maintain euglycemia with goal BG >100 and <180
- DVT ppx
Disposition efforts --> PT/OT both recommend skilled rehab upon discharge
Patient breathing comfortably on room air. Disposition efforts are ongoing. I will arrange for outpatient office follow-up with [facility] with Dr. Chawla for his COPD and multiple pulmonary nodules.
Pulmonary service will now sign off. Thank you for allowing us to be involved in the care of this patient. Please reconsult if there are any additional questions/concerns, or if patient's respiratory status deteriorates.
Total time spent today was 35 minutes for this encounter. Time includes reviewing laboratory test/imaging results, reviewing pertinent medical records, obtaining and reviewing medical history, performing an appropriate exam, ordering medications,
tests and procedures. Time also includes documentation of this encounter, coordinating patient care and communicating with other healthcare professionals. Total time does not include separately billed tests performed on this date of service.
Data:
CXR 09-12-2023: Findings suggest persistent mild congestive heart failure, though overall, the heart size has improved.
CXR 09-06-2023:
Mild interstitial edema, cardiomegaly, findings consistent with CHF. No focal airspace process.
There is a 9 mm nodule right mid to lower lung zone. Prominent hilar regions suggest adenopathy. This should be correlated with the report from the outside chest CT scan dated 06/12/2023.
Abdominal US 09-07-2023:
Cholelithiasis with top normal common bile duct and no intrahepatic biliary dilatation
Hepatosplenomegaly
Bilateral renal cysts
MRCP 09-11-2023:
Limited by metal artifact as result of aortic stent graft.
Possible cholelithiasis.
No definite evidence to suggest biliary ductal dilatation, though limited by metal artifact. Nondiagnostic evaluation of the pancreas.
Consider further evaluation and follow-up ultrasound and/or CT.
Splenomegaly.
Renal cysts.
Questionable partially visualized pulmonary nodule in the anterior right lung base.
TTE 08-29-2023:
Normal LV size with mildly reduced systolic function.
LVEF is 45 to 50% by visual assessment.
Mild diffuse global hypokinesis.
Dilated RV with mildly reduced systolic function.
Mild mitral regurgitation.
Mild to moderate tricuspid regurgitation.
Estimated pulmonary artery pressure of 53 mmHg, assuming a right atrial
pressure of 3 mmHg.
Compared to prior from April 09, 2023, MR is mild from mild to moderate and
TR is mild to moderate from moderate to severe. Estimated PASP is mild to
moderately elevated compared to severely elevated on previous study.
Subjective Data
-
Date of Service:
Date of Service: September 12, 2023
Chief Complaint: Pulmonary Follow Up
Subjective:
Patient seen this morning. He is on room air breathing comfortably. No acute events reported overnight. He denies chest pain, shortness breath, fevers or chills
Review of Systems
General: Other (Negative unless mentioned above)
Objective Data
Data Reviewed
Vital Signs / I&O / Oxygen:
Vital Signs
Temp Pulse Resp BP Pulse Ox
97.9 F 58 18 101/54 93
09/12/23 11:00 09/12/23 11:00 09/12/23 11:00 09/12/23 11:00 09/12/23 11:00
Intake and Output
09/11/23 09/12/23 09/13/23
06:59 06:59 06:59
Intake Total 1050 / 1050 960 / 960
Output Total 600 / 600 1100 / 1100
Balance 450 / 450 -140 / -140
SaO2 93
Nasal Cannula flow liters per 3
minute
Physical Exam
General: Respiratory Distress (negative) and Comfortable
HEENT: Normocephalic and Anicteric
Cardiovascular: S1-S2 and Peripheral Edema (Negative)
Respiratory: Wheeze (Negative), Crackles (Negative), Rhonchi (Negative), Non-Labored Respirations and Other (Coarse breath sounds heard bilaterally)
GI: Soft, Non Distended and Non Tender
Neurology: Awake and Alert
Skin: Warm and Dry
Labs/Micro/Reports
Lab Data
09/12/23 08:49
09/12/23 06:00
Microbiology
09/08/23 09:05 Blood/Venous Blood Culture - Preliminary
No Growth in 4 days- Final report to follow
09/08/23 07:54 Blood/Venous Blood Culture - Preliminary
No Growth in 4 days- Final report to follow
[2023-09-12 15:00] VITALS: BP 108/64
[2023-09-12 19:55] VITALS: BP 111/62
[2023-09-12] MEDS: SEROQUEL 25 MG PO (22:04)
[2023-09-12] MEDS: MELATONIN 3 MG PO (22:05)
[2023-09-12] MEDS: LIPITOR 40 MG PO (22:05)
[2023-09-12] MEDS: PROTONIX 40 MG PO (22:05)
[2023-09-12 23:18] VITALS: BP 101/64
[2023-09-13] VITALS (7 sets, daily range): BP systolic 91–124; BP diastolic 53–95; PULSE 79; O2SAT 99; BMI 27.2
[2023-09-13 06:41] LABS: Hematocrit 27.4 % (39.0-52.0); Hemoglobin 8.3 g/dL (13.0-18.0); Mean Corp Hgb Conc. 30.3 g/dL (33.0-37.0); Mean Corpuscular Hgb 25.8 pg (27.0-31.0); Mean Corpuscular Volume 85.1 fL (80.0-94.0); Platelet Count 92 10^3/uL (130-400); Red Blood Cell Count 3.22 10^6/uL (4.70-6.10); Red Cell Dist. Width 18.6 % (11.5-14.5); White Blood Cell Count 5.1 10^3/uL (4.8-10.8)
[2023-09-13] MEDS: SYMBICORT 80/4.5 MCG INHALER 2 PUFF INH ×2 (07:41→20:59)
[2023-09-13] MEDS: SPIRIVA RESPIMAT 2.5 MCG 2 PUFF INH (07:41)
[2023-09-13 07:47] LABS: ALT (SGPT) 17 U/L (0-50); AST (SGOT) 22 U/L (17-59); Albumin 2.6 g/dl (3.5-5.0); Alkaline Phosphatase 69 U/L (38-126); Blood Urea Nitrogen 31 mg/dl (9-20); Calcium 8.1 mg/dl (8.4-10.2); Carbon Dioxide 19 mmol/L (22-30); Chloride 119 mmol/L (98-107); Estimated Creatinine Clearance 48 ml/min; Glucose 89 mg/dl (70-99); Potassium 3.8 mmol/L (3.5-5.1); Sodium 142 mmol/L (135-145); Total Bilirubin 1.7 mg/dl (0.2-1.3); Total Protein 6.3 g/dl (6.3-8.2); eGFR > 60.00
--- NOTE | 2023-09-13 09:01 | CON.ONC ---
Addendum entered and electronically signed by Stephen Oviedo DO 09/13/23 16:25:
Chart reviewed and patient examined independently. BicytopeniaSuspect primarily consumptive on dual anticoagulation reticulocytosis with suggest intact marrow response. Suspect underlying anemia of chronic disease contributing. Intermittent
hematuria is possible site of active bleeding. Monitor substrates and CBC.
Original Note:
Impression
Impression
History of recent CVA
Change in mental status/TME
Possible UTI
Hypotension
Recent falls
Reticulocytosis
Hematuria
Acute on chronic anemia
Ecchymosis
Hyperbilirubinemia
Plan
Plan
09/12 Hgb 8.3, Hct 27.4, PLT 92
CBC with diff daily
Transfuse as needed to maintain Hgb >7, PLT >20 (or >50 with active bleeding)
Monitor hematuria on Eliquis
Hematest all stools
Iron panel indicative of chronic inflammation
IV iron is not recommended in the setting of acute infection with possible UTI
Additional labs ordered and pending
Folic acid supplement
Supportive care
We will follow.
Patient History
History of Present Illness
Deuce Velázquez is an 83 year old male who has been admitted twice in the past 2-3 weeks for change in mental status. He had a recent CVA and was discharged to [facility] where he suffered an unwitnessed fall and hypotension with SBPs in the 80s.
He is managed on Eliquis and Aspirin.
Past-Medical/Surgical History
Recent CVA
Afib on Eliquis
CAD w/ stents
COPD
CHF
BPH
Hypothyroidism
Hypercholesterolemia
Bowel resection
Hernia repair
Former smoker
Patient Medication
�Medication �Instructions �Recorded �Confirmed �Last Taken �Type
finasteride 5 mg tablet 5 mg PO DAILY Urinary issue 06/07/20 09/06/23 09/05/23 History
levothyroxine 50 mcg tablet 50 mcg PO DAILY Thyroid 06/07/20 09/06/23 09/06/23 History
acetaminophen 325 mg tablet 650 mg PO Q4HPRN PRN mild 08/29/23 09/06/23 09/06/23 History
(Tylenol) pain/fever>100
apixaban 5 mg tablet (Eliquis) 5 mg PO BID Blood Clot 08/29/23 09/06/23 09/05/23 History
Prevention/Tx
atorvastatin 40 mg tablet 40 mg PO HS High Cholesterol 08/29/23 09/06/23 09/05/23 History
fluticasone fur. 100 mcg-umeclid 1 inh inhalation R HS 08/29/23 09/06/23 09/05/23 History
62.5 mcg-vilant 25 mcg Lung/Breathing Issues
inhalat.powder (Trelegy Ellipta)
furosemide 40 mg tablet 40 mg PO DAILY Fluid 08/29/23 09/06/23 09/05/23 History
Retention/Swelling
pantoprazole 40 mg tablet,delayed 40 mg PO HS Gastrointestinal Issue 08/29/23 09/06/23 09/05/23 History
release
sacubitril 24 mg-valsartan 26 mg 1 tab PO BID Heart Failure 08/29/23 09/06/23 09/05/23 History
tablet (Entresto)
aspirin 81 mg tablet,delayed 81 mg PO DAILY #21 tabs 09/04/23 09/06/23 09/05/23 Rx
release
bisacodyl 10 mg rectal suppository 10 mg ID DAILY PRN if MOM 09/06/23 09/06/23 Unknown History
(Dulcolax (bisacodyl)) ineffective, give on day 5 of no BM
magnesium hydroxide 400 mg/5 mL 30 ml PO DAILY PRN if no BM x 4 09/06/23 09/06/23 Unknown History
oral suspension (Milk of Magnesia) days
melatonin 3 mg tablet 3 mg PO HS PRN sleep 09/06/23 09/06/23 09/06/23 History
sodium phosphates 19 gram-7 118 ml ID DAILYPRN PRN if dulcolax 09/06/23 09/06/23 Unknown History
gram/118 mL enema (Fleet Enema) supp ineffective, on day 6 of no BM
Active Medications
Generic Name Dose Route Start Last Admin
Trade Name Freq PRN Reason Stop Dose Admin
Acetaminophen 650 mg 09/06/23 20:54
Acetaminophen 325 Mg Tablet PO 10/04/23 20:53
Q4HPRN PRN
mild pain/fever>100
Acetaminophen 650 mg 09/08/23 00:18 09/08/23 01:12
Acetaminophen 650 Mg Rectal Suppository RECTAL 10/06/23 00:17 650 mg
Q4HPRN PRN Administration
fever> 100.5
Apixaban 5 mg 09/09/23 20:00 09/12/23 22:04
Apixaban (Eliquis) 5 Mg Tablet PO 10/04/23 19:59 5 mg
BID EL Administration
Aspirin 81 mg 09/07/23 08:00 09/12/23 10:12
Aspirin 81 Mg (Enteric Coated) Tablet PO 10/05/23 07:59 81 mg
DAILY EL Administration
Atorvastatin Calcium 40 mg 09/06/23 22:00 09/12/23 22:05
Atorvastatin (Lipitor) 40 Mg Tablet PO 10/04/23 21:59 40 mg
HS EL Administration
Bisacodyl 10 mg 09/06/23 20:54
Bisacodyl 10 Mg Rectal Suppository RECTAL 10/04/23 20:53
DAILY PRN
if MOM ineffective, give day 5
Budesonide/Formoterol Fumarate 2 puff 09/07/23 08:00 09/13/23 07:41
Symbicort Inhaler 80/4.5 INH 10/05/23 07:59 2 puff
R BID EL Administration
Protocol
Ceftriaxone Sodium 2,000 mg 09/08/23 08:00 09/12/23 10:11
Ceftriaxone 2,000 Mg/20 Ml Vial IV 09/14/23 08:01 2,000 mg
Q24H EL Administration
Finasteride 5 mg 09/07/23 08:00 09/12/23 10:12
Finasteride 5 Mg Tablet PO 10/05/23 07:59 5 mg
DAILY EL Administration
Furosemide 40 mg 09/11/23 15:15 09/12/23 10:12
Furosemide 40 Mg Tablet PO 10/09/23 15:14 40 mg
DAILY EL Administration
Lactulose 20 grams 09/08/23 20:00 09/12/23 22:05
Lactulose Solution (20 Grams/30 Ml) 30 Ml Cup PO 10/06/23 19:59 20 grams
BID EL Administration
Levothyroxine Sodium 50 mcg 09/07/23 06:00 09/12/23 05:44
Levothyroxine 50 Mcg Tablet PO 10/05/23 05:59 50 mcg
DAILY@0600 EL Administration
Melatonin 3 mg 09/07/23 22:00 09/12/23 22:05
Melatonin 3 Mg Tablet PO 10/05/23 21:59 3 mg
HS EL Administration
Miconazole Nitrate 0 applic 09/10/23 08:00 09/12/23 22:05
Miconazole Powder Bottle TOPICAL 10/08/23 07:59 1 applic
BID EL Administration
Pantoprazole Sodium 40 mg 09/06/23 22:00 09/12/23 22:05
Pantoprazole 40 Mg Delayed Release Tablet PO 10/04/23 21:59 40 mg
HS EL Administration
Quetiapine Fumarate 25 mg 09/07/23 22:00 09/12/23 22:04
Quetiapine 25 Mg Tablet PO 10/05/23 21:59 25 mg
HS PRN Administration
agitation insomnia
Sodium Chloride 0 flush 09/06/23 22:00 09/06/23 23:25
Sodium Chloride 0.9% (Flush) Syringe IV 10/04/23 21:59 2 flush
PER PROTOCOL EL Administration
Sterile Water 20 ml 09/08/23 08:00 09/12/23 10:13
Sterile Water For Injection 20 Ml Vial IV 10/06/23 07:59 20 ml
Q24H EL Administration
Tiotropium [place] 2 puff 09/07/23 08:00 09/13/23 07:41
Tiotropium (Spiriva Respimat) 2.5 Mcg Inhaler INH 10/05/23 07:59 2 puff
R DAILY EL Administration
Protocol
Review of Systems
-
Unable to obtain full review of systems at this time due to: Acuity
Physical Exam
-
Patient did not arouse to voice or touch for exam. nursing at bedside. condom catheter in place with bloody urine in ferreira bag.
General: Appears Chronically Ill; Negative Conversant
Cardiology: Irregular Rate/Rhythm
Pulmonary: Other (mouth breathing)
Genito-Urinary: Bloody Urine
Skin: Other (scattered echhymosis)
Psych: Confused
Labs
Lab Results
WBC 5.1 10^3/uL (4.8-10.8) 09/13/23 06:25
RBC 3.22 10^6/uL (4.70-6.10) L 09/13/23 06:25
Hgb 8.3 g/dL (13.0-18.0) L 09/13/23 06:25
Hct 27.4 % (39.0-52.0) L 09/13/23 06:25
MCV 85.1 fL (80.0-94.0) 09/13/23 06:25
MCH 25.8 pg (27.0-31.0) L 09/13/23 06:25
MCHC 30.3 g/dL (33.0-37.0) L 09/13/23 06:25
RDW 18.6 % (11.5-14.5) H 09/13/23 06:25
Plt Count 92 10^3/uL (130-400) L 09/13/23 06:25
MPV 10.0 fL (7.4-10.4) 09/13/23 06:25
Abs Immat Gran (auto) 0.1 10^3/uL (0-0.05) H 09/06/23 10:53
Absolute Neuts (auto) 8.7 10^3/uL (1.4-6.5) H 09/06/23 10:53
Absolute Lymphs (auto) 0.7 10^3/uL (1.2-3.4) L 09/06/23 10:53
Absolute Monos (auto) 0.4 10^3/uL (0.1-0.6) 09/06/23 10:53
Absolute Eos (auto) 0.0 10^3/uL (0-0.7) 09/06/23 10:53
Absolute Basos (auto) 0.0 10^3/uL (0-0.2) 09/06/23 10:53
Immature Gran % 0.7 % (0-0.5) H 09/06/23 10:53
Neutrophils % 87.1 % (42.2-75.2) H 09/06/23 10:53
Lymphocytes % 7.4 % (20.5-51.1) L 09/06/23 10:53
Monocytes % 4.4 % (1.7-9.3) 09/06/23 10:53
Eosinophils % 0.1 % (0-6) 09/06/23 10:53
Basophils % 0.3 % (0-2) 09/06/23 10:53
Creatinine 1.1 mg/dL (0.7-1.3) 09/13/23 06:25
09/06/[address]: No acute intracranial process.Moderate diffuse volume loss. Moderate leukoaraiosis. No significant interval change.Minimal chronic sinus disease.
09/07/23 Renal US: Bilateral renal cysts measuring up to 6 cm. Incompletely distended urinary bladder
09/07/23 Abdominal US: Cholelithiasis with top normal common bile duct and no intrahepatic biliary dilatation. Hepatosplenomegaly. Bilateral renal cysts
09/11/23 Abdomen MRI: Limited by metal artifact as result of aortic stent graft.Possible cholelithiasis.No definite evidence to suggest biliary ductal dilatation, though limited by metal artifact. Nondiagnostic evaluation of the pancreas.Consider
further evaluation and follow-up ultrasound and/or CT. Splenomegaly. Renal cysts.Questionable partially visualized pulmonary nodule in the anterior right lung base.
09/12/23 CXR: Findings suggest persistent mild congestive heart failure, though overall, the heart size has improved.
Vital Signs
Vital Signs
Temp Pulse Resp BP Pulse Ox
98.2 F 81 15 108/67 96
09/13/23 07:45 09/13/23 07:45 09/13/23 07:45 09/13/23 07:45 09/13/23 07:45
--- NOTE | 2023-09-13 09:02 | W.PN.HOSP.TC ---
Today's Communication/Plan
-
Stable for discharge to [facility]
Assessment / Plan
Assessment / Plan
IMPRESSION:
83M COPD, A-fib on Eliquis, recent CVA, HFpEF (recovered EF) presents from [place] d/t concerns low blood pressure confusion fall. Patient was recently discharged from this facility 3 days ago following hospitalization for stroke. Following transfer to
[facility] blood pressure was noted periodically low systolic 80s. Patient also seemed confused, though possible baseline given aphasia. Patient was found sitting on the floor sparking concerns for unwitnessed fall prompting return to ED for
evaluation. CT head noted no acute abn's. Patient was hypotensive 80s since improved 90s without intervention. Afebrile stable respiratory status room air. Labs were notable for OBI Cr 1.7, baseline 1.0-1.1. T bili elevation and BNP elevation
5000s though improved from prior Apr 2023. Weight gain was noted. 85k. Patient was 79.407 kg on discharge 3 days ago. CXR noted mild interstitial edema cardiomegaly.
PLAN:
#Worsening acute on chronic normocytic anemia
Hemoglobin is 8.3 today today, MCV normal
Hemoglobin on 08/29/2023 was 9.9
He is currently on Eliquis and aspirin, nursing staff denies black or bloody stools, no hematuria
Appreciate hematology input, due to disease of chronic inflammation
Stable for discharge
#Acute Encephalopathy
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
#Hx CVA
Daily weight I/O fluid restriction diet 50 oz
Cardio eval appreciated cont hold Entresto, Lasix briefly resumed (held again due to worsening obi as below)
CT head notes no new acute abn's
Cont home Eliquis ASA (Eliquis to be reduced to 2.5 when Cr 1.5 or higher)
Neuro eval appreciated likely Toxic Metabolic Encephalopathy no further brain imaging recommended at this time, stop stroke scales
Psych eval appreciated prn seroquel HS - has not required
From [facility] (was there a few days), lives at home w/ son and DIL
Plan for discharge back to short-term rehab today
#Acute on chronic HFmrEF
Resolved, back on oral Lasix
#Acute hypoxic respiratory insufficiency
#COPD
Episode Hypoxia/low PaO2 noted on ABG during episode confusion delirium agitation overnight
ABG note respiratory alkalosis with compensated Metabolic acidosis
No wheezing/crackles noted
Pulmonology following, recommend continuing inhalers
Was requiring 3 L, now on room air
It was noted that he was breathing through his mouth, unclear if he was actually getting the 3 L
Speech Eval appreciated
IDDSI lvl 6 soft and bite sized diet, thin liquids
medications whole in puree
Aspiration precautions
CXR notes new 9 mm nodule right mid to lower lung zone, outpt CT and follow up with Pulm recommended
# Acute on chronic hyperbilirubinemia
Abd US notes cholelithiasis with top normal common bile duct/no intrahepatic biliary dilation
Hepatosplenomegaly
Abd exam benign no acute tenderness noted
GI eval appreciated, abdominal MRI negative for CBD dilatation
Bilirubin downtrending to 1.6, about his baseline
Fever noted 09/07
COVID Flu Neg
blood cx's NTD
Repeat Urinalysis neg for UTI
mild associate Leukocytosis noted in am
empiric Ceftriaxone started, flagyl added as per GI
Fever White count since resolved, last fever 09/08/23
Procalcitonin negative, will continue antibiotics while in the hospital, no need to continue upon discharge
#OBI possibly cardiorenal (less likely) vs dehydration/hypotension (more likely)
bladder renal US appreciated b/l renal cysts up to 6 cm, incompletely distended bladder, no hydronephrosis abnormal solid or complex renal masses, no renal calculi
Initial Cr 1.7 improved to 1.2 without IVF or diuresis, increased to 1.5 following restart lasix since placed on hold. Kidney function improving off Lasix
Patient now eating, resume Lasix
#Hypernatremia
Resolved status post IV fluids
Urinalysis not suggestive of UTI though bacteria present
Urine cx no significant growth
#BPH cont finasteride
#Hypothyroidism
Continue Synthroid
Recent TSH wnl
#Gastroesophageal reflux disease
Continue PPI
DVT prophylaxis�Eliquis
Updated son on phone 09/12
Total time spent to see the patient on the floor, examine the patient, review data and lab results, discuss treatment plan with patient, nursing staff around 51 minutes.
Physical Exam
General: No pallor, cyanosis, or jaundice.
HEENT: Throat clear. Normocephalic atraumatic. Possible left side facial droop vs ptosis
NECK: Supple. No JVD Carotid Bruits
RESPIRATORY: Lungs clear to auscultation. No crackles wheezes stridor
CVS: S1, S2 normal. RRR. No murmur, rub or gallop.
ABDOMEN: Soft, non-tender. No distension. BS+/normal.
EXTREMITIES: No peripheral cyanosis or edema.
CLINICAL OPERATIONS MANAGER: Awake Conversant but confused Aphasic. Left sided weakness
Anticipated Discharge: Today
Subjective/Interval History
-
Date of Service: September 13, 2023
No fever, no vomiting.
Objective Data
-
Labs:
Laboratory Results
09/13/23
06:25
WBC 5.1
Hgb 8.3 L
Hct 27.4 L
Plt Count 92 L
Sodium 142
Potassium 3.8
Chloride 119 H
Carbon Dioxide 19 L
BUN 31 H
Creatinine 1.1
Glucose 89
Calcium 8.1 L
Total Bilirubin 1.7 H
AST 22
ALT 17
Alkaline Phosphatase 69
Vital Signs:
Vital Signs
Temp Pulse Resp BP Pulse Ox
98.2 F 81 15 108/67 96
09/13/23 07:45 09/13/23 07:45 09/13/23 07:45 09/13/23 07:45 09/13/23 07:45
I&O
09/12/23 09/13/23 09/14/23
06:59 06:59 06:59
Intake Total 960 / 960 480 / 480
Output Total 1100 / 1100 600 / 600
Balance -140 / -140 -120 / -120
[2023-09-13] MEDS: DUPHALAC/CHRONULAC 20 GRAMS PO ×2 (09:12→20:12)
[2023-09-13] MEDS: ROCEPHIN 2000 MG IV (09:12)
[2023-09-13] MEDS: STERILE WATER FOR INJECTION 20 ML IV (09:13)
[2023-09-13] MEDS: ELIQUIS 5 MG PO ×2 (09:13→20:12)
[2023-09-13] MEDS: LASIX 40 MG PO (09:13)
[2023-09-13] MEDS: ASPIR LOW (ENTERIC COATED) 81 MG PO (09:13)
[2023-09-13] MEDS: PROSCAR 5 MG PO (09:14)
[2023-09-13] MEDS: DESENEX/MITRAZOL/ZEASORB 1 APPLIC TOPICAL ×2 (09:14→20:12)
[2023-09-13 11:21] LABS: LDH 240 U/L (120-246)
[2023-09-13 11:40] LABS: Fibrinogen 439 MG/DL (199-459)
[2023-09-13] MEDS: FOLVITE 1 MG PO (11:41)
[2023-09-13] MEDS: SYNTHROID PO (11:48)
--- NOTE | 2023-09-13 13:38 | CM ---
Addendum entered by DANIELA Harris 09/13/23 13:44:
For hopeful transfer tomorrow
#for report [phone]
#
Original Note:
Reviewed chart, spoke with attending who stated that patient has been medically cleared for discharge. Placed a call to admissions at [facility] and spoke with Savannah who stated that she will take patient back when he has been off the bed alarm for 24
hrs.
Savannah requested that a new referral be sent. Faxed referral through [facility].
Attending updated. Placed a call to patient's son to update. He expressed understanding. Will update RN.
Plan: Case management will continue to follow and assist with discharge planning. Hopeful transfer to [facility] tomorrow.
--- NOTE | 2023-09-13 15:24 | PTCARENOTE ---
Pt continues to kick left leg out of bed and is a fall risk. Bed alarm remains for safety.
[2023-09-13 17:37] LABS: Transferrin 113 mg/dL (200-360)
[2023-09-13] MEDS: LIPITOR 40 MG PO (21:01)
[2023-09-13] MEDS: MELATONIN 3 MG PO (21:01)
[2023-09-13] MEDS: PROTONIX 40 MG PO (21:01)
--- NOTE | 2023-09-14 04:15 | FALL ---
Description of Fall:
Pt found calmy sitting on knees at bedside after bed alarm alerted staff
Injuries Noted:
none
Action Taken:
SUPPLY CHAIN ASSOCIATE and RN corrugator supervisor notified. Attempted to get a med sitter but none were available
Name of Provider Notified: Rody Dowling
--- NOTE | 2023-09-14 04:39 | W.PN.UPDATE ---
Update Note
Progress Note Update
0430 eval pt at bedside for unwitnessed fall
per rn, bed alarm went off and as staff was running to room pt was already on knees by this bed.
DUFFY. Pt with dementia. Do not see any visible injuries.
vital signs stable
no signs of striking head. and when this provider asked if he hit head he tells me 'no'
[2023-09-14] MEDS: SYNTHROID PO (06:35)
[2023-09-14 07:29] VITALS: BP 118/63
[2023-09-14] MEDS: SYMBICORT 80/4.5 MCG INHALER 2 PUFF INH ×2 (07:39→20:19)
[2023-09-14] MEDS: SPIRIVA RESPIMAT 2.5 MCG 2 PUFF INH (07:39)
[2023-09-14] MEDS: PROSCAR 5 MG PO (08:11)
[2023-09-14] MEDS: FOLVITE 1 MG PO (08:11)
[2023-09-14] MEDS: LASIX 40 MG PO (08:11)
[2023-09-14] MEDS: DUPHALAC/CHRONULAC 20 GRAMS PO ×2 (08:11→21:44)
[2023-09-14] MEDS: ASPIR LOW (ENTERIC COATED) 81 MG PO (08:11)
[2023-09-14] MEDS: ELIQUIS 5 MG PO ×2 (08:11→21:44)
[2023-09-14] MEDS: ROCEPHIN 2000 MG IV (08:13)
[2023-09-14] MEDS: STERILE WATER FOR INJECTION 20 ML IV (08:13)
[2023-09-14] MEDS: DESENEX/MITRAZOL/ZEASORB 1 APPLIC TOPICAL ×2 (08:25→21:44)
[2023-09-14 09:40] LABS: Hematocrit 25.7 % (39.0-52.0); Hemoglobin 7.6 g/dL (13.0-18.0); Mean Corp Hgb Conc. 29.6 g/dL (33.0-37.0); Mean Corpuscular Hgb 25.5 pg (27.0-31.0); Mean Corpuscular Volume 86.2 fL (80.0-94.0); Mean Platelet Volume 9.9 fL (7.4-10.4); Platelet Count 95 10^3/uL (130-400); Red Blood Cell Count 2.98 10^6/uL (4.70-6.10); Red Cell Dist. Width 18.9 % (11.5-14.5); White Blood Cell Count 5.4 10^3/uL (4.8-10.8)
[2023-09-14 09:50] LABS: Blood Urea Nitrogen 31 mg/dl (9-20); Calcium 8.2 mg/dl (8.4-10.2); Carbon Dioxide 21 mmol/L (22-30); Chloride 120 mmol/L (98-107); Estimated Creatinine Clearance 44 ml/min; Glucose 97 mg/dl (70-99); Potassium 3.7 mmol/L (3.5-5.1); Sodium 145 mmol/L (135-145); eGFR 59.63
[2023-09-14 10:50] VITALS: BMI 26.8
--- NOTE | 2023-09-14 11:08 | WOUNDNOTE ---
[facility] RN Note: t/c Spoke with RN Sahra who confirmed no wound from recent fall. Sahra mentioned patient moves legs frequently and kicks off heel relief boots. Suggested switching bed to an air bed (bed with red sign at footboard) and apply bariatric air
chair cushion at foot of bed between mattress and fitted sheet to help cushion heels. Sahra agrees with plan. [facility]. t/c SPD and ordered a bariatric air chair cushion. Care plan to be updated.
--- NOTE | 2023-09-14 11:38 | CM ---
Per [place] in admissions at [facility], patient needs to be off the bed alarm and have no med sitter or 1:1 for at least 24 hrs prior to discharge before he can transfer.
Plan: Case management will continue to follow and assist with discharge planning. [facility] when he is less agitated.
[2023-09-14 12:13] LABS: Hematocrit 28.3 % (39.0-52.0); Hemoglobin 8.4 g/dL (13.0-18.0); Mean Corp Hgb Conc. 29.7 g/dL (33.0-37.0); Mean Corpuscular Hgb 25.6 pg (27.0-31.0); Mean Corpuscular Volume 86.3 fL (80.0-94.0); Mean Platelet Volume 9.8 fL (7.4-10.4); Platelet Count 72 10^3/uL (130-400); Red Blood Cell Count 3.28 10^6/uL (4.70-6.10); White Blood Cell Count 5.3 10^3/uL (4.8-10.8)
[2023-09-14 13:33] VITALS: BP 111/72; PULSE 67
[2023-09-14 13:34] VITALS: BP 111/72; PULSE 67
[2023-09-14 15:00] VITALS: BP 130/68
--- NOTE | 2023-09-14 16:37 | W.PN.HOSP.TC ---
Today's Communication/Plan
-
Remains stable for discharge to short-term rehab
Assessment / Plan
Assessment / Plan
IMPRESSION:
83M COPD, A-fib on Eliquis, recent CVA, HFpEF (recovered EF) presents from [place] d/t concerns low blood pressure confusion fall. Patient was recently discharged from this facility 3 days ago following hospitalization for stroke. Following transfer to
[facility] blood pressure was noted periodically low systolic 80s. Patient also seemed confused, though possible baseline given aphasia. Patient was found sitting on the floor sparking concerns for unwitnessed fall prompting return to ED for
evaluation. CT head noted no acute abn's. Patient was hypotensive 80s since improved 90s without intervention. Afebrile stable respiratory status room air. Labs were notable for OBI Cr 1.7, baseline 1.0-1.1. T bili elevation and BNP elevation
5000s though improved from prior Apr 2023. Weight gain was noted. 85k. Patient was 79.407 kg on discharge 3 days ago. CXR noted mild interstitial edema cardiomegaly.
PLAN:
#Worsening acute on chronic normocytic anemia
Hemoglobin is 8.4 today today, MCV normal
Hemoglobin on 08/29/2023 was 9.9
He is currently on Eliquis and aspirin, nursing staff denies black or bloody stools, no hematuria
Appreciate hematology input, due to disease of chronic inflammation
Stable for discharge
#Acute Encephalopathy
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
#Hx CVA
Daily weight I/O fluid restriction diet 50 oz
Cardio eval appreciated cont hold Entresto, Lasix briefly resumed (held again due to worsening obi as below)
CT head notes no new acute abn's
Cont home Eliquis ASA (Eliquis to be reduced to 2.5 when Cr 1.5 or higher)
Neuro eval appreciated likely Toxic Metabolic Encephalopathy no further brain imaging recommended at this time, stop stroke scales
Psych eval appreciated prn seroquel HS - has not required
From [facility] (was there a few days), lives at home w/ son and DIL
Plan for discharge back to short-term rehab today
#Acute on chronic HFmrEF
Resolved, back on oral Lasix
#Acute hypoxic respiratory insufficiency
#COPD
Episode Hypoxia/low PaO2 noted on ABG during episode confusion delirium agitation overnight
ABG note respiratory alkalosis with compensated Metabolic acidosis
No wheezing/crackles noted
Pulmonology following, recommend continuing inhalers
Was requiring 3 L, now on room air
It was noted that he was breathing through his mouth, unclear if he was actually getting the 3 L
Speech Eval appreciated
IDDSI lvl 6 soft and bite sized diet, thin liquids
medications whole in puree
Aspiration precautions
CXR notes new 9 mm nodule right mid to lower lung zone, outpt CT and follow up with Pulm recommended
# Acute on chronic hyperbilirubinemia
Abd US notes cholelithiasis with top normal common bile duct/no intrahepatic biliary dilation
Hepatosplenomegaly
Abd exam benign no acute tenderness noted
GI eval appreciated, abdominal MRI negative for CBD dilatation
Bilirubin downtrending to 1.6, about his baseline
Fever noted 09/07
COVID Flu Neg
blood cx's NTD
Repeat Urinalysis neg for UTI
mild associate Leukocytosis noted in am
empiric Ceftriaxone started, flagyl added as per GI
Fever White count since resolved, last fever 09/08/23
Procalcitonin negative, status post full course of Rocephin and Flagyl
#OBI possibly cardiorenal (less likely) vs dehydration/hypotension (more likely)
bladder renal US appreciated b/l renal cysts up to 6 cm, incompletely distended bladder, no hydronephrosis abnormal solid or complex renal masses, no renal calculi
Initial Cr 1.7 improved to 1.2 without IVF or diuresis, increased to 1.5 following restart lasix since placed on hold. Kidney function improving off Lasix
Patient now eating, resume Lasix
#Hypernatremia
Resolved status post IV fluids
Urinalysis not suggestive of UTI though bacteria present
Urine cx no significant growth
#BPH cont finasteride
#Hypothyroidism
Continue Synthroid
Recent TSH wnl
#Gastroesophageal reflux disease
Continue PPI
DVT prophylaxis�Eliquis
Updated son on phone 09/12
Total time spent to see the patient on the floor, examine the patient, review data and lab results, discuss treatment plan with patient, nursing staff around 35 minutes.
Physical Exam
General: No pallor, cyanosis, or jaundice.
HEENT: Throat clear. Normocephalic atraumatic. Possible left side facial droop vs ptosis
NECK: Supple. No JVD Carotid Bruits
RESPIRATORY: Lungs clear to auscultation. No crackles wheezes stridor
CVS: S1, S2 normal. RRR. No murmur, rub or gallop.
ABDOMEN: Soft, non-tender. No distension. BS+/normal.
EXTREMITIES: No peripheral cyanosis or edema.
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 Left sided weakness
Anticipated Discharge: Within 24 hours
Subjective/Interval History
-
Date of Service: September 14, 2023
Pt had unwitnessed fall overnight, found on his knees. Knees appear ok. No head injury noted.
Objective Data
-
Labs:
Laboratory Results
09/14/23 09/14/23
08:56 12:04
WBC 5.4 5.3
Hgb 7.6 L 8.4 L
Hct 25.7 L 28.3 L
Plt Count 95 L 72 L D
Sodium 145
Potassium 3.7
Chloride 120 H
Carbon Dioxide 21 L
BUN 31 H
Creatinine 1.2
Glucose 97
Calcium 8.2 L
Vital Signs:
Vital Signs
Temp Pulse Resp BP Pulse Ox
97.7 F 77 18 130/68 91
09/14/23 15:00 09/14/23 15:00 09/14/23 15:00 09/14/23 15:00 09/14/23 15:00
I&O
09/13/23 09/14/23 09/15/23
06:59 06:59 06:59
Intake Total 480 / 480
Output Total 600 / 600 850 / 850
Balance -120 / -120 -850 / -850
--- NOTE | 2023-09-14 19:30 | PTCARENOTE ---
Pt pleasantly confused, yet restless, impulsive and quick. Attempted to attain a medsitter for pt, but none available. requested to be contacted when one becomes available. Nurse planting supervisor aware.
[2023-09-14] MEDS: PROTONIX 40 MG PO (21:44)
[2023-09-14] MEDS: LIPITOR 40 MG PO (21:44)
[2023-09-14] MEDS: MELATONIN 3 MG PO (21:48)
[2023-09-15 02:54] LABS: Haptoglobin 212 mg/dL (30-200)
[2023-09-15 06:00] VITALS: BMI 25.6
[2023-09-15] MEDS: SYNTHROID 50 MCG PO (06:30)
[2023-09-15 06:56] VITALS: BP 104/68
[2023-09-15 07:00] VITALS: BP 117/71
--- NOTE | 2023-09-15 07:57 | W.PN.HOSP.TC ---
Today's Communication/Plan
-
Remained stable for discharge to short-term
Assessment / Plan
Assessment / Plan
IMPRESSION:
83M COPD, A-fib on Eliquis, recent CVA, HFpEF (recovered EF) presents from [place] d/t concerns low blood pressure confusion fall. Patient was recently discharged from this facility 3 days ago following hospitalization for stroke. Following transfer to
[facility] blood pressure was noted periodically low systolic 80s. Patient also seemed confused, though possible baseline given aphasia. Patient was found sitting on the floor sparking concerns for unwitnessed fall prompting return to ED for
evaluation. CT head noted no acute abn's. Patient was hypotensive 80s since improved 90s without intervention. Afebrile stable respiratory status room air. Labs were notable for OBI Cr 1.7, baseline 1.0-1.1. T bili elevation and BNP elevation
5000s though improved from prior Apr 2023. Weight gain was noted. 85k. Patient was 79.407 kg on discharge 3 days ago. CXR noted mild interstitial edema cardiomegaly.
PLAN:
#Worsening acute on chronic normocytic anemia
Hemoglobin is 8.4 on 09/13, MCV normal
Hemoglobin on 08/29/2023 was 9.9
He is currently on Eliquis and aspirin, nursing staff denies black or bloody stools, no hematuria
Appreciate hematology input, due to disease of chronic inflammation
Will give IV iron while in the hospital, discharged on oral iron
Stable for discharge
#Acute Encephalopathy
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
#Hx CVA
Daily weight I/O fluid restriction diet 50 oz
Cardio eval appreciated cont hold Entresto, Lasix briefly resumed (held again due to worsening obi as below)
CT head notes no new acute abn's
Cont home Eliquis ASA (Eliquis to be reduced to 2.5 when Cr 1.5 or higher)
Neuro eval appreciated likely Toxic Metabolic Encephalopathy no further brain imaging recommended at this time, stop stroke scales
Psych eval appreciated prn seroquel HS - has not required
From [facility] (was there a few days), lives at home w/ son and DIL
Plan for discharge back to short-term rehab today
#Acute on chronic HFmrEF
Resolved, back on oral Lasix
#Acute hypoxic respiratory insufficiency
#COPD
Episode Hypoxia/low PaO2 noted on ABG during episode confusion delirium agitation overnight
ABG note respiratory alkalosis with compensated Metabolic acidosis
No wheezing/crackles noted
Pulmonology following, recommend continuing inhalers
Was requiring 3 L, now on room air
It was noted that he was breathing through his mouth, unclear if he was actually getting the 3 L
Speech Eval appreciated
IDDSI lvl 6 soft and bite sized diet, thin liquids
medications whole in puree
Aspiration precautions
CXR notes new 9 mm nodule right mid to lower lung zone, outpt CT and follow up with Pulm recommended
# Acute on chronic hyperbilirubinemia
Abd US notes cholelithiasis with top normal common bile duct/no intrahepatic biliary dilation
Hepatosplenomegaly
Abd exam benign no acute tenderness noted
GI eval appreciated, abdominal MRI negative for CBD dilatation
Bilirubin downtrending to 1.6, about his baseline
Fever noted 09/07
COVID Flu Neg
blood cx's NTD
Repeat Urinalysis neg for UTI
mild associate Leukocytosis noted in am
empiric Ceftriaxone started, flagyl added as per GI
Fever White count since resolved, last fever 09/08/23
Procalcitonin negative, status post full course of Rocephin and Flagyl
#OBI possibly cardiorenal (less likely) vs dehydration/hypotension (more likely)
bladder renal US appreciated b/l renal cysts up to 6 cm, incompletely distended bladder, no hydronephrosis abnormal solid or complex renal masses, no renal calculi
Initial Cr 1.7 improved to 1.2 without IVF or diuresis, increased to 1.5 following restart lasix since placed on hold. Kidney function improving off Lasix
Patient now eating, resume Lasix
#Hypernatremia
Resolved status post IV fluids
Urinalysis not suggestive of UTI though bacteria present
Urine cx no significant growth
#BPH cont finasteride
#Hypothyroidism
Continue Synthroid
Recent TSH wnl
#Gastroesophageal reflux disease
Continue PPI
DVT prophylaxis�Eliquis
Updated son on phone 09/12
Total time spent to see the patient on the floor, examine the patient, review data and lab results, discuss treatment plan with patient, nursing staff around 35 minutes.
Physical Exam
General: No pallor, cyanosis, or jaundice.
HEENT: Throat clear. Normocephalic atraumatic. Possible left side facial droop vs ptosis
NECK: Supple. No JVD Carotid Bruits
RESPIRATORY: Lungs clear to auscultation. No crackles wheezes stridor
CVS: S1, S2 normal. RRR. No murmur, rub or gallop.
ABDOMEN: Soft, non-tender. No distension. BS+/normal.
EXTREMITIES: No peripheral cyanosis or edema.
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 Left sided weakness
Anticipated Discharge: Within 24 hours
Subjective/Interval History
-
Date of Service: September 15, 2023
No acute events overnight. Patient awaiting placement at rehab.
Objective Data
-
Vital Signs:
Vital Signs
Temp Pulse Resp BP Pulse Ox
97.8 F 84 17 104/68 94
09/15/23 06:56 09/15/23 06:56 09/15/23 06:56 09/15/23 06:56 09/15/23 06:56
I&O
09/14/23 09/15/23 09/16/23
06:59 06:59 06:59
Intake Total 160 / 280 120 / 120
Output Total 850 / 850 260 / 260
Balance -850 / -850 -100 / 20 120 / 120
[2023-09-15] MEDS: PROSCAR 5 MG PO (08:09)
[2023-09-15] MEDS: FOLVITE 1 MG PO (08:09)
[2023-09-15] MEDS: ASPIR LOW (ENTERIC COATED) 81 MG PO (08:09)
[2023-09-15] MEDS: LASIX 40 MG PO (08:09)
[2023-09-15] MEDS: ELIQUIS 5 MG PO ×2 (08:10→20:52)
[2023-09-15] MEDS: DUPHALAC/CHRONULAC 20 GRAMS PO ×2 (08:10→20:52)
[2023-09-15] MEDS: STERILE WATER FOR INJECTION IV (08:11)
[2023-09-15] MEDS: DESENEX/MITRAZOL/ZEASORB 1 APPLIC TOPICAL ×2 (08:11→20:52)
[2023-09-15] MEDS: SPIRIVA RESPIMAT 2.5 MCG 2 PUFF INH (08:30)
[2023-09-15] MEDS: SYMBICORT 80/4.5 MCG INHALER 2 PUFF INH ×2 (08:31→19:49)
--- NOTE | 2023-09-15 09:19 | CM ---
Chart reviewed. Patient still requiring medsitter and/or bed alarm. Not able to be placed until off of both for 24 hours. CM to update [facility] once patient is off of these and ready for placement.
[2023-09-15] MEDS: FERRLECIT 110 MG IV (13:54)
[2023-09-15 15:00] VITALS: BP 125/49
--- NOTE | 2023-09-15 17:40 | PTCARENOTE ---
Pt pleasantly confused and cooperative today. Did not trigger bed alarm once. OOB to chair for lunch and dinner. Ambulated to bathroom using walker - unsteady on feet and needs assist x 2.
[2023-09-15] MEDS: PROTONIX 40 MG PO (21:25)
[2023-09-15] MEDS: LIPITOR 40 MG PO (21:25)
[2023-09-15] MEDS: MELATONIN 3 MG PO (21:25)
[2023-09-16 01:00] VITALS: BP 127/67
[2023-09-16] MEDS: SYNTHROID 50 MCG PO (05:02)
[2023-09-16 07:00] VITALS: BP 136/85
[2023-09-16] MEDS: SPIRIVA RESPIMAT 2.5 MCG 2 PUFF INH (08:16)
[2023-09-16] MEDS: SYMBICORT 80/4.5 MCG INHALER 2 PUFF INH ×2 (08:17→18:01)
--- NOTE | 2023-09-16 09:11 | W.PN.HOSP.TC ---
Today's Communication/Plan
-
Awaiting rehab to take him back
Assessment / Plan
Assessment / Plan
IMPRESSION:
83M COPD, A-fib on Eliquis, recent CVA, HFpEF (recovered EF) presents from [facility] d/t concerns low blood pressure confusion fall. Patient was recently discharged from this facility 3 days ago following hospitalization for stroke. Following transfer to
[facility] blood pressure was noted periodically low systolic 80s. Patient also seemed confused, though possible baseline given aphasia. Patient was found sitting on the floor sparking concerns for unwitnessed fall prompting return to ED for
evaluation. CT head noted no acute abn's. Patient was hypotensive 80s since improved 90s without intervention. Afebrile stable respiratory status room air. Labs were notable for OBI Cr 1.7, baseline 1.0-1.1. T bili elevation and BNP elevation
5000s though improved from prior Apr 2023. Weight gain was noted. 85k. Patient was 79.407 kg on discharge 3 days ago. CXR noted mild interstitial edema cardiomegaly.
PLAN:
#Worsening acute on chronic normocytic anemia
Hemoglobin is 8.4 on 09/13, MCV normal
Hemoglobin on 08/29/2023 was 9.9
He is currently on Eliquis and aspirin, nursing staff denies black or bloody stools, no hematuria
Appreciate hematology input, due to disease of chronic inflammation
Will give IV iron while in the hospital, discharge on oral iron
Stable for discharge
#Acute Encephalopathy
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
#Hx CVA
Daily weight I/O fluid restriction diet 50 oz
Cardio eval appreciated cont hold Entresto, Lasix briefly resumed (held again due to worsening obi as below)
CT head notes no new acute abn's
Cont home Eliquis ASA (Eliquis to be reduced to 2.5 when Cr 1.5 or higher)
Neuro eval appreciated likely Toxic Metabolic Encephalopathy no further brain imaging recommended at this time, stop stroke scales
Psych eval appreciated prn seroquel HS - has not required
From [facility] (was there a few days), lives at home w/ son and DIL
Medically stable for discharge to short-term rehab
Rehab will not take him back until he is off bed alarm
#Acute on chronic HFmrEF
Resolved, back on oral Lasix
#Acute hypoxic respiratory insufficiency
#COPD
Episode Hypoxia/low PaO2 noted on ABG during episode confusion delirium agitation overnight
ABG note respiratory alkalosis with compensated Metabolic acidosis
No wheezing/crackles noted
Pulmonology following, recommend continuing inhalers
Was requiring 3 L, now on room air
It was noted that he was breathing through his mouth, unclear if he was actually getting the 3 L
Speech Eval appreciated
IDDSI lvl 6 soft and bite sized diet, thin liquids
medications whole in puree
Aspiration precautions
CXR notes new 9 mm nodule right mid to lower lung zone, outpt CT and follow up with Pulm recommended
# Acute on chronic hyperbilirubinemia
Abd US notes cholelithiasis with top normal common bile duct/no intrahepatic biliary dilation
Hepatosplenomegaly
Abd exam benign no acute tenderness noted
GI eval appreciated, abdominal MRI negative for CBD dilatation
Bilirubin downtrending to 1.6, about his baseline
Fever noted 5/
COVID Flu Neg
blood cx's NTD
Repeat Urinalysis neg for UTI
mild associate Leukocytosis noted in am
empiric Ceftriaxone started, flagyl added as per GI
Fever White count since resolved, last fever 09/08/23
Procalcitonin negative, status post full course of Rocephin and Flagyl
#OBI possibly cardiorenal (less likely) vs dehydration/hypotension (more likely)
bladder renal US appreciated b/l renal cysts up to 6 cm, incompletely distended bladder, no hydronephrosis abnormal solid or complex renal masses, no renal calculi
Initial Cr 1.7 improved to 1.2 without IVF or diuresis, increased to 1.5 following restart lasix since placed on hold. Kidney function improving off Lasix
Patient now eating, resume Lasix
#Hypernatremia
Resolved status post IV fluids
Urinalysis not suggestive of UTI though bacteria present
Urine cx no significant growth
#BPH cont finasteride
#Hypothyroidism
Continue Synthroid
Recent TSH wnl
#Gastroesophageal reflux disease
Continue PPI
DVT prophylaxis�Eliquis
Updated son on phone 09/12
Total time spent to see the patient on the floor, examine the patient, review data and lab results, discuss treatment plan with patient, nursing staff around 35 minutes.
Physical Exam
General: No pallor, cyanosis, or jaundice.
HEENT: Throat clear. Normocephalic atraumatic. Possible left side facial droop vs ptosis
NECK: Supple. No JVD Carotid Bruits
RESPIRATORY: Lungs clear to auscultation. No crackles wheezes stridor
CVS: S1, S2 normal. RRR. No murmur, rub or gallop.
ABDOMEN: Soft, non-tender. No distension. BS+/normal.
EXTREMITIES: No peripheral cyanosis or edema.
DIRECTOR VETERINARY: Awake Conversant but confused Aphasic. Left sided weakness
Anticipated Discharge: Within 24 hours
Subjective/Interval History
-
Date of Service: September 16, 2023
No acute events overnight. No fever, no vomiting.
Objective Data
-
Vital Signs:
Vital Signs
Temp Pulse Resp BP Pulse Ox
97.4 F 82 18 136/85 95
09/16/23 07:00 09/16/23 07:00 09/16/23 07:00 09/16/23 07:00 09/16/23 07:00
I&O
09/15/23 09/16/23 09/17/23
06:59 06:59 06:59
Intake Total 160 / 280 1200 / 1200
Output Total 260 / 260 400 / 400
Balance -100 / 20 800 / 800
[2023-09-16] MEDS: ELIQUIS 5 MG PO ×2 (10:07→19:56)
[2023-09-16] MEDS: DUPHALAC/CHRONULAC 20 GRAMS PO ×2 (10:07→19:56)
[2023-09-16] MEDS: ASPIR LOW (ENTERIC COATED) 81 MG PO (10:07)
[2023-09-16] MEDS: FOLVITE 1 MG PO (10:07)
[2023-09-16] MEDS: LASIX 40 MG PO (10:07)
[2023-09-16] MEDS: DESENEX/MITRAZOL/ZEASORB 1 APPLIC TOPICAL (10:07)
[2023-09-16] MEDS: PROSCAR 5 MG PO (10:07)
[2023-09-16] MEDS: STERILE WATER FOR INJECTION IV (10:08)
--- NOTE | 2023-09-16 10:33 | PTCARENOTE ---
Although patient remains a high fall risk, bed alarm taken off due to placement efforts.
[2023-09-16 15:00] VITALS: BP 126/71
[2023-09-16] MEDS: FERRLECIT 110 MG IV (16:36)
[2023-09-16] MEDS: LIPITOR 40 MG PO (22:48)
[2023-09-16] MEDS: MELATONIN 3 MG PO (22:48)
[2023-09-16] MEDS: PROTONIX 40 MG PO (22:48)
[2023-09-16 22:52] VITALS: BP 133/68
[2023-09-17] MEDS: SYNTHROID 50 MCG PO (05:10)
[2023-09-17] MEDS: DESENEX/MITRAZOL/ZEASORB 1 APPLIC TOPICAL ×2 (05:10→09:17)
--- NOTE | 2023-09-17 05:53 | W.PN.HOSP.TC ---
Today's Communication/Plan
-
discharge
Assessment / Plan
Assessment / Plan
IMPRESSION:
83M COPD, A-fib on Eliquis, recent CVA, HFpEF (recovered EF) presents from [place] d/t concerns low blood pressure confusion fall. Patient was recently discharged from this facility 3 days ago following hospitalization for stroke. Following transfer to
[facility] blood pressure was noted periodically low systolic 80s. Patient also seemed confused, though possible baseline given aphasia. Patient was found sitting on the floor sparking concerns for unwitnessed fall prompting return to ED for
evaluation. CT head noted no acute abn's. Patient was hypotensive 80s since improved 90s without intervention. Afebrile stable respiratory status room air. Labs were notable for OBI Cr 1.7, baseline 1.0-1.1. T bili elevation and BNP elevation
5000s though improved from prior Apr 2023. Weight gain was noted. 85k. Patient was 79.407 kg on discharge 3 days ago. CXR noted mild interstitial edema cardiomegaly.
PLAN:
#Worsening acute on chronic normocytic anemia
Hemoglobin is 8.4 on 09/13, MCV normal
Hemoglobin on 08/29/2023 was 9.9
He is currently on Eliquis and aspirin, nursing staff denies black or bloody stools, no hematuria
Appreciate hematology input, due to disease of chronic inflammation
Will give IV iron while in the hospital, discharge on oral iron
Stable for discharge
#Acute Encephalopathy
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
#Hx CVA
Daily weight I/O fluid restriction diet 50 oz
Cardio eval appreciated cont hold Entresto, Lasix briefly resumed (held again due to worsening obi as below)
CT head notes no new acute abn's
Cont home Eliquis ASA (Eliquis to be reduced to 2.5 when Cr 1.5 or higher)
Neuro eval appreciated likely Toxic Metabolic Encephalopathy no further brain imaging recommended at this time, stop stroke scales
Psych eval appreciated prn seroquel HS - has not required
From [facility] (was there a few days), lives at home w/ son and DIL
Medically stable for discharge to short-term rehab
#Acute on chronic HFmrEF
Resolved, back on oral Lasix
#Acute hypoxic respiratory insufficiency
#COPD
Episode Hypoxia/low PaO2 noted on ABG during episode confusion delirium agitation overnight
ABG note respiratory alkalosis with compensated Metabolic acidosis
No wheezing/crackles noted
Pulmonology following, recommend continuing inhalers
Was requiring 3 L, now on room air
It was noted that he was breathing through his mouth, unclear if he was actually getting the 3 L
Since weaned off to room air
Speech Eval appreciated
IDDSI lvl 6 soft and bite sized diet, thin liquids
medications whole in puree
Aspiration precautions
CXR notes new 9 mm nodule right mid to lower lung zone, outpt CT and follow up with Pulm recommended
# Acute on chronic hyperbilirubinemia
Abd US notes cholelithiasis with top normal common bile duct/no intrahepatic biliary dilation
Hepatosplenomegaly
Abd exam benign no acute tenderness noted
GI eval appreciated, abdominal MRI negative for CBD dilatation
Bilirubin downtrending to 1.6, about his baseline
Fever noted 09/07
COVID Flu Neg
blood cx's NTD
Repeat Urinalysis neg for UTI
mild associate Leukocytosis noted in am
empiric Ceftriaxone started, flagyl added as per GI
Fever White count since resolved, last fever 09/08/23
Procalcitonin negative, status post full course of Rocephin and Flagyl
#OBI possibly cardiorenal (less likely) vs dehydration/hypotension (more likely)
bladder renal US appreciated b/l renal cysts up to 6 cm, incompletely distended bladder, no hydronephrosis abnormal solid or complex renal masses, no renal calculi
Initial Cr 1.7 improved to 1.2 without IVF or diuresis, increased to 1.5 following restart lasix since placed on hold. Kidney function improving off Lasix
Patient now eating, Lasix since resumed
#Hypernatremia
Resolved status post IV fluids
Urinalysis not suggestive of UTI though bacteria present
Urine cx no significant growth
#BPH cont finasteride
#Hypothyroidism
Continue Synthroid
Recent TSH wnl
#Gastroesophageal reflux disease
Continue PPI
DVT prophylaxis�Eliquis
Medically stable for discharge SNF rehab with outpatient follow up recommendations.
Discussed with patient, patient's daughter Rayne, and patient's Son Tomer
Total Time Preparing Discharge ___50____ minutes including examination of the patient, summary of the hospital stay, instructions for continuing care to all relevant caregivers; and preparation of discharge records, prescriptions, and referral
forms if necessary.
Physical Exam
General: No pallor, cyanosis, or jaundice.
HEENT: Throat clear. Normocephalic atraumatic. Facial features symmetric
NECK: Supple. No JVD Carotid Bruits
RESPIRATORY: Lungs clear to auscultation. No crackles wheezes stridor
CVS: S1, S2 normal. RRR. No murmur, rub or gallop.
ABDOMEN: Soft, non-tender. No distension. BS+/normal.
EXTREMITIES: No peripheral cyanosis or edema.
CIRCUIT BREAKER ASSEMBLER: Awake Alert Conversant mild aphasia noted
Anticipated Discharge: Today
Subjective/Interval History
-
Date of Service: September 17, 2023
No acute distress sitting up comfortably in bed. Patient appears well. Mild aphasia remains present. Daughter Rayne present during evaluation.
Objective Data
-
Labs:
Laboratory Results
09/17/23
06:00
WBC Pending
Hgb Pending
Hct Pending
Plt Count Pending
Sodium Pending
Potassium Pending
Chloride Pending
Carbon Dioxide Pending
BUN Pending
Creatinine Pending
Glucose Pending
Calcium Pending
Vital Signs:
Vital Signs
Temp Pulse Resp BP Pulse Ox
97.4 F 71 18 133/68 97
09/16/23 22:52 09/16/23 22:52 09/16/23 22:52 09/16/23 22:52 09/16/23 22:52
I&O
09/15/23 09/16/23 09/17/23
06:59 06:59 06:59
Intake Total 160 / 280 1200 / 1200
Output Total 260 / 260 400 / 400 300 / 300
Balance -100 / 20 800 / 800 -300 / -300
[2023-09-17 06:28] LABS: Hematocrit 26.2 % (39.0-52.0); Hemoglobin 8.3 g/dL (13.0-18.0); Mean Corp Hgb Conc. 31.7 g/dL (33.0-37.0); Mean Corpuscular Hgb 26.3 pg (27.0-31.0); Mean Corpuscular Volume 83.2 fL (80.0-94.0); Mean Platelet Volume 9.6 fL (7.4-10.4); Platelet Count 104 10^3/uL (130-400); Red Blood Cell Count 3.15 10^6/uL (4.70-6.10); Red Cell Dist. Width 19.9 % (11.5-14.5); White Blood Cell Count 5.2 10^3/uL (4.8-10.8)
[2023-09-17 06:44] LABS: Blood Urea Nitrogen 22 mg/dl (9-20); Calcium 8.2 mg/dl (8.4-10.2); Carbon Dioxide 20 mmol/L (22-30); Chloride 113 mmol/L (98-107); Estimated Creatinine Clearance 59 ml/min; Glucose 94 mg/dl (70-99); Magnesium 1.9 mg/dl (1.6-2.3); Phosphorus 3.8 mg/dl (2.5-4.5); Potassium 3.4 mmol/L (3.5-5.1); Sodium 144 mmol/L (135-145); eGFR > 60.00
[2023-09-17 07:00] VITALS: BP 104/84
[2023-09-17] MEDS: SPIRIVA RESPIMAT 2.5 MCG 2 PUFF INH (08:15)
[2023-09-17] MEDS: SYMBICORT 80/4.5 MCG INHALER 2 PUFF INH (08:16)
[2023-09-17 08:50] VITALS: BMI 25.6
[2023-09-17] MEDS: LASIX 40 MG PO (09:16)
[2023-09-17] MEDS: FEOSOL 325 MG PO (09:16)
[2023-09-17] MEDS: PROSCAR 5 MG PO (09:16)
[2023-09-17] MEDS: ASPIR LOW (ENTERIC COATED) 81 MG PO (09:17)
[2023-09-17] MEDS: ELIQUIS 5 MG PO (09:17)
[2023-09-17] MEDS: STERILE WATER FOR INJECTION IV (09:17)
[2023-09-17] MEDS: DUPHALAC/CHRONULAC 20 GRAMS PO (09:17)
[2023-09-17] MEDS: FOLVITE 1 MG PO (09:17)
--- NOTE | 2023-09-17 11:01 | PTOTSP ---
ST Follow-Up
Pt presents with oral, pharyngeal, and esophageal parameters that are safe for PO intake of all solids and liquids. No dysphagia identified at this time.
Recommendations:
- Upgrade diet to REGULAR SOLIDS and continue with THIN LIQUIDS with meds as tolerated.
- General aspiration precautions: HOB upright, assistance with tray set-up, limit distractions.
- BANQUET COORDINATOR to follow-up to ensure diet advancement tolerance.
--- NOTE | 2023-09-17 14:19 | CM ---
Reviewed chart, placed a call to Savannah in admissions at [facility], who stated that she can accept patient today.
#For report, and fax# [phone]
Medical necessity completed and transfer sheet.
[employer] unit operator updated.
Plan: Case management will continue to follow and assist with discharge planning. [facility] today.
[2023-09-17] MEDS: KCL 40 MEQ PO (16:00)
--- NOTE | 2023-09-17 16:08 | W.DCSUMMARY ---
Discharge Summary
Discharge Data
Date of Admission: 09/06/23
Date of Discharge: 09/17/23
-
Pending Results: No
Discharge Plan
-
Patient Disposition: Long Term/SNF
Discharge Diagnosis/Procedures: Toxic metabolic encephalopathy, probable dementia, recent stroke, congestive heart failure, hypoxic respiratory sufficiency, elevated bilirubin, fever, chronic obstructive pulmonary disease, atrial fibrillation,
pulmonary nodule
Condition: Fair
Diet: 2 Gram Sodium
Additional Diets: Mechanical soft diet
Activity: As tolerated
Driving Restrictions: No driving
Blood Work: BMP, and CBC every Sunday
Activity Restrictions/Additional Instructions:
Patient has intermittent waxing waning confusion, likely from undiagnosed dementia.
Suspect this will wax and wane, getting worse when he is outside of his home environment.
Patient has anemia of chronic inflammation, hemoglobin at baseline is 8.0.
Neurology recommends aspirin 81 mg x 4 weeks through 09/25/23.
Please follow-up with pulmonology in the office to monitor your pulmonary nodule.
Please follow-up with your primary care doctor 1 week after you leave rehab, and follow-up with neuropsychiatry for dementia testing.
Wound Care Instructions
Arm skin tears, LLE skin tear-clean with saline, silicone border foam, change q 3 days and prn loosened dressing (add Vaseline gauze prn adherent dressing).
Bilateral heels-no sting barrier wipe (allow to dry), foam dressing, change q 3 days and prn loosened dressing.
Air mattress
Elevate heels off bed; soft heel relief boots as tolerated (i.e. TruVue Lite boots).
Pressure redistributing chair cushion (i.e. Air chair cushion).
Follow up with wound child care supervisor or at wound care center call for an appointment.
Referrals:
Nino Chan PSY [Specified Professional Personl] - in three to four weeks
Ludin Chawla MD [Active] - in two to four weeks
UNKNOWN,NO INTERVIEW [Family Provider] -
Prescriptions:
New
melatonin 3 mg Tablet
3 mg PO HS Qty: 30 0RF
folic acid 1 mg Tablet
1 mg PO DAILY Qty: 0 0RF
ferrous sulfate 325 mg (65 mg iron) tablet
325 mg PO Q OTHER DAY Qty: 30 0RF
Continued
levothyroxine 50 MCG tablet
50 mcg PO DAILY
atorvastatin 40 mg Tablet
40 mg PO HS
Eliquis 5 mg Tablet
5 mg PO BID
Entresto 24-26 mg Tablet
1 tab PO BID
Trelegy Ellipta 100-62.5-25 mcg Blister With Device
1 inh INHALATION R HS
pantoprazole 40 mg tablet,delayed release (DR/EC)
40 mg PO HS
acetaminophen [Tylenol] 325 mg Tablet
650 mg PO Q4HPRN MDD 3000 mg PRN (Reason: mild pain/fever>100)
furosemide 40 mg tablet
40 mg PO DAILY
aspirin 81 mg Tablet,Delayed Release (Dr/Ec)
81 mg PO DAILY Qty: 21 0RF
melatonin 3 mg Tablet
3 mg PO HS PRN (Reason: sleep)
magnesium hydroxide [Milk of Magnesia] 400 mg/5 mL Suspension
30 ml PO DAILY PRN (Reason: if no BM x 4 days)
bisacodyl [Dulcolax (bisacodyl)] 10 mg Suppository
10 mg GA DAILY PRN (Reason: if MOM ineffective, give on day 5 of no BM)
Fleet Enema 19-7 gram/118 mL Enema
118 ml GA DAILYPRN PRN (Reason: if dulcolax supp ineffective, on day 6 of no BM)
finasteride 5 MG tablet
5 mg PO DAILY
Discharge Orders:
Discharge Patient (As Directed); Ordered 09/13/23
Ordered By: Eber Enamorado
Discharge Date and Time
Print Language: [id number]
== END 2023-09-17 17:01 | DRG 91 ==
LOC: 3 WEST ACU 18:23
PROVIDERS: Family Medicine; Internal Medicine Critical Care Medicine; Nurse Practitioner Gerontology; Physician Assistant; Registered Nurse; ADMITTING PHYSICIAN Internal Medicine; CONSULT PHYSICIAN Internal Medicine Cardiovascular Disease; CONSULT PHYSICIAN Internal Medicine Critical Care Medicine; CONSULT PHYSICIAN Internal Medicine Gastroenterology; CONSULT PHYSICIAN Student in an Organized Health Care Education/Training Program; EMERGENCY PHYSICIAN Emergency Medicine; OTHER PHYSICIAN Nurse Practitioner Family; OTHER PHYSICIAN Psychiatry & Neurology Psychiatry
DX: G92.8 Other toxic encephalopathy (principal); I50.23 Acute on chronic systolic (congestive) heart failure; J96.01 Acute respiratory failure with hypoxia; E87.20 Acidosis, unspecified; E87.3 Alkalosis; F05 Delirium due to known physiological condition; N17.9 Acute kidney failure, unspecified; I48.21 Permanent atrial fibrillation; I11.0 Hypertensive heart disease with heart failure; I25.10 Atherosclerotic heart disease of native coronary artery without angina pectoris; F03.90 Unspecified dementia, unspecified severity, without behavioral disturbance, psychotic disturbance, mood disturbance, and anxiety; Z79.01 Long term (current) use of anticoagulants
CPT/HCPCS: 36600; 70450; 71045; 71046; 74183; 76700; 76770; 80048; 80053; 81003; 81015; 82140; 82248; 82607; 82728; 82746; 82805; 82962; 83010; 83540; 83550; 83605; 83615; 83735; 83880; 84100; 84145; 84466; 85025; 85027; 85045; 85384; 85610; 87040; 87070; 87086; 87502; 87811; 92526; 92610; 93005; 94640; 97110; 97163; 97167; 97530; 97535; 99285; A9575; J2358; J2916

== ENCOUNTER → 2023-09-24 10:22 | Outpatient (REF) | payer OTHER, MEDICARE, SELFPAY ==
[2023-09-24 10:57] LABS: % Basophils 0.4 % (0-2); % Eosinophils 0.9 % (0-6); % Immature Granulocytes 0.5 % (0-0.5); % Monocytes 4.6 % (1.7-9.3); % Neutrophils 78.6 % (42.2-75.2); Absolute Eosinophils 0.1 10^3/uL (0-0.7); Absolute Lymphocytes 0.9 10^3/uL (1.2-3.4); Absolute Monocytes 0.3 10^3/uL (0.1-0.6); Absolute Neutrophils 4.5 10^3/uL (1.4-6.5); Hematocrit 26.9 % (39.0-52.0); Hemoglobin 8.3 g/dL (13.0-18.0); Mean Corp Hgb Conc. 30.9 g/dL (33.0-37.0); Mean Corpuscular Hgb 26.6 pg (27.0-31.0); Mean Corpuscular Volume 86.2 fL (80.0-94.0); Mean Platelet Volume 10.1 fL (7.4-10.4); Nucleated Red Blood Cells % 0 % (-); Platelet Count 103 10^3/uL (130-400); Red Blood Cell Count 3.12 10^6/uL (4.70-6.10); Red Cell Dist. Width 21.8 % (11.5-14.5); White Blood Cell Count 5.7 10^3/uL (4.8-10.8)
[2023-09-24 11:29] LABS: Blood Urea Nitrogen 30 mg/dl (9-20); Calcium 8.5 mg/dl (8.4-10.2); Carbon Dioxide 20 mmol/L (22-30); Chloride 108 mmol/L (98-107); Glucose 90 mg/dl (70-99); Potassium 3.5 mmol/L (3.5-5.1); Sodium 140 mmol/L (135-145); eGFR 59.63
== END ==
LOC: OLABP 10:22
PROVIDERS: ATTENDING PHYSICIAN Family Medicine
DX: J96.01 Acute respiratory failure with hypoxia (principal); J84.10 Pulmonary fibrosis, unspecified; M62.59 Muscle wasting and atrophy, not elsewhere classified, multiple sites; I63.9 Cerebral infarction, unspecified; I50.9 Heart failure, unspecified; J44.9 Chronic obstructive pulmonary disease, unspecified; I25.10 Atherosclerotic heart disease of native coronary artery without angina pectoris; I48.21 Permanent atrial fibrillation; Z86.73 Personal history of transient ischemic attack (TIA), and cerebral infarction without residual deficits; I11.0 Hypertensive heart disease with heart failure; D64.9 Anemia, unspecified
CPT/HCPCS: 36415; 80048; 85025

== ENCOUNTER → 2023-10-02 11:49 | Outpatient (REF) | payer OTHER, MEDICARE, SELFPAY ==
[2023-10-02 12:32] LABS: % Basophils 0.7 % (0-2); % Eosinophils 2.3 % (0-6); % Immature Granulocytes 0.4 % (0-0.5); % Lymphocytes 18.5 % (20.5-51.1); % Monocytes 5.8 % (1.7-9.3); % Neutrophils 72.3 % (42.2-75.2); Absolute Eosinophils 0.1 10^3/uL (0-0.7); Absolute Lymphocytes 1.1 10^3/uL (1.2-3.4); Absolute Monocytes 0.3 10^3/uL (0.1-0.6); Absolute Neutrophils 4.1 10^3/uL (1.4-6.5); Hematocrit 26.4 % (39.0-52.0); Mean Corp Hgb Conc. 30.3 g/dL (33.0-37.0); Mean Corpuscular Hgb 26.2 pg (27.0-31.0); Mean Corpuscular Volume 86.6 fL (80.0-94.0); Nucleated Red Blood Cells % 0 % (-); Platelet Count 121 10^3/uL (130-400); Red Blood Cell Count 3.05 10^6/uL (4.70-6.10); Red Cell Dist. Width 22.2 % (11.5-14.5); White Blood Cell Count 5.7 10^3/uL (4.8-10.8)
[2023-10-02 13:14] LABS: Blood Urea Nitrogen 33 mg/dl (9-20); Calcium 8.8 mg/dl (8.4-10.2); Carbon Dioxide 21 mmol/L (22-30); Chloride 107 mmol/L (98-107); Glucose 77 mg/dl (70-99); Potassium 3.8 mmol/L (3.5-5.1); Sodium 140 mmol/L (135-145); eGFR 39.26
== END ==
LOC: OLABP 11:49
PROVIDERS: ATTENDING PHYSICIAN Family Medicine
DX: J96.01 Acute respiratory failure with hypoxia (principal); J84.10 Pulmonary fibrosis, unspecified; M62.59 Muscle wasting and atrophy, not elsewhere classified, multiple sites; I63.09 Cerebral infarction due to thrombosis of other precerebral artery; M62.81 Muscle weakness (generalized); I11.0 Hypertensive heart disease with heart failure
CPT/HCPCS: 36415; 80048; 85025

== ENCOUNTER → 2023-10-08 10:23 | Outpatient (REF) | payer OTHER, MEDICARE, SELFPAY ==
[2023-10-08 11:19] LABS: % Basophils 0.5 % (0-2); % Eosinophils 2.7 % (0-6); % Immature Granulocytes 0.2 % (0-0.5); % Lymphocytes 18.3 % (20.5-51.1); % Monocytes 5.1 % (1.7-9.3); % Neutrophils 73.2 % (42.2-75.2); Absolute Eosinophils 0.2 10^3/uL (0-0.7); Absolute Monocytes 0.3 10^3/uL (0.1-0.6); Hematocrit 25.6 % (39.0-52.0); Hemoglobin 7.8 g/dL (13.0-18.0); Mean Corp Hgb Conc. 30.5 g/dL (33.0-37.0); Mean Corpuscular Hgb 26.6 pg (27.0-31.0); Mean Corpuscular Volume 87.4 fL (80.0-94.0); Nucleated Red Blood Cells % 0 % (-); Red Blood Cell Count 2.93 10^6/uL (4.70-6.10); Red Cell Dist. Width 21.9 % (11.5-14.5); White Blood Cell Count 5.5 10^3/uL (4.8-10.8)
[2023-10-08 11:33] LABS: Blood Urea Nitrogen 33 mg/dl (9-20); Calcium 8.5 mg/dl (8.4-10.2); Carbon Dioxide 21 mmol/L (22-30); Chloride 109 mmol/L (98-107); Glucose 70 mg/dl (70-99); Potassium 3.7 mmol/L (3.5-5.1); Sodium 138 mmol/L (135-145); eGFR 54.17
[2023-10-08 11:54] LABS: Mean Platelet Volume 9.6 fL (7.4-10.4)
[2023-10-08 11:55] LABS: Platelet Count 96 10^3/uL (130-400)
== END ==
LOC: OLABP 10:23
PROVIDERS: ATTENDING PHYSICIAN Family Medicine
DX: J96.01 Acute respiratory failure with hypoxia (principal); J84.10 Pulmonary fibrosis, unspecified; M62.59 Muscle wasting and atrophy, not elsewhere classified, multiple sites; I63.9 Cerebral infarction, unspecified; I50.9 Heart failure, unspecified; J44.9 Chronic obstructive pulmonary disease, unspecified; I25.10 Atherosclerotic heart disease of native coronary artery without angina pectoris; I48.21 Permanent atrial fibrillation
CPT/HCPCS: 36415; 80048; 85025

== ENCOUNTER → 2023-10-15 12:44 | Outpatient (REF) | payer OTHER, MEDICARE, SELFPAY ==
[2023-10-15 13:29] LABS: % Basophils 0.4 % (0-2); % Immature Granulocytes 0.6 % (0-0.5); % Lymphocytes 22.7 % (20.5-51.1); % Monocytes 5.4 % (1.7-9.3); % Neutrophils 67.9 % (42.2-75.2); Absolute Eosinophils 0.2 10^3/uL (0-0.7); Absolute Lymphocytes 1.1 10^3/uL (1.2-3.4); Absolute Monocytes 0.3 10^3/uL (0.1-0.6); Absolute Neutrophils 3.4 10^3/uL (1.4-6.5); Hematocrit 24.8 % (39.0-52.0); Hemoglobin 7.6 g/dL (13.0-18.0); Mean Corp Hgb Conc. 30.6 g/dL (33.0-37.0); Mean Corpuscular Hgb 26.8 pg (27.0-31.0); Mean Corpuscular Volume 87.3 fL (80.0-94.0); Mean Platelet Volume 9.5 fL (7.4-10.4); Nucleated Red Blood Cells % 0 % (-); Platelet Count 103 10^3/uL (130-400); Red Blood Cell Count 2.84 10^6/uL (4.70-6.10); Red Cell Dist. Width 22.4 % (11.5-14.5)
[2023-10-15 13:41] LABS: Blood Urea Nitrogen 23 mg/dl (9-20); Calcium 8.4 mg/dl (8.4-10.2); Carbon Dioxide 19 mmol/L (22-30); Chloride 112 mmol/L (98-107); Glucose 73 mg/dl (70-99); Potassium 3.8 mmol/L (3.5-5.1); Sodium 141 mmol/L (135-145); eGFR > 60.00
[2023-10-15 14:26] LABS: Normal RBC Morphology No
[2023-10-15 14:30] LABS: Ovalocytes FEW
== END ==
LOC: OLABP 12:44
PROVIDERS: ATTENDING PHYSICIAN Family Medicine
DX: J96.01 Acute respiratory failure with hypoxia (principal); J84.10 Pulmonary fibrosis, unspecified; M62.59 Muscle wasting and atrophy, not elsewhere classified, multiple sites; M62.81 Muscle weakness (generalized); I63.9 Cerebral infarction, unspecified; I50.9 Heart failure, unspecified; J44.9 Chronic obstructive pulmonary disease, unspecified; I25.10 Atherosclerotic heart disease of native coronary artery without angina pectoris; I48.21 Permanent atrial fibrillation
CPT/HCPCS: 36415; 80048; 85025

== ENCOUNTER → 2023-10-22 12:08 | Outpatient (REF) | payer OTHER, MEDICARE, SELFPAY ==
[2023-10-22 12:29] LABS: % Basophils 0.5 % (0-2); % Eosinophils 0.8 % (0-6); % Immature Granulocytes 0.6 % (0-0.5); % Lymphocytes 14.1 % (20.5-51.1); % Monocytes 5.2 % (1.7-9.3); % Neutrophils 78.8 % (42.2-75.2); Absolute Eosinophils 0.1 10^3/uL (0-0.7); Absolute Lymphocytes 0.9 10^3/uL (1.2-3.4); Absolute Monocytes 0.3 10^3/uL (0.1-0.6); Absolute Neutrophils 5.2 10^3/uL (1.4-6.5); Hemoglobin 8.1 g/dL (13.0-18.0); Mean Corpuscular Hgb 26.6 pg (27.0-31.0); Mean Corpuscular Volume 88.5 fL (80.0-94.0); Mean Platelet Volume 9.7 fL (7.4-10.4); Nucleated Red Blood Cells % 0 % (-); Platelet Count 103 10^3/uL (130-400); Red Blood Cell Count 3.05 10^6/uL (4.70-6.10); Red Cell Dist. Width 21.8 % (11.5-14.5); White Blood Cell Count 6.5 10^3/uL (4.8-10.8)
[2023-10-22 12:35] LABS: Blood Urea Nitrogen 24 mg/dl (9-20); Calcium 8.5 mg/dl (8.4-10.2); Carbon Dioxide 19 mmol/L (22-30); Chloride 108 mmol/L (98-107); Glucose 65 mg/dl (70-99); Potassium 3.7 mmol/L (3.5-5.1); Sodium 138 mmol/L (135-145); eGFR 59.63
== END ==
LOC: OLABP 12:08
PROVIDERS: ATTENDING PHYSICIAN Family Medicine
DX: J96.01 Acute respiratory failure with hypoxia (principal); J84.10 Pulmonary fibrosis, unspecified; M62.59 Muscle wasting and atrophy, not elsewhere classified, multiple sites; M62.81 Muscle weakness (generalized); I63.9 Cerebral infarction, unspecified; I50.9 Heart failure, unspecified; J44.9 Chronic obstructive pulmonary disease, unspecified; I25.10 Atherosclerotic heart disease of native coronary artery without angina pectoris; I48.21 Permanent atrial fibrillation
CPT/HCPCS: 36415; 80048; 85025